=== PATIENT | female | born 1955 | race Caucasian/White ===

== ENCOUNTER 2017-07-06 08:04 | Emergency (ER) | payer OTHER ==
[~2017-07-06] VITALS: Ht 157.5 cm; Wt 63.5 kg
[~2017-07-06 08:04] MED LIST: ALBU90OI INH; CODGUAEL PO; Mucinex600 MG PO; Prilosec Otc20 MG PO; Vistaril50 MG PO
[2017-07-06] MEDS ORDERED: HYDCHL25 PO (08:10)
[2017-07-06] MEDS ORDERED: ATEN25 PO (08:10)
[2017-07-06 09:01] LABS: Source, Urine Voided
[2017-07-06 09:07] LABS: BASOPHILS ABSOLUTE AUTO 0.04 K/mm3 (0.00-0.23); BASOPHILS PERCENT AUTO 1 % (0-2); EOSINOPHILS ABSOLUTE AUTO 0.08 K/mm3 (0.00-0.68); EOSINOPHILS PERCENT AUTO 1 % (0-6); Hematocrit 39.9 % (33.0-51.0); Hemoglobin 13.5 g/dL (11.5-16.0); IMMATURE GRAN ABSOLUTE AUTO 0.02 K/mm3 (0.00-0.10); IMMATURE GRAN PERCENT AUTO 0 % (0-1); LYMPHOCYTES ABSOLUTE AUTO 1.84 K/mm3 (0.84-5.20); LYMPHOCYTES PERCENT AUTO 24 % (21-46); MONOCYTES ABSOLUTE AUTO 0.41 K/mm3 (0.16-1.47); MONOCYTES PERCENT AUTO 5 % (4-13); Mean Corpuscular HGB 34.4 pg (26.0-34.0); Mean Corpuscular HGB Conc 33.8 g/dL (31.5-36.5); Mean Corpuscular Volume 102 fL (80-100); Mean Platelet Volume 9.4 fL (9.1-12.4); NEUTROPHILS ABSOLUTE AUTO 5.28 K/mm3 (1.96-9.15); NEUTROPHILS PERCENT AUTO 69 % (41-73); Platelet Count 207 K/mm3 (150-400); RDW Coefficient Variation 11.5 % (11.7-14.2); RDW Standard Deviation 42.8 fL (35.1-46.3); Red Blood Cell Count 3.92 M/mm3 (3.80-5.20); White Blood Cell Count 7.67 K/mm3 (4.00-11.30)
[2017-07-06 09:13] LABS: Blood, Urine Neg (Neg); Glucose Qualitative, Urine Neg (Neg); Ketones, Urine 1+ (Neg); Leukocyte Esterase, Urine 1+ (Neg); Nitrite, Urine Neg (Neg); Protein, Urine 2+ (Neg); Urobilinogen, Urine 2+ (Normal)
[2017-07-06 09:36] LABS: Alanine Aminotransfer (ALT/SGP 29 U/L (12-78); Albumin/Globulin Ratio 0.5 (0.8-1.8); Alk Phos 151 U/L (50-136); Anion Gap 12 mmol/L (6-16); Aspartate Aminotrans (AST/SGOT 58 U/L (12-37); Bilirubin, Total 1.4 mg/dL (0.1-1.0); Blood Urea Nitrogen 12 mg/dL (8-24); Bun/Creatinine Ratio 15.5 (12.0-20.0); CO2, Blood 24 mmol/L (21-32); Calcium, Blood 9.1 mg/dL (8.5-10.1); Chloride, Blood 99 mmol/L (98-108); Creatinine, Blood 0.77 mg/dL (0.40-1.00); Globulin, Blood 5.8 g/dL (2.2-4.0); Glomerular Filtration Rate >60 (60-); Glucose, Blood 120 mg/dL (70-99); Potassium, Blood 3.4 mmol/L (3.5-5.5); Sodium, Blood 135 mmol/L (136-145); Total Protein, Blood 8.8 g/dL (6.4-8.2)
[2017-07-06 09:37] LABS: Influenza A Negative (NEGATIVE); Influenza B Negative (NEGATIVE)
[2017-07-06 09:42] LABS: Bilirubin, Urine 1+ (Neg)
[2017-07-06 09:43] LABS: Appearance, Urine Hazy (Clear); Color, Urine Amber (P-Yellow)
[2017-07-06 09:46] LABS: Red Blood Cells, Urine Not Seen /hpf (0-2)
[2017-07-06 09:47] LABS: Bacteria Few /hpf; Mucus Light (0-Heavy); Squamous Epithelial Cells Few /hpf (Few)
[2017-07-06] MEDS ORDERED: Zofran Odt4 MG SL (10:43)
== END 2017-07-06 11:00 | disposition home or self-care (01) ==
LOC: ER 08:04
PROVIDERS: Psychiatry & Neurology Psychiatry
DX: R11.2 Nausea with vomiting, unspecified (principal); R19.7 Diarrhea, unspecified; I10 Essential (primary) hypertension; J45.909 Unspecified asthma, uncomplicated; K21.9 Gastro-esophageal reflux disease without esophagitis; F41.9 Anxiety disorder, unspecified; Z88.5 Allergy status to narcotic agent; Z88.8 Allergy status to other drugs, medicaments and biological substances; Z79.899 Other long term (current) drug therapy
CPT/HCPCS: 36415; 71046; 76705; 80053; 81001; 83690; 85025; 87086; 87804; 96361; 96374; 96375; 96376; 99284; J2405; J3010; J7030

== ENCOUNTER 2018-07-12 08:34 | Emergency (ER) | payer OTHER ==
[~2018-07-12] VITALS: Ht 157.5 cm; Wt 65.8 kg
[~2018-07-12 08:34] MED LIST changes: +ATEN25 PO; +HYDCHL25 PO; +Zofran Odt4 MG SL
[2018-07-12 09:17] LABS: BASOPHILS ABSOLUTE AUTO 0.05 K/mm3 (0.00-0.23); BASOPHILS PERCENT AUTO 1 % (0-2); EOSINOPHILS PERCENT AUTO 2 % (0-6); Hemoglobin 12.5 g/dL (11.5-16.0); IMMATURE GRAN ABSOLUTE AUTO 0.01 K/mm3 (0.00-0.10); IMMATURE GRAN PERCENT AUTO 0 % (0-1); LYMPHOCYTES PERCENT AUTO 34 % (21-46); MONOCYTES ABSOLUTE AUTO 0.42 K/mm3 (0.16-1.47); MONOCYTES PERCENT AUTO 9 % (4-13); Mean Corpuscular HGB 33.8 pg (26.0-34.0); Mean Corpuscular HGB Conc 34.7 g/dL (31.5-36.5); Mean Corpuscular Volume 97 fL (80-100); Mean Platelet Volume 9.8 fL (9.1-12.4); NEUTROPHILS ABSOLUTE AUTO 2.38 K/mm3 (1.96-9.15); NEUTROPHILS PERCENT AUTO 54 % (41-73); Platelet Count 95 K/mm3 (150-400); RDW Coefficient Variation 12.6 % (11.7-14.2); RDW Standard Deviation 44.9 fL (35.1-46.3); White Blood Cell Count 4.46 K/mm3 (4.00-11.30)
[2018-07-12 09:38] LABS: Alanine Aminotransfer (ALT/SGP 21 U/L (12-78); Albumin, Blood 3.2 g/dL (3.4-5.0); Albumin/Globulin Ratio 0.6 (0.8-1.8); Alk Phos 104 U/L (50-136); Anion Gap 8 mmol/L (6-16); Aspartate Aminotrans (AST/SGOT 34 U/L (12-37); Blood Urea Nitrogen 11 mg/dL (8-24); Bun/Creatinine Ratio 16.9 (12.0-20.0); CO2, Blood 24 mmol/L (21-32); Calcium, Blood 9.2 mg/dL (8.5-10.1); Chloride, Blood 103 mmol/L (98-108); Creatinine, Blood 0.65 mg/dL (0.40-1.00); Globulin, Blood 5.4 g/dL (2.2-4.0); Glomerular Filtration Rate >60 (60-); Glucose, Blood 97 mg/dL (70-99); Potassium, Blood 3.6 mmol/L (3.5-5.5); Sodium, Blood 135 mmol/L (136-145); Total Protein, Blood 8.6 g/dL (6.4-8.2); Troponin I <0.015 ng/mL (0.000-0.040)
== END 2018-07-12 10:40 | disposition home or self-care (01) ==
LOC: ER 08:34
PROVIDERS: Emergency Medicine
DX: R06.00 Dyspnea, unspecified (principal); M67.432 Ganglion, left wrist; M67.431 Ganglion, right wrist; K21.9 Gastro-esophageal reflux disease without esophagitis; Z87.891 Personal history of nicotine dependence; Z79.899 Other long term (current) drug therapy
CPT/HCPCS: 36415; 71046; 80053; 83880; 84484; 85025; 93005; 93010; 99285-25

== ENCOUNTER → 2018-07-20 | Outpatient (CLI) | payer OTHER ==
[2018-07-20 15:15] LABS: CHOL/HDL RATIO 3.9; Cholesterol 243 mg/dL (50-200); HDL Cholesterol 63 mg/dL (>39); LDL/HDL RATIO 2.5; Low Density Lipoprotein Chol 156 mg/dL (0-110); Triglycerides 121 mg/dL (30-160); Very Low Density Lipoprot Chol 24 mg/dL (6-32)
== END | disposition home or self-care (01) ==
LOC: LAB SHORT 14:55 → LAB 14:55
PROVIDERS: Physician Assistant
DX: E78.5 Hyperlipidemia, unspecified (principal)
CPT/HCPCS: 80061

== ENCOUNTER 2018-08-16 02:46 | Emergency (ER) | payer OTHER ==
[~2018-08-16] VITALS: Ht 157.5 cm; Wt 65.8 kg
[2018-08-16 03:13] LABS: BASOPHILS ABSOLUTE AUTO 0.04 K/mm3 (0.00-0.23); BASOPHILS PERCENT AUTO 1 % (0-2); EOSINOPHILS ABSOLUTE AUTO 0.08 K/mm3 (0.00-0.68); EOSINOPHILS PERCENT AUTO 2 % (0-6); Hematocrit 31.9 % (33.0-51.0); IMMATURE GRAN ABSOLUTE AUTO 0.02 K/mm3 (0.00-0.10); IMMATURE GRAN PERCENT AUTO 0 % (0-1); LYMPHOCYTES ABSOLUTE AUTO 1.68 K/mm3 (0.84-5.20); LYMPHOCYTES PERCENT AUTO 31 % (21-46); MONOCYTES ABSOLUTE AUTO 0.49 K/mm3 (0.16-1.47); MONOCYTES PERCENT AUTO 9 % (4-13); Mean Corpuscular HGB 34.8 pg (26.0-34.0); Mean Corpuscular HGB Conc 34.5 g/dL (31.5-36.5); Mean Corpuscular Volume 101 fL (80-100); NEUTROPHILS PERCENT AUTO 57 % (41-73); RDW Coefficient Variation 12.9 % (11.7-14.2); RDW Standard Deviation 47.6 fL (35.1-46.3); Red Blood Cell Count 3.16 M/mm3 (3.80-5.20); White Blood Cell Count 5.41 K/mm3 (4.00-11.30)
[2018-08-16 03:15] LABS: Mean Platelet Volume 10.6 fL (9.1-12.4)
[2018-08-16 03:16] LABS: Platelet Count 39 K/mm3 (150-400)
[2018-08-16 03:25] LABS: Alanine Aminotransfer (ALT/SGP 28 U/L (12-78); Albumin, Blood 3.2 g/dL (3.4-5.0); Albumin/Globulin Ratio 0.6 (0.8-1.8); Alk Phos 109 U/L (50-136); Anion Gap 15 mmol/L (6-16); Aspartate Aminotrans (AST/SGOT 61 U/L (12-37); Bilirubin, Total 3.2 mg/dL (0.1-1.0); Blood Urea Nitrogen 17 mg/dL (8-24); Bun/Creatinine Ratio 26.9 (12.0-20.0); CO2, Blood 21 mmol/L (21-32); Calcium, Blood 8.8 mg/dL (8.5-10.1); Chloride, Blood 99 mmol/L (98-108); Creatinine, Blood 0.63 mg/dL (0.40-1.00); Ethanol (Alcohol), Blood, Med <3 mg/dL; Globulin, Blood 5.1 g/dL (2.2-4.0); Glomerular Filtration Rate >60 (60-); Glucose, Blood 77 mg/dL (70-99); Potassium, Blood 3.5 mmol/L (3.5-5.5); Sodium, Blood 135 mmol/L (136-145); Total Protein, Blood 8.3 g/dL (6.4-8.2)
[2018-08-16] MEDS ORDERED: CHLO25 PO (04:05)
[2018-08-16] MEDS ORDERED: ONDA4ODT MM (04:06)
== END 2018-08-16 04:23 | disposition home or self-care (01) ==
LOC: ER 02:46
PROVIDERS: Emergency Medicine
DX: F10.239 Alcohol dependence with withdrawal, unspecified (principal); R19.7 Diarrhea, unspecified; D69.6 Thrombocytopenia, unspecified; E80.6 Other disorders of bilirubin metabolism; Y90.0 Blood alcohol level of less than 20 mg/100 ml; K21.9 Gastro-esophageal reflux disease without esophagitis; J45.909 Unspecified asthma, uncomplicated; I10 Essential (primary) hypertension; F41.9 Anxiety disorder, unspecified; Z88.5 Allergy status to narcotic agent; Z88.8 Allergy status to other drugs, medicaments and biological substances; Z79.899 Other long term (current) drug therapy; Z87.891 Personal history of nicotine dependence
CPT/HCPCS: 80053; 83690; 85025; 93005; 93010; 96374; 96375; 99285-25; G0480; J2060; J2550; J7030

== ENCOUNTER → 2018-11-30 | Outpatient (CLI) | payer OTHER ==
[~2018-11-30] MED LIST changes: +CHLO25 PO; +LISI5; +ONDA4ODT MM
[2018-11-30 21:11] LABS: Hematocrit 35.5 % (33.0-51.0); Hemoglobin 11.9 g/dL (11.5-16.0); Mean Corpuscular HGB 34.6 pg (26.0-34.0); Mean Corpuscular HGB Conc 33.5 g/dL (31.5-36.5); Mean Corpuscular Volume 103 fL (80-100); Mean Platelet Volume 11.2 fL (9.1-12.4); Platelet Count 68 K/mm3 (150-400); RDW Coefficient Variation 13.8 % (11.7-14.2); RDW Standard Deviation 52.2 fL (35.1-46.3); Red Blood Cell Count 3.44 M/mm3 (3.80-5.20); White Blood Cell Count 4.76 K/mm3 (4.00-11.30)
[2018-11-30 21:32] LABS: BASOPHILS PERCENT MAN 0 % (0-2); EOSINOPHILS ABSOLUTE MAN 0.04 K/mm3 (0.00-0.68); EOSINOPHILS PERCENT MAN 1 % (0-6); LYMPHOCYTES ABSOLUTE MAN 1.61 K/mm3 (0.84-5.20); LYMPHOCYTES PERCENT MAN 34 % (21-46); MONOCYTES ABSOLUTE MAN 0.38 K/mm3 (0.16-1.47); MONOCYTES PERCENT MAN 8 % (4-13); NEUTROPHILS ABSOLUTE MAN 2.71 K/mm3 (1.96-9.15); SEG NEUTROPHILS PERCENT MAN 57 % (41-73); TOTAL CELLS COUNTED 100
[2018-11-30 21:36] LABS: Alanine Aminotransfer (ALT/SGP 35 U/L (12-78); Albumin, Blood 3.4 g/dL (3.4-5.0); Albumin/Globulin Ratio 0.6 (0.8-1.8); Alk Phos 118 U/L (50-136); Anion Gap 8 mmol/L (6-16); Aspartate Aminotrans (AST/SGOT 53 U/L (12-37); Blood Urea Nitrogen 18 mg/dL (8-24); Bun/Creatinine Ratio 27.3 (12.0-20.0); CO2, Blood 26 mmol/L (21-32); Calcium, Blood 8.8 mg/dL (8.5-10.1); Chloride, Blood 103 mmol/L (98-108); Creatinine, Blood 0.66 mg/dL (0.40-1.00); Globulin, Blood 5.5 g/dL (2.2-4.0); Glomerular Filtration Rate >60 (60-); Glucose, Blood 90 mg/dL (70-99); Potassium, Blood 3.6 mmol/L (3.5-5.5); Sodium, Blood 137 mmol/L (136-145); Total Protein, Blood 8.9 g/dL (6.4-8.2)
== END | disposition home or self-care (01) ==
LOC: LAB 20:29 → LAB SHORT 20:29
PROVIDERS: Physician Assistant
DX: D69.6 Thrombocytopenia, unspecified (principal); I10 Essential (primary) hypertension
CPT/HCPCS: 80053; 85007; 85027

== ENCOUNTER → 2018-12-23 | Outpatient (CLI) | payer OTHER | END | disposition home or self-care (01) | LOC: LAB 18:11 → LAB SHORT 18:11 | DX: D51.8 Other vitamin B12 deficiency anemias (principal) | CPT/HCPCS: 82607; 82746 ==

== ENCOUNTER 2019-01-12 09:26 | Emergency (ER) | payer OTHER ==
[~2019-01-12] VITALS: Ht 157.5 cm; Wt 64.4 kg
[~2019-01-12 09:26] MED LIST changes: -LISI5
[2019-01-12] MEDS ORDERED: LISI5 (09:52)
== END 2019-01-12 11:41 | disposition home or self-care (01) ==
LOC: ER 09:26
DX: M19.042 Primary osteoarthritis, left hand (principal); M19.041 Primary osteoarthritis, right hand; Z88.5 Allergy status to narcotic agent; Z88.8 Allergy status to other drugs, medicaments and biological substances; Z79.899 Other long term (current) drug therapy; K21.9 Gastro-esophageal reflux disease without esophagitis; J45.909 Unspecified asthma, uncomplicated; I10 Essential (primary) hypertension; F41.9 Anxiety disorder, unspecified; Z87.891 Personal history of nicotine dependence
CPT/HCPCS: 73120; 73130; 99283-25; A9270-GY

== ENCOUNTER 2019-05-22 18:22 | Emergency (ER) | payer OTHER ==
[~2019-05-22] VITALS: Ht 157.5 cm; Wt 65.8 kg
[~2019-05-22 18:22] MED LIST changes: +LISI5
== END 2019-05-22 19:50 | disposition home or self-care (01) ==
LOC: ER 18:22
DX: F41.9 Anxiety disorder, unspecified (principal); J45.909 Unspecified asthma, uncomplicated; I10 Essential (primary) hypertension; K21.9 Gastro-esophageal reflux disease without esophagitis; Z88.5 Allergy status to narcotic agent; Z88.8 Allergy status to other drugs, medicaments and biological substances; Z79.899 Other long term (current) drug therapy; Z87.891 Personal history of nicotine dependence
CPT/HCPCS: 36415; 93005; 93010; 99283-25

== ENCOUNTER 2019-09-05 08:19 | Inpatient (IN) | payer OTHER ==
[~2019-09-05] VITALS: Ht 157.5 cm; Wt 69.9 kg
[2019-09-05 08:42] LABS: BASOPHILS ABSOLUTE AUTO 0.06 K/mm3 (0.00-0.23); BASOPHILS PERCENT AUTO 1 % (0-2); EOSINOPHILS ABSOLUTE AUTO 0.02 K/mm3 (0.00-0.68); EOSINOPHILS PERCENT AUTO 0 % (0-6); Hematocrit 21.3 % (33.0-51.0); Hemoglobin 6.7 g/dL (11.5-16.0); IMMATURE GRAN ABSOLUTE AUTO 0.06 K/mm3 (0.00-0.10); IMMATURE GRAN PERCENT AUTO 1 % (0-1); LYMPHOCYTES PERCENT AUTO 12 % (21-46); MONOCYTES ABSOLUTE AUTO 0.72 K/mm3 (0.16-1.47); MONOCYTES PERCENT AUTO 9 % (4-13); Mean Corpuscular HGB 34.7 pg (26.0-34.0); Mean Corpuscular HGB Conc 31.5 g/dL (31.5-36.5); Mean Corpuscular Volume 110 fL (80-100); Mean Platelet Volume 11.6 fL (9.1-12.4); NEUTROPHILS ABSOLUTE AUTO 6.18 K/mm3 (1.96-9.15); NEUTROPHILS PERCENT AUTO 77 % (41-73); Platelet Count 79 K/mm3 (150-400); RDW Coefficient Variation 15.6 % (11.7-14.2); RDW Standard Deviation 63.1 fL (35.1-46.3); Red Blood Cell Count 1.93 M/mm3 (3.80-5.20); White Blood Cell Count 8.04 K/mm3 (4.00-11.30)
[2019-09-05 08:51] LABS: Alanine Aminotransfer (ALT/SGP 48 U/L (12-78); Albumin, Blood 2.3 g/dL (3.4-5.0); Albumin/Globulin Ratio 0.4 (0.8-1.8); Alk Phos 108 U/L (50-136); Anion Gap 14 mmol/L (6-16); Aspartate Aminotrans (AST/SGOT 158 U/L (12-37); Bilirubin, Total 5.5 mg/dL (0.1-1.0); Blood Urea Nitrogen 43 mg/dL (8-24); Bun/Creatinine Ratio 47.5 (12.0-20.0); CO2, Blood 19 mmol/L (21-32); Calcium, Blood 8.1 mg/dL (8.5-10.1); Chloride, Blood 99 mmol/L (98-108); Creatinine, Blood 0.91 mg/dL (0.40-1.00); Globulin, Blood 5.2 g/dL (2.2-4.0); Glomerular Filtration Rate >60 (60-); Glucose, Blood 128 mg/dL (70-99); Potassium, Blood 4.1 mmol/L (3.5-5.5); Sodium, Blood 132 mmol/L (136-145); Total Protein, Blood 7.5 g/dL (6.4-8.2)
[2019-09-05] MEDS ORDERED: Prinivil10 MG PO (10:52)
[2019-09-05 14:31] LABS: Hematocrit 22.9 % (33.0-51.0); Hemoglobin 7.5 g/dL (11.5-16.0)
[2019-09-05 14:50] LABS: Percent Saturation 21.7 % (15.0-50.0)
[2019-09-05 17:34] LABS: U Amphetamine Screen Not Detected; U Barbituate Screen Not Detected; U Benzodiazapine Screen Not Detected; U Buprenorphine Screen Not Detected; U Cannabinoids Screen Not Detected; U Cocaine Screen Not Detected; U Methadone Screen Not Detected; U Methamphetamine Screen Not Detected; U Opiates Screen Not Detected; U Oxycodone Screen Not Detected; U Phencyclidine Screen Not Detected; U Propoxyphene Screen Not Detected
[2019-09-05 17:37] LABS: Source, Urine Clean Catch
[2019-09-05 17:48] LABS: Blood, Urine 1+ (Neg); Glucose Qualitative, Urine Neg (Neg); Ketones, Urine 2+ (Neg); Leukocyte Esterase, Urine 1+ (Neg); Nitrite, Urine Neg (Neg); Protein, Urine 1+ (Neg); Specific Gravity, Urine 1.015 (1.003-1.022); Urobilinogen, Urine 2+ (Normal)
[2019-09-05 17:56] LABS: Appearance, Urine Clear (Clear); Bilirubin, Urine 1+ (Neg); Color, Urine Amber (P-Yellow)
[2019-09-05 17:57] LABS: Bacteria Mod /hpf; Squamous Epithelial Cells Few /hpf (Few)
--- NOTE | 2019-09-05 19:27 | NUR ---
SHIFT SUMMARY: PATIENT ADMIT FROM ED THIS SHIFT. PT A&O; CALM AND COOPERATIVE WITH CARE. NO C/O PAIN SINCE ARRIVAL ON MEDICAL. PRBCs X2U THIS SHIFT; PT TOLERATED WELL. HX ETOH; CIWA NEG. IV FLUIDS & SANDOSTATIN CONTINUING. REPORT GIVEN TO ONCOMING RN.
[2019-09-05 20:07] LABS: Hematocrit 26.2 % (33.0-51.0); Hemoglobin 8.8 g/dL (11.5-16.0)
[2019-09-06 02:16] LABS: BASOPHILS ABSOLUTE AUTO 0.04 K/mm3 (0.00-0.23); BASOPHILS PERCENT AUTO 1 % (0-2); EOSINOPHILS ABSOLUTE AUTO 0.15 K/mm3 (0.00-0.68); EOSINOPHILS PERCENT AUTO 3 % (0-6); Hematocrit 25.1 % (33.0-51.0); Hemoglobin 8.5 g/dL (11.5-16.0); IMMATURE GRAN ABSOLUTE AUTO 0.01 K/mm3 (0.00-0.10); IMMATURE GRAN PERCENT AUTO 0 % (0-1); LYMPHOCYTES ABSOLUTE AUTO 1.18 K/mm3 (0.84-5.20); LYMPHOCYTES PERCENT AUTO 20 % (21-46); MONOCYTES ABSOLUTE AUTO 0.56 K/mm3 (0.16-1.47); MONOCYTES PERCENT AUTO 10 % (4-13); Mean Corpuscular HGB 33.3 pg (26.0-34.0); Mean Corpuscular HGB Conc 33.9 g/dL (31.5-36.5); NEUTROPHILS ABSOLUTE AUTO 3.87 K/mm3 (1.96-9.15); NEUTROPHILS PERCENT AUTO 67 % (41-73); Platelet Count 53 K/mm3 (150-400); RDW Coefficient Variation 20.5 % (11.7-14.2); RDW Standard Deviation 72.4 fL (35.1-46.3); Red Blood Cell Count 2.55 M/mm3 (3.80-5.20); White Blood Cell Count 5.81 K/mm3 (4.00-11.30)
[2019-09-06 02:19] LABS: Mean Corpuscular Volume 98 fL (80-100)
[2019-09-06 02:28] LABS: International Normalized Ratio 1.4; Prothrombin Time Results 14.7 Sec (9.7-11.5)
[2019-09-06 02:29] LABS: Anion Gap 8 mmol/L (6-16); Blood Urea Nitrogen 34 mg/dL (8-24); Bun/Creatinine Ratio 38.4 (12.0-20.0); CO2, Blood 25 mmol/L (21-32); Calcium, Blood 7.6 mg/dL (8.5-10.1); Chloride, Blood 104 mmol/L (98-108); Creatinine, Blood 0.89 mg/dL (0.40-1.00); Glomerular Filtration Rate >60 (60-); Glucose, Blood 133 mg/dL (70-99); Potassium, Blood 3.6 mmol/L (3.5-5.5); Sodium, Blood 137 mmol/L (136-145)
--- NOTE | 2019-09-06 04:25 | NUR ---
SHIFT SUMMARY ADMITTED FOR GI BLEED. FULL CODE. CIWA Q 4 HRS HAVE BEEN NEGATIVE. NPO @ MIDNIGHT THIS SHIFT FOR POSSIBLE SCOPE TODAY. DR SYLVESTER IS GI CONSULT. NS IS INFUSING @ 100 ML/HR, OCTREOTIDE @ 20 ML/HR. BANANA BAGS ARE SCHEDULED X2 MORE BAGS. HGB WAS UP TO 8.8, AND HCT WAS UP TO 26.2 AT LAST LAB DRAW - AWAITING NEW LABS.
--- NOTE | 2019-09-06 07:32 | NUR ---
09/06/19 0732 Akiko Huggins History, Chart, Medications and Allergies reviewed before start of procedure. 3-LEAD EKG REVIEWED WITH PHYSICIAN PRIOR TO START OF PROCEDURE. MONITOR INTACT WITH CONTINUOUS PULSE OXIMETRY AND INTERMITTENT BP. O2 VIA N/C INTACT THROUGHOUT SEDATION/PROCEDURE. PATIENT DETERMINED TO BE ASA APPROPRIATE FOR PROPOFOL SEDATION PRIOR TO START OF PROCEDURE BY DR. SYLVESTER.
[2019-09-06 09:31] LABS: Hematocrit 27.7 % (33.0-51.0); Hemoglobin 9.1 g/dL (11.5-16.0)
[2019-09-06 14:55] LABS: Albumin, Body Fluid 0.3 g/dL
[2019-09-06 14:58] LABS: Automated BF WBC Count 0.059 K/mm3 (0-999); Body Fluid WBC Count 59 /mm3 (0-999)
[2019-09-06 15:34] LABS: RBC Count, Body Fluid 475 /mm3 (0-0)
[2019-09-06 15:37] LABS: Appearance, Body Fluid Clear (Clear); Color, Body Fluid Yellow (None-Yellow)
[2019-09-06 16:07] LABS: Total Cell Count, Body Fluid 100
--- NOTE | 2019-09-06 19:27 | NUR ---
SHIFT SUMMARY: PT A&O CALM AND COOPERATIVE WITH CARE; SBA TO BATHROOM. UPPER ENDO c BANDING LIGATION THIS SHIFT; PT TOLERATED WELL. THERAPEUTIC PARACENTESIS THIS SHIFT; PT TOLERATED WELL; VSS; NO C/O PAIN/NAUSEA THIS SHIFT. CIWA Q4H; SCORE=0 THROUGHOUT SHIFT. IV FLUIDS CONTINUING. REPORT GIVEN TO ONCOMING RN.
[2019-09-07 04:58] LABS: Hematocrit 26.3 % (33.0-51.0); Hemoglobin 8.6 g/dL (11.5-16.0); Mean Corpuscular HGB Conc 32.7 g/dL (31.5-36.5); Mean Platelet Volume 10.4 fL (9.1-12.4); Platelet Count 57 K/mm3 (150-400); RDW Coefficient Variation 20.1 % (11.7-14.2); Red Blood Cell Count 2.61 M/mm3 (3.80-5.20); White Blood Cell Count 4.26 K/mm3 (4.00-11.30)
[2019-09-07 05:00] LABS: Mean Corpuscular Volume 101 fL (80-100)
[2019-09-07 05:24] LABS: Alanine Aminotransfer (ALT/SGP 43 U/L (12-78); Albumin, Blood 2.1 g/dL (3.4-5.0); Albumin/Globulin Ratio 0.5 (0.8-1.8); Alk Phos 85 U/L (50-136); Anion Gap 8 mmol/L (6-16); Aspartate Aminotrans (AST/SGOT 130 U/L (12-37); Bilirubin, Total 4.6 mg/dL (0.1-1.0); Blood Urea Nitrogen 18 mg/dL (8-24); Bun/Creatinine Ratio 25.1 (12.0-20.0); CO2, Blood 23 mmol/L (21-32); Calcium, Blood 7.7 mg/dL (8.5-10.1); Chloride, Blood 107 mmol/L (98-108); Creatinine, Blood 0.72 mg/dL (0.40-1.00); Globulin, Blood 4.5 g/dL (2.2-4.0); Glomerular Filtration Rate >60 (60-); Glucose, Blood 105 mg/dL (70-99); Potassium, Blood 3.7 mmol/L (3.5-5.5); Sodium, Blood 138 mmol/L (136-145); Total Protein, Blood 6.6 g/dL (6.4-8.2)
--- NOTE | 2019-09-07 07:00 | NUR ---
ASSUMED CARE: PT RESTING QUIETLY IN BED WATCHING TV. SPEAKS WITH STAFF. DENIES NEEDS OR CONCERNS AT THIS TIME.
[2019-09-07 07:07] LABS: HBSAG SCREEN Negative (Negative); HEP A AB, IGM Negative (Negative); HEP B CORE AB, IGM Negative (Negative); HEP B CORE AB, TOT Positive (Negative); HEP C VIRUS AB 0.1 (0.0-0.9); HEP C VIRUS AB <0.1 (0.0-0.9)
--- NOTE | 2019-09-07 07:17 | NUR ---
SHIFT SUMMARY: PATIENT IS A&OX4, NO REPORTS OF PAIN OR DISCOMFORT, CIWA IS ZERO AND VS ARE STABLE. PATIENT IS INDEPENDANT IN THE ROOM. NO BM THIS SHIFT AND TOLERATING FULL LIQUID DIET WELL AND LOOKING FORWARD TO SOME SOLID FOOD TODAY.
[2019-09-07] MEDS ORDERED: PANT20 PO (12:42)
[2019-09-07] MEDS ORDERED: ATEN25 PO (12:42)
[2019-09-07] MEDS ORDERED: FURO40 PO (12:43)
[2019-09-07] MEDS ORDERED: Spironolactone100 MG PO (12:47)
--- NOTE | 2019-09-07 13:26 | NUR ---
PT'S IV DC'D WNL. DISCUSSED DC INSTRUCTIONS REGARDING MEDS AND FOLLOW UP APPOINTMENTS. ADVISED TO STOP ALCOHOL IN ORDER TO PROTECT REMAINING LIVER FUNCTION. PT AWARE OF NEED FOR LAB DRAW PRIOR TO PCP APPOINTMENT. DENIED FURTHER NEEDS OR CONCERNS. ESCORTED OUT VIA WHEEL CHAIR BY RICH
== END 2019-09-07 13:06 | disposition home or self-care (01) | DRG 381 ==
LOC: ER 08:19 → MEDS 09:59 → ENPENDDIS 09-07 11:00 → MEDS 09-07 13:06
PROVIDERS: Emergency Medicine; Internal Medicine; Internal Medicine Gastroenterology; ADMIT Internal Medicine
PROC: 0W9G3ZZ Drainage of Peritoneal Cavity, Percutaneous Approach (ICD-10-PCS; 2019-09-06)
PROC: 06L38CZ Occlusion of Esophageal Vein with Extraluminal Device, Via Natural or Artificial Opening Endoscopic (ICD-10-PCS; principal; 2019-09-06 07:30)
DX: K22.11 Ulcer of esophagus with bleeding (principal); D62 Acute posthemorrhagic anemia; E87.1 Hypo-osmolality and hyponatremia; K76.6 Portal hypertension; K21.9 Gastro-esophageal reflux disease without esophagitis; I85.01 Esophageal varices with bleeding; J45.909 Unspecified asthma, uncomplicated; Z87.891 Personal history of nicotine dependence; I10 Essential (primary) hypertension; E78.5 Hyperlipidemia, unspecified; E53.8 Deficiency of other specified B group vitamins; K70.10 Alcoholic hepatitis without ascites; K44.9 Diaphragmatic hernia without obstruction or gangrene; K70.31 Alcoholic cirrhosis of liver with ascites; F10.10 Alcohol abuse, uncomplicated; Y90.0 Blood alcohol level of less than 20 mg/100 ml; D69.6 Thrombocytopenia, unspecified
CPT/HCPCS: 36415; 36430; 49083; 71045; 74177; 80048; 80053; 80074; 81001; 82042; 82105; 82272; 82607; 82728; 82746; 83540; 83550; 85014; 85018; 85025; 85027; 85610; 85730; 86317; 86704; 86708; 86803; 86850; 86900; 86901; 86923; 87070; 87075; 87205; 87340; 89051; 93005; 93010; 96365-59; 96366; 96375; 99285-25; A9270-GY; C9113; G0480; J0696; J2250; J2354; J2405; J2704; J3010; J3411; J3475; J7030; J7042; J7050; J7120; P9016; Q9967

== ENCOUNTER 2020-01-30 18:10 | Emergency (ER) | payer OTHER ==
[~2020-01-30] VITALS: Ht 157.5 cm; Wt 68.0 kg
[~2020-01-30 18:10] MED LIST changes: +FURO40 PO; +PANT20 PO; +Prinivil10 MG PO; +Spironolactone100 MG PO
== END 2020-01-30 19:28 | disposition home or self-care (01) ==
LOC: ER 18:10
DX: F41.9 Anxiety disorder, unspecified (principal); K21.9 Gastro-esophageal reflux disease without esophagitis; J45.909 Unspecified asthma, uncomplicated; Z88.5 Allergy status to narcotic agent; Z88.8 Allergy status to other drugs, medicaments and biological substances; Z79.899 Other long term (current) drug therapy
CPT/HCPCS: 93005; 93010; 99283-25

== ENCOUNTER 2020-04-06 09:37 | Inpatient (IN) | payer OTHER ==
[~2020-04-06] VITALS: Ht 157.5 cm; Wt 62.4 kg
[2020-04-06 11:22] LABS: BASOPHILS ABSOLUTE AUTO 0.05 K/mm3 (0.00-0.23); BASOPHILS PERCENT AUTO 1 % (0-2); EOSINOPHILS ABSOLUTE AUTO 0.24 K/mm3 (0.00-0.68); EOSINOPHILS PERCENT AUTO 4 % (0-6); Hematocrit 30.5 % (33.0-51.0); Hemoglobin 9.9 g/dL (11.5-16.0); IMMATURE GRAN ABSOLUTE AUTO 0.02 K/mm3 (0.00-0.10); IMMATURE GRAN PERCENT AUTO 0 % (0-1); LYMPHOCYTES ABSOLUTE AUTO 1.09 K/mm3 (0.84-5.20); LYMPHOCYTES PERCENT AUTO 17 % (21-46); MONOCYTES ABSOLUTE AUTO 0.47 K/mm3 (0.16-1.47); MONOCYTES PERCENT AUTO 7 % (4-13); Mean Corpuscular HGB 37.5 pg (26.0-34.0); Mean Corpuscular HGB Conc 32.5 g/dL (31.5-36.5); Mean Corpuscular Volume 116 fL (80-100); Mean Platelet Volume 11.2 fL (9.1-12.4); NEUTROPHILS PERCENT AUTO 71 % (41-73); Platelet Count 86 K/mm3 (150-400); RDW Standard Deviation 59.4 fL (35.1-46.3); Red Blood Cell Count 2.64 M/mm3 (3.80-5.20); White Blood Cell Count 6.47 K/mm3 (4.00-11.30)
[2020-04-06 11:37] LABS: Alanine Aminotransfer (ALT/SGP 48 U/L (12-78); Albumin, Blood 2.3 g/dL (3.4-5.0); Albumin/Globulin Ratio 0.4 (0.8-1.8); Alk Phos 128 U/L (50-136); Anion Gap 7 mmol/L (6-16); Aspartate Aminotrans (AST/SGOT 119 U/L (12-37); Bilirubin, Total 5.4 mg/dL (0.1-1.0); Blood Urea Nitrogen 15 mg/dL (8-24); Bun/Creatinine Ratio 17.8 (12.0-20.0); CO2, Blood 24 mmol/L (21-32); Calcium, Blood 8.3 mg/dL (8.5-10.1); Chloride, Blood 108 mmol/L (98-108); Creatinine, Blood 0.84 mg/dL (0.40-1.00); Globulin, Blood 5.7 g/dL (2.2-4.0); Glomerular Filtration Rate >60 (60-); Glucose, Blood 133 mg/dL (70-99); Potassium, Blood 3.4 mmol/L (3.5-5.5); Sodium, Blood 139 mmol/L (136-145)
[2020-04-06] MEDS ORDERED: OMEP20ER PO (13:40)
[2020-04-06 13:50] LABS: Percent Saturation 72.1 % (15.0-50.0)
[2020-04-06 14:22] LABS: Albumin, Blood 2.3 g/dL (3.4-5.0); Albumin/Globulin Ratio 0.4 (0.8-1.8); Bilirubin, Direct 3.7 mg/dL (0.0-0.3); Bilirubin, Indirect 1.8 mg/dL (0.1-0.7); Bilirubin, Total 5.5 mg/dL (0.1-1.0); Globulin, Blood 5.8 g/dL (2.2-4.0); Total Protein, Blood 8.1 g/dL (6.4-8.2)
[2020-04-06 14:26] LABS: International Normalized Ratio 1.45; Prothrombin Time Results 15.2 Sec (9.7-11.5)
[2020-04-06 16:52] LABS: Hematocrit 29.2 % (33.0-51.0); Hemoglobin 9.5 g/dL (11.5-16.0); Mean Corpuscular HGB 37.3 pg (26.0-34.0); Mean Corpuscular HGB Conc 32.5 g/dL (31.5-36.5); Mean Corpuscular Volume 115 fL (80-100); Mean Platelet Volume 10.5 fL (9.1-12.4); Platelet Count 91 K/mm3 (150-400); RDW Coefficient Variation 13.7 % (11.7-14.2); RDW Standard Deviation 58.5 fL (35.1-46.3); Red Blood Cell Count 2.55 M/mm3 (3.80-5.20); White Blood Cell Count 5.67 K/mm3 (4.00-11.30)
--- NOTE | 2020-04-06 19:24 | NUR ---
ASSUMED CARE/SUMMARY PT ARRIVES IN ICU AT 1650, ALERT AND ORIENTED X 4, PLEASANT, CALM, AND COOPERATIVE. SHE IS IN SINUS RHYTHM WITH A STABLE RATE AND BLOOD PRESSURE. ON ROOM AIR, WITH SPO2 IN THE UPPER 90s. DENIES CHEST AND ABD PAIN. DENIES SOB AND NAUSEA. STATES SHE HASN'T HAD A BM SINCE BEFORE COMING TO THE HOSPITAL, AND THAT SHE "... REMEMBERS IT WAS RED, BUT THATS IT". SHE VOIDED TWICE, BUT VERY LITTLE AMMOUNTS EACH TIME; SHE CAN STAND UP AND MOVE AROUND INDEPENDENTLY - JUST NEEDS ASSISTANCE WITH THE CHORDS. NO DIZZINESS, OR LIGHTHEADEDNESS; STEADY GAIT. AFEBRILE, NO TREMORS. PT STATES SHE WAS AN ALCOHOLIC, BUT HASN'T HAD A DRINK SINCE DECEMBER; SHE STATES SHE USE TO "...DRINK VODKA FOR MANY YEARS". PT TALKS ABOUT GETTING TWO PARACENTESIS/TAPS IN THE PAST YEAR, BUT CAN'T TELL ME WHY OR WHAT FOR. SHE DOESN'T KNOW A LOT ABOUT HER MEDICAL HISTORY, BUT STATES ALL HER PARENTS AND GRANDPARENTS HAS HAD HEART PROBLEMS. SHE MAY HAVE ISSUES REMEMBERING MEDICAL INFORMATION. SHE HAS ELEVATED LIVER ENZYMES, AND BILIRUBIN AND IS SLIGHTLY JAUNDICED IN HER SKIN. LOT OF EDUCATION DONE REGARDING ESOPHAGEAL VARICES, PEPTIC ULCERS, GI BLEEDS, VITAL SIGNS, MEDICATIONS SHE'S TAKING, ETC... DONE SLOWLY WITH HER. SHE SEEMS RECEPTIVE TO THE INFORMATION. MOST OF HER SYSTEMS ARE WNL. SKIN IS OVERAL INTACT, AND WNL ASIDE FROM THE MILD JAUNDICE. BED LOW AND LOCKED. PT USES CALL LIGHT APPROPRIATELY AND DENIES ALL PAIN AND DISCOMFORT.
--- NOTE | 2020-04-06 19:30 | NUR ---
ASSUMED PT CARE. PT AWAKE, A&OX4. DENIES PAIN OR DISCOMFORT. STATES ABD PAIN SUBSIDED. LUNG SOUNDS CLEAR, IN SR. ABD DISTENDED BUT SOMEWHAT FIRM AND NONTENDER. NO LOWER EXTREMITY SWELLING NOTED. PT ABLE TO MAKE NEEDS KNOWN. REPOSITIONS INDEPENDENTLY.
[2020-04-06 20:54] LABS: Influenza A, PCR Negative (NEGATIVE); Influenza B, PCR Negative (NEGATIVE); Resp Syncytial Virus, PCR Negative (NEGATIVE); SARS-Cov-2 (COVID-19) PCR, MMC Negative (NEGATIVE)
[2020-04-06 23:14] LABS: Hematocrit 29.5 % (33.0-51.0); Hemoglobin 9.7 g/dL (11.5-16.0); Mean Corpuscular HGB 37.9 pg (26.0-34.0); Mean Corpuscular HGB Conc 32.9 g/dL (31.5-36.5); Mean Corpuscular Volume 115 fL (80-100); Mean Platelet Volume 10.9 fL (9.1-12.4); Platelet Count 96 K/mm3 (150-400); RDW Coefficient Variation 13.7 % (11.7-14.2); RDW Standard Deviation 58.8 fL (35.1-46.3); Red Blood Cell Count 2.56 M/mm3 (3.80-5.20); White Blood Cell Count 6.91 K/mm3 (4.00-11.30)
[2020-04-07 04:10] LABS: BASOPHILS ABSOLUTE AUTO 0.06 K/mm3 (0.00-0.23); BASOPHILS PERCENT AUTO 1 % (0-2); EOSINOPHILS ABSOLUTE AUTO 0.25 K/mm3 (0.00-0.68); EOSINOPHILS PERCENT AUTO 4 % (0-6); Hematocrit 29.4 % (33.0-51.0); Hemoglobin 9.6 g/dL (11.5-16.0); IMMATURE GRAN ABSOLUTE AUTO 0.02 K/mm3 (0.00-0.10); IMMATURE GRAN PERCENT AUTO 0 % (0-1); LYMPHOCYTES ABSOLUTE AUTO 1.56 K/mm3 (0.84-5.20); LYMPHOCYTES PERCENT AUTO 22 % (21-46); MONOCYTES ABSOLUTE AUTO 0.55 K/mm3 (0.16-1.47); MONOCYTES PERCENT AUTO 8 % (4-13); Mean Corpuscular HGB 37.5 pg (26.0-34.0); Mean Corpuscular HGB Conc 32.7 g/dL (31.5-36.5); Mean Corpuscular Volume 115 fL (80-100); Mean Platelet Volume 10.9 fL (9.1-12.4); NEUTROPHILS ABSOLUTE AUTO 4.69 K/mm3 (1.96-9.15); NEUTROPHILS PERCENT AUTO 66 % (41-73); Platelet Count 91 K/mm3 (150-400); RDW Coefficient Variation 13.8 % (11.7-14.2); RDW Standard Deviation 58.6 fL (35.1-46.3); Red Blood Cell Count 2.56 M/mm3 (3.80-5.20); White Blood Cell Count 7.13 K/mm3 (4.00-11.30)
[2020-04-07 04:30] LABS: Alanine Aminotransfer (ALT/SGP 48 U/L (12-78); Albumin, Blood 2.3 g/dL (3.4-5.0); Albumin/Globulin Ratio 0.4 (0.8-1.8); Alk Phos 107 U/L (50-136); Anion Gap 9 mmol/L (6-16); Aspartate Aminotrans (AST/SGOT 116 U/L (12-37); Bilirubin, Total 6.3 mg/dL (0.1-1.0); Blood Urea Nitrogen 12 mg/dL (8-24); Bun/Creatinine Ratio 16.2 (12.0-20.0); CO2, Blood 21 mmol/L (21-32); Calcium, Blood 8.4 mg/dL (8.5-10.1); Chloride, Blood 109 mmol/L (98-108); Creatinine, Blood 0.74 mg/dL (0.40-1.00); Globulin, Blood 5.6 g/dL (2.2-4.0); Glomerular Filtration Rate >60 (60-); Glucose, Blood 87 mg/dL (70-99); Phosphorus, Blood 2.4 mg/dL (2.5-4.9); Potassium, Blood 3.9 mmol/L (3.5-5.5); Sodium, Blood 139 mmol/L (136-145); Total Protein, Blood 7.9 g/dL (6.4-8.2)
[2020-04-07 04:37] LABS: Magnesium, Blood 1.1 mg/dL (1.6-2.4)
--- NOTE | 2020-04-07 06:09 | NUR ---
PT REMAINED STABLE THROUGHOUT THE NIGHT. PT COMPLETED BOWEL PREP, AFTER MULTIPLE STOOLS, SNALL AMOUNT OF BRIGHT RED BLOOD NOTED TO 3 STOOLS. PT. STEADY ON FEET, ABLE TO AMBULATE TO COMMODE WITH MINIMAL ASSIST. DENIES PAIN OR DISCOMFORT.
--- NOTE | 2020-04-07 07:53 | NUR ---
ASSUMED CARE RECEIVED REPORT FROM ANGELINA MCGUIRE. PT IS LYING IN BED, AWAKE, ALERT AND ORIENTED X 4 (SELF, SITUATION, SURROUNDINGS, AND DATE). SHE IS DENYING PAIN, SOB, AND NAUSEA. SINUS RHYTHM, STABLE VITALS (MAP > 65, SBP > 100, SPO2 UPPER 90s), AFEBRILE. SHE HAS SCDs IN PLACE. GLASSES ARE ON CURRENTLY. NO DISCOMFORT AT THE MOMENT, BESIDES NOT SLEEPING WELL LAST NIGHT D/T THE [place]. PT HAS BEEN HAVING CLEAR BOWEL MOVEMENTS FOR THE LAST FEW HOURS, PER NOC RN. BED LOW AND LOCKED. CALL LIGHT WITHIN REACH. DAY SURGERY IS CURRENTLY PREPPING FOR COLONOSCOPY SCHEDULED FOR [address] LU.
--- NOTE | 2020-04-07 08:11 | NUR ---
04/07/20 0811 Ed Shane PATIENT DETERMINED TO BE ASA APPROPRIATE FOR PROPOFOL SEDATION PRIOR TO START OF PROCEDURE BY . 3-LEAD EKG REVIEWED WITH PHYSICIAN PRIOR TO START OF PROCEDURE. History, Chart, Medications and Allergies reviewed before start of procedure. O2 VIA N/C INTACT THROUGHOUT SEDATION/PROCEDURE. MONITOR INTACT WITH CONTINUOUS PULSE OXIMETRY AND INTERMITTENT BP.
--- NOTE | 2020-04-07 09:54 | NUR ---
UPDATE PT DONE WITH PROCEDURE AROUND ~0910, 2 POLYPS REMOVED, AND BLOOD IN STOOLS WAS SAID TO BE FROM HEMORRHOIDS. PT IN GOOD CONDITION CURRENTLY, STABLE VITALS, SINUS RHYTHM, MAP > 65, ON ROOM AIR, SATING 96%+. PT IS BEING DISCHARGED.
[2020-04-07 10:04] LABS: Hemoglobin 8.1 g/dL (11.5-16.0); Mean Corpuscular HGB 38.2 pg (26.0-34.0); Mean Corpuscular HGB Conc 33.8 g/dL (31.5-36.5); Mean Corpuscular Volume 113 fL (80-100); Mean Platelet Volume 10.5 fL (9.1-12.4); Platelet Count 68 K/mm3 (150-400); RDW Coefficient Variation 13.7 % (11.7-14.2); RDW Standard Deviation 56.9 fL (35.1-46.3); Red Blood Cell Count 2.12 M/mm3 (3.80-5.20); White Blood Cell Count 4.42 K/mm3 (4.00-11.30)
[2020-04-07] MEDS ORDERED: ACET325 PO (11:04)
[2020-04-07] MEDS ORDERED: ONDA4ODT MM (11:06)
[2020-04-07] MEDS ORDERED: Inderal40 MG PO (11:08)
[2020-04-07] MEDS ORDERED: MAGNESIUM OXID500 MG PO (11:09)
== END 2020-04-07 11:55 | disposition home or self-care (01) | DRG 394 ==
LOC: ER 09:37 → ICUW 15:37
PROVIDERS: Emergency Medicine; Internal Medicine Gastroenterology; Physician Assistant; ADMIT Family Medicine
PROC: 0DBN8ZZ Excision of Sigmoid Colon, Via Natural or Artificial Opening Endoscopic (ICD-10-PCS; 2020-04-07)
PROC: 0DBK8ZZ Excision of Ascending Colon, Via Natural or Artificial Opening Endoscopic (ICD-10-PCS; principal; 2020-04-07 08:00)
DX: K64.4 Residual hemorrhoidal skin tags (principal); K76.6 Portal hypertension; E87.6 Hypokalemia; D69.6 Thrombocytopenia, unspecified; K70.31 Alcoholic cirrhosis of liver with ascites; I10 Essential (primary) hypertension; R74.8 Abnormal levels of other serum enzymes; Z20.828 Contact with and (suspected) exposure to other viral communicable diseases
CPT/HCPCS: 0241U; 36415; 76705; 80053; 80076; 82272; 82607; 82746; 83540; 83550; 83690; 83735; 84100; 85025; 85027; 85610; 86850; 86900; 86901; 88305; 93005; 93010; 99285-25; C9113; J2250; J2704; J3475; J3480; J7030; J7120

== ENCOUNTER 2020-05-05 13:06 | Emergency (ER) | payer OTHER ==
[~2020-05-05] VITALS: Ht 157.5 cm; Wt 65.8 kg
[~2020-05-05 13:06] MED LIST changes: +ACET325 PO; +Inderal40 MG PO; +MAGNESIUM OXID500 MG PO; +OMEP20ER PO
[2020-05-05 13:49] LABS: BASOPHILS ABSOLUTE AUTO 0.04 K/mm3 (0.00-0.23); BASOPHILS PERCENT AUTO 1 % (0-2); EOSINOPHILS ABSOLUTE AUTO 0.12 K/mm3 (0.00-0.68); EOSINOPHILS PERCENT AUTO 2 % (0-6); Hematocrit 27.6 % (33.0-51.0); IMMATURE GRAN ABSOLUTE AUTO 0.02 K/mm3 (0.00-0.10); IMMATURE GRAN PERCENT AUTO 0 % (0-1); LYMPHOCYTES ABSOLUTE AUTO 1.54 K/mm3 (0.84-5.20); LYMPHOCYTES PERCENT AUTO 27 % (21-46); MONOCYTES ABSOLUTE AUTO 0.52 K/mm3 (0.16-1.47); MONOCYTES PERCENT AUTO 9 % (4-13); Mean Corpuscular HGB 36.7 pg (26.0-34.0); Mean Corpuscular HGB Conc 32.6 g/dL (31.5-36.5); Mean Corpuscular Volume 113 fL (80-100); Mean Platelet Volume 9.6 fL (9.1-12.4); NEUTROPHILS ABSOLUTE AUTO 3.48 K/mm3 (1.96-9.15); NEUTROPHILS PERCENT AUTO 61 % (41-73); Platelet Count 108 K/mm3 (150-400); RDW Coefficient Variation 15.5 % (11.7-14.2); RDW Standard Deviation 63.7 fL (35.1-46.3); Red Blood Cell Count 2.45 M/mm3 (3.80-5.20); White Blood Cell Count 5.72 K/mm3 (4.00-11.30)
[2020-05-05 13:57] LABS: Alanine Aminotransfer (ALT/SGP 36 U/L (12-78); Albumin, Blood 2.3 g/dL (3.4-5.0); Albumin/Globulin Ratio 0.4 (0.8-1.8); Alk Phos 192 U/L (50-136); Anion Gap 10 mmol/L (6-16); Aspartate Aminotrans (AST/SGOT 79 U/L (12-37); Blood Urea Nitrogen 10 mg/dL (8-24); Bun/Creatinine Ratio 13.6 (12.0-20.0); CO2, Blood 21 mmol/L (21-32); Calcium, Blood 8.6 mg/dL (8.5-10.1); Chloride, Blood 110 mmol/L (98-108); Creatinine, Blood 0.74 mg/dL (0.40-1.00); Globulin, Blood 5.5 g/dL (2.2-4.0); Glomerular Filtration Rate >60 (60-); Glucose, Blood 141 mg/dL (70-99); Potassium, Blood 3.4 mmol/L (3.5-5.5); Sodium, Blood 141 mmol/L (136-145); Total Protein, Blood 7.8 g/dL (6.4-8.2)
[2020-05-05 18:12] LABS: Influenza A, PCR Negative (NEGATIVE); Influenza B, PCR Negative (NEGATIVE); Resp Syncytial Virus, PCR Negative (NEGATIVE); SARS-Cov-2 (COVID-19) PCR, MMC Negative (NEGATIVE)
== END 2020-05-05 18:56 | disposition short-term general hospital (02) ==
LOC: ER 13:06
PROVIDERS: Emergency Medicine
DX: K92.0 Hematemesis (principal); I85.01 Esophageal varices with bleeding; K21.9 Gastro-esophageal reflux disease without esophagitis; Z79.899 Other long term (current) drug therapy; Z20.828 Contact with and (suspected) exposure to other viral communicable diseases
CPT/HCPCS: 0241U; 36415; 80053; 85025; 86850; 86900; 86901; 93005; 93010; 96374; 99285-25; C9113; J7030

== ENCOUNTER 2020-06-22 01:38 | Emergency (ER) | payer OTHER ==
[~2020-06-22] VITALS: Ht 157.5 cm; Wt 63.5 kg
[2020-06-22 03:30] LABS: BASOPHILS ABSOLUTE AUTO 0.05 K/mm3 (0.00-0.23); BASOPHILS PERCENT AUTO 1 % (0-2); EOSINOPHILS ABSOLUTE AUTO 0.31 K/mm3 (0.00-0.68); EOSINOPHILS PERCENT AUTO 8 % (0-6); Hematocrit 29.6 % (33.0-51.0); Hemoglobin 10.1 g/dL (11.5-16.0); IMMATURE GRAN PERCENT AUTO 0 % (0-1); LYMPHOCYTES ABSOLUTE AUTO 1.26 K/mm3 (0.84-5.20); LYMPHOCYTES PERCENT AUTO 30 % (21-46); MONOCYTES ABSOLUTE AUTO 0.46 K/mm3 (0.16-1.47); MONOCYTES PERCENT AUTO 11 % (4-13); Mean Corpuscular HGB 34.1 pg (26.0-34.0); Mean Corpuscular HGB Conc 34.1 g/dL (31.5-36.5); Mean Corpuscular Volume 100 fL (80-100); Mean Platelet Volume 10.5 fL (9.1-12.4); NEUTROPHILS ABSOLUTE AUTO 2.06 K/mm3 (1.96-9.15); NEUTROPHILS PERCENT AUTO 50 % (41-73); Platelet Count 86 K/mm3 (150-400); RDW Coefficient Variation 13.9 % (11.7-14.2); RDW Standard Deviation 50.8 fL (35.1-46.3); Red Blood Cell Count 2.96 M/mm3 (3.80-5.20); White Blood Cell Count 4.14 K/mm3 (4.00-11.30)
[2020-06-22 03:49] LABS: Albumin, Blood 2.3 g/dL (3.4-5.0); Albumin/Globulin Ratio 0.5 (0.8-1.8); Alk Phos 162 U/L (50-136); Anion Gap 8 mmol/L (6-16); Aspartate Aminotrans (AST/SGOT 54 U/L (12-37); Bilirubin, Direct 1.1 mg/dL (0.0-0.3); Bilirubin, Indirect 1.4 mg/dL (0.1-0.7); Bilirubin, Total 2.5 mg/dL (0.1-1.0); Blood Urea Nitrogen 15 mg/dL (8-24); Bun/Creatinine Ratio 16.4 (12.0-20.0); CO2, Blood 20 mmol/L (21-32); Calcium, Blood 8.4 mg/dL (8.5-10.1); Chloride, Blood 110 mmol/L (98-108); Creatinine, Blood 0.91 mg/dL (0.40-1.00); Globulin, Blood 4.8 g/dL (2.2-4.0); Glomerular Filtration Rate >60 (60-); Glucose, Blood 102 mg/dL (70-99); Potassium, Blood 4.5 mmol/L (3.5-5.5); Sodium, Blood 138 mmol/L (136-145); Total Protein, Blood 7.1 g/dL (6.4-8.2)
[2020-06-22] MEDS ORDERED: ALDACTONE100 M1 PO (04:03)
[2020-06-22] MEDS ORDERED: PROP10 PO (04:04)
[2020-06-22 04:07] LABS: Magnesium, Blood 1.4 mg/dL (1.6-2.4)
[2020-06-22 04:08] LABS: Source, Urine Catheter
[2020-06-22 04:12] LABS: Appearance, Urine Clear (Clear); Bilirubin, Urine Neg (Neg); Blood, Urine 1+ (Neg); Color, Urine Yellow (P-Yellow); Glucose Qualitative, Urine Neg (Neg); Ketones, Urine Neg (Neg); Leukocyte Esterase, Urine 1+ (Neg); Nitrite, Urine Neg (Neg); Protein, Urine 1+ (Neg); Urobilinogen, Urine 1+ (Normal); pH, Urine 6.5 (5.0-8.0)
[2020-06-22 04:16] LABS: Alanine Aminotransfer (ALT/SGP 34 U/L (12-78)
[2020-06-22 05:33] LABS: Red Blood Cells, Urine 0-2 /hpf (0-2); Squamous Epithelial Cells Mod /hpf (Few)
[2020-06-22 05:34] LABS: Bacteria Few /hpf
[2020-06-22] MEDS ORDERED: Colace250 MG PO (06:08)
[2020-06-22] MEDS ORDERED: Roxicodone5 MG PO (06:08)
[2020-08-22] MEDS ORDERED: MULVITA PO (19:47)
[2020-08-22] MEDS ORDERED: OYSTER SHELL 51 EACH PO (19:48)
[2020-08-24] MEDS ORDERED: SULTRIDS PO (15:01)
[2020-08-24] MEDS ORDERED: OMEP20ER PO (15:03)
[2020-08-24] MEDS ORDERED: SUCR1 PO (15:04)
== END 2020-06-22 06:52 | disposition home or self-care (01) ==
LOC: ER 01:38
PROVIDERS: Emergency Medicine
DX: M48.56XA Collapsed vertebra, not elsewhere classified, lumbar region, initial encounter for fracture (principal); I10 Essential (primary) hypertension; K21.9 Gastro-esophageal reflux disease without esophagitis; E78.5 Hyperlipidemia, unspecified; J45.909 Unspecified asthma, uncomplicated; Z79.899 Other long term (current) drug therapy
CPT/HCPCS: 74177; 80048; 80076; 81001; 82140; 83690; 83735; 85025; 87086; 99284-25; Q9967

== ENCOUNTER 2020-06-28 09:06 | Emergency (ER) | payer OTHER ==
[~2020-06-28] VITALS: Ht 157.5 cm; Wt 63.5 kg
[~2020-06-28 09:06] MED LIST changes: +ALDACTONE100 M1 PO; +Colace250 MG PO; +PROP10 PO; +Roxicodone5 MG PO
[2020-06-28 09:35] LABS: BASOPHILS ABSOLUTE AUTO 0.07 K/mm3 (0.00-0.23); BASOPHILS PERCENT AUTO 1 % (0-2); EOSINOPHILS ABSOLUTE AUTO 0.31 K/mm3 (0.00-0.68); EOSINOPHILS PERCENT AUTO 6 % (0-6); Hematocrit 30.7 % (33.0-51.0); Hemoglobin 10.5 g/dL (11.5-16.0); IMMATURE GRAN PERCENT AUTO 0 % (0-1); LYMPHOCYTES ABSOLUTE AUTO 1.61 K/mm3 (0.84-5.20); LYMPHOCYTES PERCENT AUTO 33 % (21-46); MONOCYTES ABSOLUTE AUTO 0.42 K/mm3 (0.16-1.47); MONOCYTES PERCENT AUTO 9 % (4-13); Mean Corpuscular HGB 33.8 pg (26.0-34.0); Mean Corpuscular HGB Conc 34.2 g/dL (31.5-36.5); Mean Corpuscular Volume 99 fL (80-100); Mean Platelet Volume 10.6 fL (9.1-12.4); NEUTROPHILS ABSOLUTE AUTO 2.55 K/mm3 (1.96-9.15); NEUTROPHILS PERCENT AUTO 51 % (41-73); Platelet Count 94 K/mm3 (150-400); RDW Coefficient Variation 13.5 % (11.7-14.2); RDW Standard Deviation 48.6 fL (35.1-46.3); Red Blood Cell Count 3.11 M/mm3 (3.80-5.20); White Blood Cell Count 4.96 K/mm3 (4.00-11.30)
[2020-06-28 09:56] LABS: Albumin, Blood 2.6 g/dL (3.4-5.0); Albumin/Globulin Ratio 0.5 (0.8-1.8); Bilirubin, Total 2.8 mg/dL (0.1-1.0); Bun/Creatinine Ratio 17.1 (12.0-20.0); Creatinine, Blood 1.58 mg/dL (0.40-1.00); Total Protein, Blood 7.6 g/dL (6.4-8.2)
[2020-06-28 10:51] LABS: Source, Urine Clean Catch
[2020-06-28 10:56] LABS: Appearance, Urine Hazy (Clear); Bilirubin, Urine Neg (Neg); Blood, Urine 1+ (Neg); Color, Urine Yellow (P-Yellow); Glucose Qualitative, Urine Neg (Neg); Ketones, Urine Neg (Neg); Leukocyte Esterase, Urine 2+ (Neg); Nitrite, Urine Neg (Neg); Protein, Urine Neg (Neg); Urobilinogen, Urine 3+ (Normal)
[2020-06-28 11:15] LABS: Mucus Mod (0-Heavy); Squamous Epithelial Cells Many /hpf (Few)
[2020-06-28 11:16] LABS: Bacteria Few /hpf; Red Blood Cells, Urine 0-2 /hpf (0-2)
[2020-06-28] MEDS ORDERED: ONDA4ODT MM (11:59)
[2020-08-22] MEDS ORDERED: MULVITA PO (19:47)
[2020-08-22] MEDS ORDERED: OYSTER SHELL 51 EACH PO (19:48)
[2020-08-24] MEDS ORDERED: SULTRIDS PO (15:01)
[2020-08-24] MEDS ORDERED: OMEP20ER PO (15:03)
[2020-08-24] MEDS ORDERED: SUCR1 PO (15:04)
== END 2020-06-28 12:19 | disposition home or self-care (01) ==
LOC: ER 09:06
PROVIDERS: Emergency Medicine
DX: K76.9 Liver disease, unspecified (principal); R79.89 Other specified abnormal findings of blood chemistry; K21.9 Gastro-esophageal reflux disease without esophagitis; I10 Essential (primary) hypertension; E78.5 Hyperlipidemia, unspecified; J45.909 Unspecified asthma, uncomplicated; Z79.899 Other long term (current) drug therapy
CPT/HCPCS: 80053; 81001; 83690; 85025; 87086; 93005; 93010; 96374; 99284-25; J2405; J7120

== ENCOUNTER 2020-07-12 01:18 | Emergency (ER) | payer OTHER ==
[~2020-07-12] VITALS: Ht 162.6 cm; Wt 67.6 kg
[2020-07-12 01:55] LABS: BASOPHILS ABSOLUTE AUTO 0.05 K/mm3 (0.00-0.23); BASOPHILS PERCENT AUTO 1 % (0-2); EOSINOPHILS ABSOLUTE AUTO 0.33 K/mm3 (0.00-0.68); EOSINOPHILS PERCENT AUTO 6 % (0-6); Hematocrit 27.6 % (33.0-51.0); Hemoglobin 9.5 g/dL (11.5-16.0); IMMATURE GRAN ABSOLUTE AUTO 0.01 K/mm3 (0.00-0.10); IMMATURE GRAN PERCENT AUTO 0 % (0-1); LYMPHOCYTES ABSOLUTE AUTO 1.37 K/mm3 (0.84-5.20); LYMPHOCYTES PERCENT AUTO 25 % (21-46); MONOCYTES ABSOLUTE AUTO 0.62 K/mm3 (0.16-1.47); MONOCYTES PERCENT AUTO 11 % (4-13); Mean Corpuscular HGB 34.3 pg (26.0-34.0); Mean Corpuscular HGB Conc 34.4 g/dL (31.5-36.5); Mean Corpuscular Volume 100 fL (80-100); Mean Platelet Volume 10.5 fL (9.1-12.4); NEUTROPHILS ABSOLUTE AUTO 3.12 K/mm3 (1.96-9.15); NEUTROPHILS PERCENT AUTO 57 % (41-73); Platelet Count 95 K/mm3 (150-400); RDW Coefficient Variation 13.9 % (11.7-14.2); RDW Standard Deviation 50.1 fL (35.1-46.3); Red Blood Cell Count 2.77 M/mm3 (3.80-5.20)
[2020-07-12 02:06] LABS: Source, Urine Clean Catch
[2020-07-12 02:08] LABS: Alanine Aminotransfer (ALT/SGP 37 U/L (12-78); Albumin, Blood 2.4 g/dL (3.4-5.0); Albumin/Globulin Ratio 0.5 (0.8-1.8); Alk Phos 149 U/L (50-136); Anion Gap 5 mmol/L (6-16); Aspartate Aminotrans (AST/SGOT 53 U/L (12-37); Bilirubin, Total 2.4 mg/dL (0.1-1.0); Blood Urea Nitrogen 25 mg/dL (8-24); CO2, Blood 27 mmol/L (21-32); Calcium, Blood 8.8 mg/dL (8.5-10.1); Chloride, Blood 104 mmol/L (98-108); Creatinine, Blood 1.39 mg/dL (0.40-1.00); Ethanol (Alcohol), Blood, Med <3 mg/dL; Globulin, Blood 4.6 g/dL (2.2-4.0); Glomerular Filtration Rate 41 (60-); Glucose, Blood 113 mg/dL (70-99); Magnesium, Blood 1.4 mg/dL (1.6-2.4); Potassium, Blood 4.8 mmol/L (3.5-5.5); Sodium, Blood 136 mmol/L (136-145)
[2020-07-12 02:16] LABS: Blood, Urine Neg (Neg); Glucose Qualitative, Urine Neg (Neg); Ketones, Urine Neg (Neg); Leukocyte Esterase, Urine 1+ (Neg); Nitrite, Urine Neg (Neg); Protein, Urine Neg (Neg); Specific Gravity, Urine 1.015 (1.003-1.022); Urobilinogen, Urine 3+ (Normal)
[2020-07-12 02:22] LABS: Appearance, Urine Hazy (Clear); Bilirubin, Urine 1+ (Neg); Color, Urine Amber (P-Yellow)
[2020-07-12 02:23] LABS: Amorphous Light (0-Heavy); Bacteria Many /hpf; Red Blood Cells, Urine Not Seen /hpf (0-2); Squamous Epithelial Cells Many /hpf (Few); Uric Acid Crystals Few /hpf
[2020-07-12] MEDS ORDERED: ONDA4ODT MM (02:45)
[2020-08-22] MEDS ORDERED: MULVITA PO (19:47)
[2020-08-22] MEDS ORDERED: OYSTER SHELL 51 EACH PO (19:48)
[2020-08-24] MEDS ORDERED: SULTRIDS PO (15:01)
[2020-08-24] MEDS ORDERED: OMEP20ER PO (15:03)
[2020-08-24] MEDS ORDERED: SUCR1 PO (15:04)
== END 2020-07-12 03:30 | disposition home or self-care (01) ==
LOC: ER 01:18
PROVIDERS: Emergency Medicine
DX: E86.0 Dehydration (principal); E83.42 Hypomagnesemia; R11.2 Nausea with vomiting, unspecified; K70.9 Alcoholic liver disease, unspecified; K21.9 Gastro-esophageal reflux disease without esophagitis; E78.5 Hyperlipidemia, unspecified; I10 Essential (primary) hypertension; J45.909 Unspecified asthma, uncomplicated; Z79.899 Other long term (current) drug therapy
CPT/HCPCS: 36415; 80053; 81001; 83690; 83735; 85025; 87086; 96365; 96375; 99284-25; G0480; J2405; J3475; J7030

== ENCOUNTER 2020-08-19 17:42 | Emergency (ER) | payer OTHER ==
[~2020-08-19] VITALS: Ht 157.5 cm; Wt 65.8 kg
[2020-08-19] MEDS ORDERED: ONDA4ODT MM ×2 (18:03→20:29)
[2020-08-19 18:47] LABS: Alanine Aminotransfer (ALT/SGP 30 U/L (12-78); Albumin, Blood 2.3 g/dL (3.4-5.0); Albumin/Globulin Ratio 0.5 (0.8-1.8); Alk Phos 131 U/L (50-136); Anion Gap 7 mmol/L (6-16); Aspartate Aminotrans (AST/SGOT 42 U/L (12-37); Bilirubin, Total 2.6 mg/dL (0.1-1.0); Blood Urea Nitrogen 20 mg/dL (8-24); Bun/Creatinine Ratio 25.9 (12.0-20.0); CO2, Blood 22 mmol/L (21-32); Calcium, Blood 9.1 mg/dL (8.5-10.1); Chloride, Blood 109 mmol/L (98-108); Creatinine, Blood 0.77 mg/dL (0.40-1.00); Globulin, Blood 4.3 g/dL (2.2-4.0); Glomerular Filtration Rate >60 (60-); Glucose, Blood 88 mg/dL (70-99); Magnesium, Blood 1.2 mg/dL (1.6-2.4); Potassium, Blood 3.7 mmol/L (3.5-5.5); Sodium, Blood 138 mmol/L (136-145); Total Protein, Blood 6.6 g/dL (6.4-8.2)
[2020-08-19 19:14] LABS: BASOPHILS ABSOLUTE AUTO 0.06 K/mm3 (0.00-0.23); BASOPHILS PERCENT AUTO 1 % (0-2); EOSINOPHILS PERCENT AUTO 9 % (0-6); Hematocrit 24.5 % (33.0-51.0); Hemoglobin 8.3 g/dL (11.5-16.0); Mean Corpuscular HGB 34.3 pg (26.0-34.0); Mean Corpuscular HGB Conc 33.9 g/dL (31.5-36.5); Mean Corpuscular Volume 101 fL (80-100); Mean Platelet Volume 9.7 fL (9.1-12.4); Platelet Count 93 K/mm3 (150-400); RDW Coefficient Variation 14.8 % (11.7-14.2); RDW Standard Deviation 54.6 fL (35.1-46.3); Red Blood Cell Count 2.42 M/mm3 (3.80-5.20); White Blood Cell Count 5.37 K/mm3 (4.00-11.30)
[2020-08-19 19:19] LABS: IMMATURE GRAN ABSOLUTE AUTO 0.01 K/mm3 (0.00-0.10); IMMATURE GRAN PERCENT AUTO 0 % (0-1); LYMPHOCYTES ABSOLUTE AUTO 1.58 K/mm3 (0.84-5.20); LYMPHOCYTES PERCENT AUTO 29 % (21-46); MONOCYTES ABSOLUTE AUTO 0.55 K/mm3 (0.16-1.47); MONOCYTES PERCENT AUTO 10 % (4-13); NEUTROPHILS ABSOLUTE AUTO 2.67 K/mm3 (1.96-9.15); NEUTROPHILS PERCENT AUTO 50 % (41-73)
[2020-08-22] MEDS ORDERED: MULVITA PO (19:47)
[2020-08-22] MEDS ORDERED: OYSTER SHELL 51 EACH PO (19:48)
[2020-08-24] MEDS ORDERED: SULTRIDS PO (15:01)
[2020-08-24] MEDS ORDERED: OMEP20ER PO (15:03)
[2020-08-24] MEDS ORDERED: SUCR1 PO (15:04)
== END 2020-08-19 22:05 | disposition home or self-care (01) ==
LOC: ER 17:42
PROVIDERS: Emergency Medicine
DX: R11.2 Nausea with vomiting, unspecified (principal); I10 Essential (primary) hypertension; E78.5 Hyperlipidemia, unspecified; K21.9 Gastro-esophageal reflux disease without esophagitis
CPT/HCPCS: 80053; 83735; 85025; 96365; 96366; 96375; 99284-25; A9270; J2405; J3475; J7030

== ENCOUNTER 2020-08-22 14:57 | Inpatient (IN) | payer OTHER ==
[~2020-08-22] VITALS: Ht 157.5 cm; Wt 66.3 kg
== END 2020-08-24 15:25 | disposition home or self-care (01) | DRG 378 ==
LOC: ER 14:57 → MEDS 14:58 → PCU 14:58 → MEDS 21:22 → PCU 08-23 08:30
PROVIDERS: ADMIT Family Medicine
PROC: 0W3P8ZZ Control Bleeding in Gastrointestinal Tract, Via Natural or Artificial Opening Endoscopic (ICD-10-PCS; principal; 2020-08-23)
PROC: 30233N1 Transfusion of Nonautologous Red Blood Cells into Peripheral Vein, Percutaneous Approach (ICD-10-PCS; 2020-08-23)
PROC: 0W9G3ZX Drainage of Peritoneal Cavity, Percutaneous Approach, Diagnostic (ICD-10-PCS; 2020-08-24)
DX: K31.811 Angiodysplasia of stomach and duodenum with bleeding (principal); D62 Acute posthemorrhagic anemia; K76.6 Portal hypertension; N17.9 Acute kidney failure, unspecified; Z20.822 Contact with and (suspected) exposure to COVID-19; Z66 Do not resuscitate; K21.9 Gastro-esophageal reflux disease without esophagitis; K44.9 Diaphragmatic hernia without obstruction or gangrene; I12.9 Hypertensive chronic kidney disease with stage 1 through stage 4 chronic kidney disease, or unspecified chronic kidney disease; N18.30 Chronic kidney disease, stage 3 unspecified; J45.909 Unspecified asthma, uncomplicated; D69.6 Thrombocytopenia, unspecified; E87.6 Hypokalemia; K70.31 Alcoholic cirrhosis of liver with ascites; K31.89 Other diseases of stomach and duodenum; E78.5 Hyperlipidemia, unspecified; F41.9 Anxiety disorder, unspecified; Z98.890 Other specified postprocedural states; Z79.899 Other long term (current) drug therapy
CPT/HCPCS: 0241U; 36415; 36430; 49083; 74177; 80048; 80053; 80061; 82272; 82607; 82728; 82746; 83540; 83550; 83735; 85014; 85018; 85025; 85610; 85730; 86850; 86900; 86901; 86923; 89051; 93005; 93010; 96374; 96375; 96376; 99285-25; A9270; C9113; G0378; J0696; J2354; J2704; J3010; J3480; J7040; J7050; P9016; Q9967

== ENCOUNTER 2020-11-13 14:09 | Emergency (ER) | payer OTHER ==
[~2020-11-13] VITALS: Ht 157.5 cm; Wt 61.2 kg
[~2020-11-13 14:09] MED LIST changes: +MULVITA PO; +OYSTER SHELL 51 EACH PO; +SUCR1 PO; +SULTRIDS PO
[2020-11-13] MEDS ORDERED: Percocet 5-3251 EACH PO (16:54)
== END 2020-11-13 17:09 | disposition home or self-care (01) ==
LOC: ER 14:09
DX: I51.7 Cardiomegaly (principal); K21.9 Gastro-esophageal reflux disease without esophagitis
CPT/HCPCS: 71101; 99283-25

== ENCOUNTER 2021-01-29 06:15 | Emergency (ER) | payer OTHER ==
[~2021-01-29] VITALS: Ht 157.5 cm; Wt 61.2 kg
[~2021-01-29 06:15] MED LIST changes: +MECL25 PO; +Percocet 5-3251 EACH PO
[2021-01-29] MEDS ORDERED: Inderal 20 mg T20 MG PO (06:25)
[2021-01-29] MEDS ORDERED: FURO40 PO (06:26)
[2021-01-29] MEDS ORDERED: ALDACTONE100 MG PO (06:26)
[2021-01-29 07:17] LABS: BASOPHILS ABSOLUTE AUTO 0.07 K/mm3 (0.00-0.23); BASOPHILS PERCENT AUTO 1 % (0-2); EOSINOPHILS ABSOLUTE AUTO 0.47 K/mm3 (0.00-0.68); EOSINOPHILS PERCENT AUTO 9 % (0-6); Hemoglobin 10.8 g/dL (11.5-16.0); IMMATURE GRAN ABSOLUTE AUTO 0.02 K/mm3 (0.00-0.10); IMMATURE GRAN PERCENT AUTO 0 % (0-1); LYMPHOCYTES ABSOLUTE AUTO 1.21 K/mm3 (0.84-5.20); LYMPHOCYTES PERCENT AUTO 23 % (21-46); MONOCYTES ABSOLUTE AUTO 0.53 K/mm3 (0.16-1.47); MONOCYTES PERCENT AUTO 10 % (4-13); Mean Corpuscular HGB 34.2 pg (26.0-34.0); Mean Corpuscular HGB Conc 34.8 g/dL (31.5-36.5); Mean Corpuscular Volume 98 fL (80-100); Mean Platelet Volume 10.1 fL (9.1-12.4); NEUTROPHILS PERCENT AUTO 56 % (41-73); Platelet Count 105 K/mm3 (150-400); RDW Coefficient Variation 14.5 % (11.7-14.2); RDW Standard Deviation 52.9 fL (35.1-46.3); Red Blood Cell Count 3.16 M/mm3 (3.80-5.20)
[2021-01-29 07:36] LABS: Alanine Aminotransfer (ALT/SGP 34 U/L (12-78); Albumin, Blood 2.6 g/dL (3.4-5.0); Albumin/Globulin Ratio 0.6 (0.8-1.8); Alk Phos 137 U/L (50-136); Anion Gap 9 mmol/L (6-16); Aspartate Aminotrans (AST/SGOT 50 U/L (12-37); Bilirubin, Total 2.3 mg/dL (0.1-1.0); Blood Urea Nitrogen 20 mg/dL (8-24); Bun/Creatinine Ratio 21.3 (12.0-20.0); CO2, Blood 23 mmol/L (21-32); Calcium, Blood 9.3 mg/dL (8.5-10.1); Chloride, Blood 109 mmol/L (98-108); Creatinine, Blood 0.94 mg/dL (0.40-1.00); Globulin, Blood 4.7 g/dL (2.2-4.0); Glomerular Filtration Rate >60 (60-); Glucose, Blood 101 mg/dL (70-99); Potassium, Blood 3.9 mmol/L (3.5-5.5); Sodium, Blood 141 mmol/L (136-145); Total Protein, Blood 7.3 g/dL (6.4-8.2)
[2021-01-29] MEDS ORDERED: Kristalose20 GM PO (10:29)
== END 2021-01-29 10:57 | disposition home or self-care (01) ==
LOC: ER 06:15
PROVIDERS: Family Medicine
DX: R11.2 Nausea with vomiting, unspecified (principal); R19.7 Diarrhea, unspecified; K21.9 Gastro-esophageal reflux disease without esophagitis; J45.909 Unspecified asthma, uncomplicated; Z79.899 Other long term (current) drug therapy
CPT/HCPCS: 36415; 80053; 82140; 83690; 85025; 96374; 99284-25; C9113; J1940; J2543; J7120

== ENCOUNTER 2021-02-06 06:03 | Emergency (ER) | payer OTHER ==
[~2021-02-06] VITALS: Ht 157.5 cm; Wt 61.2 kg
[~2021-02-06 06:03] MED LIST changes: +ALDACTONE100 MG PO; +Inderal 20 mg T20 MG PO; +Kristalose20 GM PO
[2021-02-06 07:02] LABS: BASOPHILS ABSOLUTE AUTO 0.07 K/mm3 (0.00-0.23); BASOPHILS PERCENT AUTO 1 % (0-2); EOSINOPHILS ABSOLUTE AUTO 0.79 K/mm3 (0.00-0.68); EOSINOPHILS PERCENT AUTO 15 % (0-6); Hematocrit 27.5 % (33.0-51.0); Hemoglobin 9.6 g/dL (11.5-16.0); IMMATURE GRAN ABSOLUTE AUTO 0.01 K/mm3 (0.00-0.10); IMMATURE GRAN PERCENT AUTO 0 % (0-1); LYMPHOCYTES ABSOLUTE AUTO 1.35 K/mm3 (0.84-5.20); LYMPHOCYTES PERCENT AUTO 25 % (21-46); MONOCYTES ABSOLUTE AUTO 0.48 K/mm3 (0.16-1.47); MONOCYTES PERCENT AUTO 9 % (4-13); Mean Corpuscular HGB 34.9 pg (26.0-34.0); Mean Corpuscular HGB Conc 34.9 g/dL (31.5-36.5); Mean Corpuscular Volume 100 fL (80-100); Mean Platelet Volume 10.2 fL (9.1-12.4); NEUTROPHILS ABSOLUTE AUTO 2.75 K/mm3 (1.96-9.15); NEUTROPHILS PERCENT AUTO 50 % (41-73); Platelet Count 101 K/mm3 (150-400); RDW Coefficient Variation 14.9 % (11.7-14.2); RDW Standard Deviation 54.3 fL (35.1-46.3); Red Blood Cell Count 2.75 M/mm3 (3.80-5.20); White Blood Cell Count 5.45 K/mm3 (4.00-11.30)
[2021-02-06 07:08] LABS: Albumin, Blood 2.3 g/dL (3.4-5.0); Albumin/Globulin Ratio 0.5 (0.8-1.8); Bilirubin, Total 1.8 mg/dL (0.1-1.0); Calcium, Blood 8.8 mg/dL (8.5-10.1); Creatinine, Blood 1.09 mg/dL (0.40-1.00); Globulin, Blood 4.7 g/dL (2.2-4.0); Potassium, Blood 4.3 mmol/L (3.5-5.5)
[2021-02-06 07:57] LABS: Source, Urine Voided
[2021-02-06 08:00] LABS: Appearance, Urine Clear (Clear); Bilirubin, Urine Neg (Neg); Blood, Urine Neg (Neg); Color, Urine Yellow (P-Yellow); Glucose Qualitative, Urine Neg (Neg); Ketones, Urine Neg (Neg); Leukocyte Esterase, Urine Neg (Neg); Nitrite, Urine Neg (Neg); Protein, Urine Neg (Neg); Urobilinogen, Urine 2+ (Normal)
[2021-02-06] MEDS ORDERED: ONDA4ODT MM (09:32)
[2021-02-06] MEDS ORDERED: LOPE2C PO (09:32)
== END 2021-02-06 09:54 | disposition home or self-care (01) ==
LOC: ER 06:03
PROVIDERS: Emergency Medicine
DX: R19.7 Diarrhea, unspecified (principal); R11.2 Nausea with vomiting, unspecified; J45.909 Unspecified asthma, uncomplicated; K21.9 Gastro-esophageal reflux disease without esophagitis; I10 Essential (primary) hypertension; E78.5 Hyperlipidemia, unspecified; D64.9 Anemia, unspecified
CPT/HCPCS: 80053; 81003; 83690; 85025; 93005; 93010; 99284-25

== ENCOUNTER 2021-03-05 09:06 | Inpatient (IN) | payer OTHER ==
[~2021-03-05] VITALS: Ht 167.6 cm; Wt 61.2 kg
[~2021-03-05 09:06] MED LIST changes: +LOPE2C PO
[2021-03-05 09:43] LABS: BASOPHILS ABSOLUTE AUTO 0.09 K/mm3 (0.00-0.23); BASOPHILS PERCENT AUTO 1 % (0-2); EOSINOPHILS ABSOLUTE AUTO 0.58 K/mm3 (0.00-0.68); EOSINOPHILS PERCENT AUTO 8 % (0-6); Hemoglobin 12.4 g/dL (11.5-16.0); IMMATURE GRAN ABSOLUTE AUTO 0.02 K/mm3 (0.00-0.10); IMMATURE GRAN PERCENT AUTO 0 % (0-1); LYMPHOCYTES ABSOLUTE AUTO 1.34 K/mm3 (0.84-5.20); LYMPHOCYTES PERCENT AUTO 19 % (21-46); MONOCYTES PERCENT AUTO 7 % (4-13); Mean Corpuscular HGB 34.2 pg (26.0-34.0); Mean Corpuscular HGB Conc 34.4 g/dL (31.5-36.5); Mean Corpuscular Volume 99 fL (80-100); Mean Platelet Volume 10.1 fL (9.1-12.4); NEUTROPHILS ABSOLUTE AUTO 4.57 K/mm3 (1.96-9.15); NEUTROPHILS PERCENT AUTO 64 % (41-73); Platelet Count 141 K/mm3 (150-400); RDW Coefficient Variation 13.2 % (11.7-14.2); RDW Standard Deviation 48.1 fL (35.1-46.3); Red Blood Cell Count 3.63 M/mm3 (3.80-5.20)
[2021-03-05 09:55] LABS: U Amphetamine Screen Not Detected; U Barbituate Screen Not Detected; U Benzodiazapine Screen Not Detected; U Buprenorphine Screen Not Detected; U Cannabinoids Screen Not Detected; U Cocaine Screen Not Detected; U Methadone Screen Not Detected; U Methamphetamine Screen Not Detected; U Opiates Screen Not Detected; U Oxycodone Screen Not Detected; U Phencyclidine Screen Not Detected; U Propoxyphene Screen Not Detected
[2021-03-05 10:00] LABS: Alanine Aminotransfer (ALT/SGP 43 U/L (12-78); Albumin, Blood 2.8 g/dL (3.4-5.0); Albumin/Globulin Ratio 0.5 (0.8-1.8); Alk Phos 125 U/L (50-136); Anion Gap 7 mmol/L (6-16); Aspartate Aminotrans (AST/SGOT 54 U/L (12-37); Bilirubin, Total 2.6 mg/dL (0.1-1.0); Blood Urea Nitrogen 32 mg/dL (8-24); Bun/Creatinine Ratio 17.9 (12.0-20.0); CO2, Blood 22 mmol/L (21-32); Calcium, Blood 9.7 mg/dL (8.5-10.1); Chloride, Blood 106 mmol/L (98-108); Creatinine, Blood 1.79 mg/dL (0.40-1.00); Ethanol (Alcohol), Blood, Med <3 mg/dL; Globulin, Blood 5.5 g/dL (2.2-4.0); Glomerular Filtration Rate 28 (60-); Glucose, Blood 128 mg/dL (70-99); Potassium, Blood 4.6 mmol/L (3.5-5.5); Sodium, Blood 135 mmol/L (136-145); Total Protein, Blood 8.3 g/dL (6.4-8.2)
[2021-03-05 11:18] LABS: Source, Urine Clean Catch
[2021-03-05 11:29] LABS: Appearance, Urine Hazy (Clear); Bilirubin, Urine Neg (Neg); Blood, Urine 3+ (Neg); Color, Urine Yellow (P-Yellow); Glucose Qualitative, Urine Neg (Neg); Ketones, Urine Neg (Neg); Leukocyte Esterase, Urine Neg (Neg); Nitrite, Urine Neg (Neg); Protein, Urine Neg (Neg); Urobilinogen, Urine NORM (Normal)
[2021-03-05 11:44] LABS: Red Blood Cells, Urine 0-2 /hpf (0-2); Squamous Epithelial Cells Few /hpf (Few); White Blood Cells, Urine 0-2 /hpf (0-5)
[2021-03-05 11:45] LABS: Bacteria Not Seen /hpf
[2021-03-05 11:46] LABS: Hyaline Casts 0-2 /lpf (0-2)
[2021-03-05 15:17] LABS: SARS-Cov-2 (COVID-19) PCR, MMC NEGATIVE (NEGATIVE)
[2021-03-05] MEDS ORDERED: SUCR1 PO (15:27)
--- NOTE | 2021-03-05 16:05 | NUR ---
RECEIVED REPROT FROM ANGELINA RESENDIZ IN ED. PT TO ROOM AT APPROX 1450. PT RESPONDS TO VERBAL STIMULI, WAKES AND QUICKLY FALLS BACK ASLEEP. UNABLE TO ANSWER QUESTIONS. NO S/SX OF DISRESS NOTED. VSS. REPORT GIVEN TO ANGELINA RIVERA ASSUMING CARE OF PATIENT AT 1530.
--- NOTE | 2021-03-05 18:09 | NUR ---
PAtient is alert and oriented to self only. Admit from the ER groggy but more alert. Emulose enema placed for elevated ammonia. On room air. No signs of pain or distress. TRending LFTs, ammonia. BSSR to be given to fast food shift lead nurse.
[2021-03-06 03:52] LABS: BASOPHILS ABSOLUTE AUTO 0.08 K/mm3 (0.00-0.23); BASOPHILS PERCENT AUTO 1 % (0-2); EOSINOPHILS PERCENT AUTO 4 % (0-6); Hematocrit 30.8 % (33.0-51.0); Hemoglobin 10.5 g/dL (11.5-16.0); IMMATURE GRAN ABSOLUTE AUTO 0.01 K/mm3 (0.00-0.10); IMMATURE GRAN PERCENT AUTO 0 % (0-1); LYMPHOCYTES PERCENT AUTO 16 % (21-46); MONOCYTES PERCENT AUTO 9 % (4-13); Mean Corpuscular HGB 34.2 pg (26.0-34.0); Mean Corpuscular HGB Conc 34.1 g/dL (31.5-36.5); Mean Corpuscular Volume 100 fL (80-100); NEUTROPHILS ABSOLUTE AUTO 4.72 K/mm3 (1.96-9.15); NEUTROPHILS PERCENT AUTO 69 % (41-73); Platelet Count 108 K/mm3 (150-400); RDW Coefficient Variation 13.3 % (11.7-14.2); RDW Standard Deviation 49.1 fL (35.1-46.3); Red Blood Cell Count 3.07 M/mm3 (3.80-5.20); White Blood Cell Count 6.81 K/mm3 (4.00-11.30)
[2021-03-06 04:06] LABS: International Normalized Ratio 1.22; Prothrombin Time Results 12.6 Sec (9.7-11.5)
[2021-03-06 04:16] LABS: Albumin, Blood 2.6 g/dL (3.4-5.0); Albumin/Globulin Ratio 0.6 (0.8-1.8); Bilirubin, Total 2.7 mg/dL (0.1-1.0); Bun/Creatinine Ratio 22.1 (12.0-20.0); Calcium, Blood 9.3 mg/dL (8.5-10.1); Creatinine, Blood 1.31 mg/dL (0.40-1.00); Globulin, Blood 4.7 g/dL (2.2-4.0); Potassium, Blood 3.9 mmol/L (3.5-5.5); Total Protein, Blood 7.3 g/dL (6.4-8.2)
--- NOTE | 2021-03-06 06:02 | NUR ---
SHIFT SUMMARY PT ALERT. ORIENTED OT SELF AT BEGINNING OF SHIFT. NOW BEGINNING TO FOLLOW SIMPLE COMMANDS. PT PICKING AT NAILS, PULLING AT LINES, CORDS. SP02>90% ON RA. TELEMETRY READS NSR, HR 80'S. PT INCONTINENT URINE X3, USED BED BERNARD X1. PT RECEIVED LACTOLOSE ENEMA THIS SHIFT. MULTIPLE INCONTINENT BMS. FLUIDS IN FUSING PER EMAR. PT SLEPT PART OF NIGHT. CALL LIGHT IN REACH.
--- NOTE | 2021-03-06 14:54 | NUR ---
PT TRANSFERRED TO MEDICAL FLOOR AT 1445. PT IS ALERT TO SELF AND PLACE, BUT CONFUSED REGARDING SITUATION. REORIENTED SEVERAL TIMES. PT WAS IN RESTRAINT THIS AM UNTIL 1200. D/C RESTRAINTS WHEN TELE WAS REMOVED. PT DID NOT PULL AT IV. PT WAS STILL IMPULSVE WHEN NEEDING TO USE THE BATHROOM SETTING OFF BED ALARM SEVERAL TIMES. BEDPAN USED FOR SEVERAL BMS. MOSTLY CONTINENT. WAS SR ON TELE PRIOR TO D/C. VSS ON RA. BSS DONE AND PT WAS ADVANCED TO CLEAR LIQUIDS. NS RUNNING AT 125ML/HR. IV IN RIGHT WRIST. PT TOLERATED PO LACUTULOSE.
--- NOTE | 2021-03-06 16:06 | NUR ---
SHIFT SUMMARY PT IS AOX3 AND FORGETFUL. PT DENIES PAIN, N/V, SOB. PT TRANSFERRED TO MEDICAL UNIT FROM PCU TODAY. PT IS ONE ASSIST WITH FWW TO [facility]. PT HAD DIARRHEA THIS SHIFT. PT HAD A VISITOR THIS JULIO C. PT APPETITE IS MODERATE WITH CLEAR LIQUIDS. PT IS IN BED, CALL LIGHT IN REACH, ALARM ON. THIS RN WILL CONTINUE TO MONITOR PT STATUS UNTIL SHIFT CHANGE TO NIGHT RN.
--- NOTE | 2021-03-07 03:56 | NUR ---
Patient is alert, pleasant and cooperative with care. only exception is at the time her bowels begin to move after a dose of lactulose. As expected, they are clear yellow,brown liquid, and wake her easily out of sleep. No complaints of discomfort, except for mild abdominal discomfort which is tolerable to her. Discomfort was mentioned to evening MD. no new orders
[2021-03-07 05:53] LABS: Hematocrit 27.4 % (33.0-51.0); Hemoglobin 9.1 g/dL (11.5-16.0); Mean Corpuscular HGB 34.2 pg (26.0-34.0); Mean Corpuscular HGB Conc 33.2 g/dL (31.5-36.5); Mean Corpuscular Volume 103 fL (80-100); Mean Platelet Volume 9.8 fL (9.1-12.4); Platelet Count 71 K/mm3 (150-400); RDW Coefficient Variation 13.4 % (11.7-14.2); RDW Standard Deviation 50.7 fL (35.1-46.3); Red Blood Cell Count 2.66 M/mm3 (3.80-5.20); White Blood Cell Count 3.94 K/mm3 (4.00-11.30)
[2021-03-07 06:14] LABS: Bun/Creatinine Ratio 21.4 (12.0-20.0); Calcium, Blood 8.7 mg/dL (8.5-10.1); Creatinine, Blood 1.03 mg/dL (0.40-1.00); Potassium, Blood 3.6 mmol/L (3.5-5.5)
--- NOTE | 2021-03-07 16:02 | NUR ---
SHIFT SUMMARY PT IS AOX4 AND PLEASANT. PT DENIES PAIN, N/V, SOB. PT IS SBA TO BATHROOM FOR TRANSFERS. PT CONTINUES TO HAVE DIARRHEA DUE TO LACTULOSE. PT HAD A VISITOR THIS JULIO C. PT AMBULATED THE HALLS X2 AND SAT IN CHAIR FOR MEALS. PT APPETITE IS GOOD ON REGULAR DIET TODAY. PT VSS. PT IS IN BED, CALL LIGHT IN REACH, LOW POSITION.
--- NOTE | 2021-03-08 02:47 | NUR ---
INCOME AUDITOR SUMMARY HAS BEEN RESTING QUIETLY WITH FEW INTERRUPTIONS SINCE HS. UP TO BR AD LILLIAN. NO C/O VOICED. CONTNUES TO RECEIVE LACTULOSE TO LOWER AMONIA LEVELS DUE TO LIVER CIRRHOSIS. SEE LABS FOR DETAILS. CALL LIGHT IN REACH.
[2021-03-08 06:23] LABS: Bun/Creatinine Ratio 18.3 (12.0-20.0); Calcium, Blood 8.6 mg/dL (8.5-10.1); Creatinine, Blood 0.98 mg/dL (0.40-1.00); Potassium, Blood 4.1 mmol/L (3.5-5.5)
--- NOTE | 2021-03-08 08:17 | NUR ---
PT RECIEVED IN BED, IN NO DISTRESS, AM MEDS ADMINISTERED, REFUSED LACTULOSE DESPITE EDUCATED ON THE NEED TO TAKE IT. CALL LIGHT IN PLACE DENIED PAIN.
[2021-03-08 13:24] LABS: Bun/Creatinine Ratio 17.6 (12.0-20.0); Calcium, Blood 8.4 mg/dL (8.5-10.1); Creatinine, Blood 0.97 mg/dL (0.40-1.00); Potassium, Blood 3.9 mmol/L (3.5-5.5)
[2021-03-08] MEDS ORDERED: LACT10SY PO (15:00)
--- NOTE | 2021-03-08 15:26 | NUR ---
PT AAOX3,VITALS REMAINED STABLE, ASSESSMENT SAME, AMBULATORY AND CONTINENT OF B/B.ADEQUATE APPETITE AND TOLERATES FLUIDS.DENIED PAIN,D/C HOME. D/C INSTRUCTIONS GIVEN AND VERBALIZES UNDERSTANDING,LEFT THE FACILITY VIA W/C ACCOMPANIED BY STAFF TO FAMILY WAITING IN PARKING LOT.
== END 2021-03-08 15:19 | disposition home or self-care (01) | DRG 442 ==
LOC: ER 09:06 → PCU 12:06 → MEDS 03-06 14:39
PROVIDERS: Family Medicine; Internal Medicine; Nurse Practitioner Acute Care; Physician Assistant; ADMIT Family Medicine
DX: K72.00 Acute and subacute hepatic failure without coma (principal); N17.9 Acute kidney failure, unspecified; D61.818 Other pancytopenia; K21.9 Gastro-esophageal reflux disease without esophagitis; J45.909 Unspecified asthma, uncomplicated; K70.30 Alcoholic cirrhosis of liver without ascites; E86.0 Dehydration; Z20.822 Contact with and (suspected) exposure to COVID-19; E78.5 Hyperlipidemia, unspecified; F41.9 Anxiety disorder, unspecified; I12.9 Hypertensive chronic kidney disease with stage 1 through stage 4 chronic kidney disease, or unspecified chronic kidney disease; N18.30 Chronic kidney disease, stage 3 unspecified; Z98.890 Other specified postprocedural states
CPT/HCPCS: 36415; 70450; 71045; 80048; 80053; 81001; 82140; 82550; 82947; 83605; 83735; 85025; 85027; 85610; 93005; 93010; 96372; 96376; 99285-25; A9270; C9113; G0378; G0480; J1650; J2060; J7030; P9612; U0004

== ENCOUNTER 2021-03-17 08:55 | Inpatient (IN) | payer OTHER ==
[~2021-03-17] VITALS: Ht 162.6 cm; Wt 64.1 kg
[~2021-03-17 08:55] MED LIST changes: +LACT10SY PO
[2021-03-17 10:09] LABS: BASOPHILS ABSOLUTE AUTO 0.04 K/mm3 (0.00-0.23); BASOPHILS PERCENT AUTO 1 % (0-2); EOSINOPHILS ABSOLUTE AUTO 0.13 K/mm3 (0.00-0.68); EOSINOPHILS PERCENT AUTO 3 % (0-6); Hematocrit 27.9 % (33.0-51.0); Hemoglobin 9.5 g/dL (11.5-16.0); IMMATURE GRAN ABSOLUTE AUTO 0.03 K/mm3 (0.00-0.10); IMMATURE GRAN PERCENT AUTO 1 % (0-1); LYMPHOCYTES ABSOLUTE AUTO 1.14 K/mm3 (0.84-5.20); LYMPHOCYTES PERCENT AUTO 24 % (21-46); MONOCYTES PERCENT AUTO 6 % (4-13); Mean Corpuscular HGB 34.5 pg (26.0-34.0); Mean Corpuscular HGB Conc 34.1 g/dL (31.5-36.5); Mean Corpuscular Volume 102 fL (80-100); Mean Platelet Volume 9.4 fL (9.1-12.4); NEUTROPHILS ABSOLUTE AUTO 3.08 K/mm3 (1.96-9.15); NEUTROPHILS PERCENT AUTO 65 % (41-73); Platelet Count 110 K/mm3 (150-400); RDW Coefficient Variation 14.7 % (11.7-14.2); RDW Standard Deviation 51.2 fL (35.1-46.3); Red Blood Cell Count 2.75 M/mm3 (3.80-5.20); White Blood Cell Count 4.72 K/mm3 (4.00-11.30)
[2021-03-17 10:17] LABS: International Normalized Ratio 1.27; Prothrombin Time Results 13.1 Sec (9.7-11.5)
[2021-03-17 10:20] LABS: Alanine Aminotransfer (ALT/SGP 34 U/L (12-78); Albumin, Blood 2.2 g/dL (3.4-5.0); Albumin/Globulin Ratio 0.5 (0.8-1.8); Alk Phos 172 U/L (50-136); Anion Gap 6 mmol/L (6-16); Aspartate Aminotrans (AST/SGOT 54 U/L (12-37); Bilirubin, Total 1.3 mg/dL (0.1-1.0); Blood Urea Nitrogen 33 mg/dL (8-24); Bun/Creatinine Ratio 21.7 (12.0-20.0); CO2, Blood 21 mmol/L (21-32); Calcium, Blood 8.6 mg/dL (8.5-10.1); Chloride, Blood 112 mmol/L (98-108); Creatinine, Blood 1.52 mg/dL (0.40-1.00); Ethanol (Alcohol), Blood, Med <3 mg/dL; Globulin, Blood 4.7 g/dL (2.2-4.0); Glomerular Filtration Rate 34 (60-); Glucose, Blood 95 mg/dL (70-99); Potassium, Blood 5.1 mmol/L (3.5-5.5); Sodium, Blood 139 mmol/L (136-145); Total Protein, Blood 6.9 g/dL (6.4-8.2)
[2021-03-17 10:23] LABS: Source, Urine Catheter
[2021-03-17 10:27] LABS: Appearance, Urine Clear (Clear); Bilirubin, Urine Neg (Neg); Blood, Urine Neg (Neg); Color, Urine Yellow (P-Yellow); Glucose Qualitative, Urine Neg (Neg); Ketones, Urine Neg (Neg); Leukocyte Esterase, Urine Neg (Neg); Nitrite, Urine Neg (Neg); Protein, Urine Neg (Neg); Urobilinogen, Urine NORM (Normal)
[2021-03-17 10:44] LABS: SARS-Cov-2 (COVID-19) PCR, MMC NEGATIVE (NEGATIVE)
[2021-03-17 11:03] LABS: U Amphetamine Screen Not Detected; U Barbituate Screen Not Detected; U Benzodiazapine Screen Not Detected; U Buprenorphine Screen Not Detected; U Cannabinoids Screen Not Detected; U Cocaine Screen Not Detected; U Methadone Screen Not Detected; U Methamphetamine Screen Not Detected; U Opiates Screen Not Detected; U Oxycodone Screen Not Detected; U Phencyclidine Screen Not Detected; U Propoxyphene Screen Not Detected
--- NOTE | 2021-03-17 18:42 | NUR ---
PT ADMITTED IN RM [phone],AAOX4,NO ACUTE DISTRESS ,ORIENTED TO ROOM AND CALL LIGHT, DENIES PAIN, DINNER CALLED AND PRESENTLY HAVE A TRAY.VITALS WNL,CALL LIGHT WITHIN REACH.
--- NOTE | 2021-03-18 03:46 | NUR ---
SHIFT SUMMARY A&O X 3. PT ADMITTED FOR ENCEPHALOPATHY, WHICH SEEMS TO BE CLEARNING UP WITH LACTULOSE. PT IS SLIGHTLY INCONTINENT, BUT IS ABLE TO GET UP TO USE THE RESTROOM. SHE WALKS INDEPENDENTLY TO THE BATHROOM. NO ACUTE DISTRESS, CALL LIGHT WITHIN REACH. MEDICATED PER EMAR.
[2021-03-18 04:49] LABS: International Normalized Ratio 1.28; Prothrombin Time Results 13.2 Sec (9.7-11.5)
[2021-03-18 04:50] LABS: Bun/Creatinine Ratio 22.8 (12.0-20.0); Calcium, Blood 9.1 mg/dL (8.5-10.1); Creatinine, Blood 1.67 mg/dL (0.40-1.00); Magnesium, Blood 1.5 mg/dL (1.6-2.4); Potassium, Blood 4.5 mmol/L (3.5-5.5)
--- NOTE | 2021-03-18 18:01 | NUR ---
PT AAOX3, MINIMAL ASSIST WITH ADL'S, NO ACUTE DISTRESS NOTED, VISITED WITH FAMILY, IV PATENT, INFUSING, DENIED PAIN CONT TO HAVE BM DUE TO LACTULOSE GIVEN FOR INCREASED AMMONIA LEVELS.CALL LIGHT WITHIN REACH,WILL CONTINUE TO MONITOR.
--- NOTE | 2021-03-19 02:59 | NUR ---
SHIFT SUMMARY A&O X3. PT IS PLEASANT BUT SEEMS A LITTLE CONFUSED AT TIMES. HAD AN ISSUE WITH HER IV GETTING PULLED ON EARLIER. IT DID NOT COME OUT, IT JUST BLED. IV IS STILL INTACT AND FLUSHED WITH 10 ML NS. PT DENIES PAIN. PT CONTINUES WITH SOME DIARRHEA, LIKELY FROM THE LACTULOSE. CALL LIGHT WITHIN REACH. WILL CONTINUE TO MONITOR.
[2021-03-19 05:19] LABS: Bun/Creatinine Ratio 26.4 (12.0-20.0); Calcium, Blood 9.3 mg/dL (8.5-10.1); Creatinine, Blood 1.25 mg/dL (0.40-1.00)
--- NOTE | 2021-03-19 14:29 | NUR ---
PT RECIEVED THIS MORNING 07 WITH AMS, REFUSED AM MEDS, CONTINUE TO CRAWL OUT OF BED, SO CONFUSED AND DISORIENTED, VITALS STABLE, AMMONIA LEVELS >200 DR COX NOTIFIED AND NEW ORDERS FOR LACTULOSE IN PLACE. 09 DR COX ORDERED RESTRIANT FOR PT SAFETY SHE CRAWL OUT OF BED, UNABLE TO BEAR WEIGHT BUT SHE STILL TRYING TO WALK, AND KEPT SAYING"I WANT TO GO, I WANT TO GO'. STAFFS INTERVENED THE NURSE CALLED FOR HELPED BUT PT UNABLE TO STAY IN CHAIR OR BED. WHILE ON VEST RESTRIANT, PT PULLED OUT HER IV ON LT AC, PULLED HER NAME BAND,AND CONTINUE TOMOVE HER LEGS ON THE SIDE RAILS, REDIRECTED WITH LITTLE EFFECT. PT TOOK MEDICATIONS LATER , CALL LIGHT IN PLACE AND MONITORING CONTINUES.PRESENTLY VISITING WITH FAMILY. ,
--- NOTE | 2021-03-19 19:44 | NUR ---
PT CONTINUE ON RESTRAINT, ASSISTED WITH CARE NEEDED, CHECKED REGULARLY FOR PROPER PLACEMENT, MORE ALERT THIS EVENING TO SELF, CALL LIGHT IN PLACE , WILL CONTIUE TO MONITOR.
--- NOTE | 2021-03-19 22:43 | NUR ---
PT REMAINS HIGH FALL RISK, FILIBERTO VEST IN USE FOR SAFETY. CALL LIGHT IN REACH.
--- NOTE | 2021-03-20 03:18 | NUR ---
SHIFT SUMMARY PT CONTINUES TO BE IN A FILIBERTO VEST, SHE IS TOLERATING IT WELL. PT STS THAT SHE HAS 8/10 BACK PAIN. MEDICATED WITH TYLENOL PER DR SCRUGGS. PT HAS BEEN SLEEPING MOST OF THE NIGHT. ASKED THE PT IF SHE WANTED HER TV ON AND SHE DECLINED. CALL LIGHT WITHIN REACH AND WILL CONTINUE TO MONITOR.
[2021-03-20 04:59] LABS: Albumin, Blood 1.9 g/dL (3.4-5.0); Anion Gap 6 mmol/L (6-16); Blood Urea Nitrogen 31 mg/dL (8-24); CO2, Blood 21 mmol/L (21-32); Chloride, Blood 116 mmol/L (98-108); Creatinine, Blood 1.15 mg/dL (0.40-1.00); Glomerular Filtration Rate 47 (60-); Glucose, Blood 92 mg/dL (70-99); Magnesium, Blood 1.4 mg/dL (1.6-2.4); Phosphorus, Blood 2.6 mg/dL (2.5-4.9); Potassium, Blood 4.5 mmol/L (3.5-5.5); Sodium, Blood 143 mmol/L (136-145)
--- NOTE | 2021-03-20 08:14 | NUR ---
PT RECIEVED IN BED AAOX3, COOPERATIVE WITH SAFETY PRECAUTIONS,VITALS WNL, ABDO DISTENDED, AMMONIA LEVELS DECREASED, RETRAINT D/C'D. UPDATED.AM MEDS GIVEN,CALL LIGHT WITHIN RANGE WILL CONT TO MONITOR.
--- NOTE | 2021-03-20 18:15 | NUR ---
PT REMAINED STABLE, COOPERATIVE WITH CARE AND MEDICATIONS,HAD A SHOWER, LINENS CHANGED AND GOWN,VISITED WITH FAMILY, REFUSED DINNER FAMILY BROUGHT IN SOME FOOD.NO DISTRESS NOTED, CALL LIGHT IN PLACE.
[2021-03-21 04:47] LABS: Bun/Creatinine Ratio 27.1 (12.0-20.0); Calcium, Blood 8.8 mg/dL (8.5-10.1); Creatinine, Blood 0.96 mg/dL (0.40-1.00); Magnesium, Blood 1.5 mg/dL (1.6-2.4); Potassium, Blood 4.6 mmol/L (3.5-5.5)
--- NOTE | 2021-03-21 05:29 | NUR ---
SHIFT SUMMARY PT IS A 65 Y/O FEMALE, ADMITTED FOR HEPATIC ENCEPHALOPATHY. SHE IS A&O X 3, SBA TO THE [facility] [place]. PT REPORTED MULTIPLE EPISODES OF DIARRHEA R/T LACTULOSE. SHE WAS MEDICATED ONCE FOR BACK PAIN WITH PRN TYLENOL. NO C/O NAUSEA OR SOB. VITAL SIGNS STABLE. NO OTHER ACUTE CHANGES IN PT CONDITION NOTED. WILL CONTINUE TO MONITOR AND TREAT PER EMAR UNTIL HAND OFF TO DAY SHIFT RN.
--- NOTE | 2021-03-21 11:46 | NUR ---
PT AAOX3, RECIEVED IN BED THIS MORNING, VITALS STABLE, COOPERATIVE WITH CARE, ASSISTED TO BR WITH STANDBY ASSIST NEEDED, TOLERATED AM MEDS AND FAIR APPETITE FOR BREAKFAST.PT ENCOURAGED TO USE CALL LIGHT.CALL LIGHT WITHIN REACH, WILL CONTINUE TO MONITOR.
[2021-03-21] MEDS ORDERED: RIFA550T2 PO (16:20)
--- NOTE | 2021-03-21 17:47 | NUR ---
PT D/C HOME, NO ACUTE DISTRESS NOTED, VITALS STABLE, AMMONIA LEVEL RECHECKED : 80. D/C INSTRUCTIONS GIVEN INCLUDING MEDICATION COMPLIANCE WITH LACTULOSE.PT VERBALISED UNDERSTANDING, LEFT THE UNIT VIA W/C ACCOMPANIED BY TO FAMILY IN PARKING LOT.
--- NOTE | 2021-03-25 12:10 | NUR ---
Received referral from nurse family day carer (Leslie Argueta) Thursday- 03/22/2021. Patient was admitted to [facility] on 03/17/2021 due to acute hepatic encephalopathy. Patient discharged 03/21/2021 with orders for home health. Per referral, patient elected [facility]. As patient discharged several days ago, this director underwriter sales did not contact patient at home to confirm the above. All supporting documentation for referral (face sheet, face to face, med list, H&P, discharge summary, and most recent PT notes) was sent to [facility] for review. No further interventions required. Orin Gonzalez Referral Liaison
== END 2021-03-21 17:15 | disposition home health service (06) | DRG 433 ==
LOC: ER 08:55 → ERHOLD 11:54 → MEDS 18:16
PROVIDERS: Emergency Medicine; ADMIT Internal Medicine
DX: K70.40 Alcoholic hepatic failure without coma (principal); D61.818 Other pancytopenia; Z66 Do not resuscitate; Z20.822 Contact with and (suspected) exposure to COVID-19; Z23 Encounter for immunization; I12.9 Hypertensive chronic kidney disease with stage 1 through stage 4 chronic kidney disease, or unspecified chronic kidney disease; N18.30 Chronic kidney disease, stage 3 unspecified; K21.9 Gastro-esophageal reflux disease without esophagitis; J45.909 Unspecified asthma, uncomplicated; K70.30 Alcoholic cirrhosis of liver without ascites; D63.1 Anemia in chronic kidney disease; E86.0 Dehydration; E83.42 Hypomagnesemia; Z91.14 Patient's other noncompliance with medication regimen; E78.5 Hyperlipidemia, unspecified; F41.9 Anxiety disorder, unspecified; Z98.890 Other specified postprocedural states; Z79.899 Other long term (current) drug therapy
CPT/HCPCS: 36415; 51702; 70450; 71045; 80048; 80053; 80069; 81003; 82140; 83605; 83735; 85025; 85610; 90686; 93005; 93010; 97116; 97161; 99285-25; A9270; G0008; G0480; J3475; J7030; J7050; U0004

== ENCOUNTER 2021-03-29 22:17 | Inpatient (IN) | payer OTHER ==
[~2021-03-29] VITALS: Ht 154.9 cm; Wt 61.1 kg
[~2021-03-29 22:17] MED LIST changes: +RIFA550T2 PO
[2021-03-29 23:33] LABS: BASOPHILS ABSOLUTE AUTO 0.04 K/mm3 (0.00-0.23); BASOPHILS PERCENT AUTO 1 % (0-2); EOSINOPHILS ABSOLUTE AUTO 0.32 K/mm3 (0.00-0.68); EOSINOPHILS PERCENT AUTO 7 % (0-6); Hemoglobin 8.7 g/dL (11.5-16.0); IMMATURE GRAN ABSOLUTE AUTO 0.02 K/mm3 (0.00-0.10); IMMATURE GRAN PERCENT AUTO 0 % (0-1); LYMPHOCYTES ABSOLUTE AUTO 1.57 K/mm3 (0.84-5.20); LYMPHOCYTES PERCENT AUTO 35 % (21-46); MONOCYTES PERCENT AUTO 9 % (4-13); Mean Corpuscular HGB 34.9 pg (26.0-34.0); Mean Corpuscular HGB Conc 33.5 g/dL (31.5-36.5); Mean Corpuscular Volume 104 fL (80-100); Mean Platelet Volume 9.4 fL (9.1-12.4); NEUTROPHILS ABSOLUTE AUTO 2.19 K/mm3 (1.96-9.15); NEUTROPHILS PERCENT AUTO 48 % (41-73); Platelet Count 138 K/mm3 (150-400); RDW Coefficient Variation 17.6 % (11.7-14.2); RDW Standard Deviation 66.6 fL (35.1-46.3); Red Blood Cell Count 2.49 M/mm3 (3.80-5.20); White Blood Cell Count 4.54 K/mm3 (4.00-11.30)
[2021-03-29 23:46] LABS: Albumin, Blood 2.3 g/dL (3.4-5.0); Albumin/Globulin Ratio 0.5 (0.8-1.8); Bilirubin, Total 1.5 mg/dL (0.1-1.0); Calcium, Blood 8.7 mg/dL (8.5-10.1); Creatinine, Blood 1.62 mg/dL (0.40-1.00); Potassium, Blood 4.8 mmol/L (3.5-5.5); Total Protein, Blood 7.3 g/dL (6.4-8.2)
[2021-03-30 01:55] LABS: Source, Urine Clean Catch
[2021-03-30 01:58] LABS: Bilirubin, Urine Neg (Neg); Blood, Urine 1+ (Neg); Glucose Qualitative, Urine Neg (Neg); Ketones, Urine Neg (Neg); Leukocyte Esterase, Urine 3+ (Neg); Nitrite, Urine Neg (Neg); Protein, Urine 1+ (Neg); Specific Gravity, Urine 1.015 (1.003-1.022); Urobilinogen, Urine NORM (Normal)
[2021-03-30 02:01] LABS: Appearance, Urine Clear (Clear); Color, Urine Yellow (P-Yellow)
[2021-03-30 02:03] LABS: Bacteria Many /hpf; Hyaline Casts 0-2 /lpf (0-2); Red Blood Cells, Urine 0-2 /hpf (0-2); Squamous Epithelial Cells Few /hpf (Few)
[2021-03-30 02:09] LABS: U Amphetamine Screen Not Detected; U Barbituate Screen Not Detected; U Benzodiazapine Screen Not Detected; U Buprenorphine Screen Not Detected; U Cannabinoids Screen Not Detected; U Cocaine Screen Not Detected; U Methadone Screen Not Detected; U Methamphetamine Screen Not Detected; U Opiates Screen Not Detected; U Oxycodone Screen Not Detected; U Phencyclidine Screen Not Detected; U Propoxyphene Screen Not Detected
[2021-03-30 03:20] LABS: Influenza A, PCR NEGATIVE (NEGATIVE); Influenza B, PCR NEGATIVE (NEGATIVE); Resp Syncytial Virus, PCR NEGATIVE (NEGATIVE); SARS-Cov-2 (COVID-19) PCR, MMC NEGATIVE (NEGATIVE)
--- NOTE | 2021-03-30 06:05 | NUR ---
PATIENT ADMITTED FROM ED, ALERT TO SELF ONLY UNAWARE OF TIME, PLACE AND/OR SITUATION, ANSWERS SOME QUESTIONS BUT NOTED ALL ANSWERS ARE NO, WILL DEFER ADMISSION COMPLETION AND CONSENTS UNTIL COMES TODAY, PATIENT IS A SBA TO BEDSIDE COMMODE STEADY GAIT, CONFUSION REPETITVE CONCERNS AND FORGETFUL WITH SHORT TERM MEMORY. PATIENT HAD ASKED TO GO TO THE BATHROOM, AFTER COMPLETION FORGOT SHE HAD ALREADY USED THE COMMODE AND WANTED TO GO AGAIN, ONCE ON COMMODE STATED, OH YEAH NEVERMIND. SKIN IS INTACT, CONTINENT, REORIENTATION PROVIDED WITH EACH ENCOUNTER, USES CALL LIGHT BUT WAXES AND WANES WITH REMEMBERING TO PUSH BUTTON PRIOR TO GETTING OOB. WCTM.
[2021-03-30 07:13] LABS: BASOPHILS ABSOLUTE AUTO 0.07 K/mm3 (0.00-0.23); BASOPHILS PERCENT AUTO 1 % (0-2); EOSINOPHILS ABSOLUTE AUTO 0.34 K/mm3 (0.00-0.68); EOSINOPHILS PERCENT AUTO 6 % (0-6); Hematocrit 25.7 % (33.0-51.0); Hemoglobin 8.5 g/dL (11.5-16.0); IMMATURE GRAN ABSOLUTE AUTO 0.02 K/mm3 (0.00-0.10); IMMATURE GRAN PERCENT AUTO 0 % (0-1); LYMPHOCYTES ABSOLUTE AUTO 1.61 K/mm3 (0.84-5.20); LYMPHOCYTES PERCENT AUTO 30 % (21-46); MONOCYTES ABSOLUTE AUTO 0.48 K/mm3 (0.16-1.47); MONOCYTES PERCENT AUTO 9 % (4-13); Mean Corpuscular HGB Conc 33.1 g/dL (31.5-36.5); Mean Corpuscular Volume 106 fL (80-100); Mean Platelet Volume 9.6 fL (9.1-12.4); NEUTROPHILS PERCENT AUTO 53 % (41-73); Platelet Count 145 K/mm3 (150-400); RDW Coefficient Variation 17.9 % (11.7-14.2); RDW Standard Deviation 67.2 fL (35.1-46.3); Red Blood Cell Count 2.43 M/mm3 (3.80-5.20); White Blood Cell Count 5.32 K/mm3 (4.00-11.30)
[2021-03-30 07:33] LABS: Albumin, Blood 2.3 g/dL (3.4-5.0); Albumin/Globulin Ratio 0.5 (0.8-1.8); Bilirubin, Total 1.8 mg/dL (0.1-1.0); Bun/Creatinine Ratio 21.7 (12.0-20.0); Calcium, Blood 8.8 mg/dL (8.5-10.1); Creatinine, Blood 1.57 mg/dL (0.40-1.00); Globulin, Blood 4.3 g/dL (2.2-4.0); Magnesium, Blood 1.8 mg/dL (1.6-2.4); Potassium, Blood 4.2 mmol/L (3.5-5.5); Total Protein, Blood 6.6 g/dL (6.4-8.2)
--- NOTE | 2021-03-30 17:51 | NUR ---
SHIFT SUMMARY; ASSUMED CARE AT 0700. A/A/OX2 GRADUALLY IMPROVING DURING SHIFT TO A/A/0X3 WITH INTERMITANT CONFUSION AND IMPULSIVENESS. BILATERAL WRIST RESTRAINTS IN PLACE TO PROTECT LINES AND FOR PT SAFTEY. IV FLUIDS INFUSING AT 75ML/HR. EVALUATED BY SPEECH THERAPY TODAY. DIET STARTED, EATING AND DRINKING WITHOUT DIFFICULTY. UP TO BEDSIDE COMMODE SERVAL TIMES DURING SHIFT. USES CALL LIGHT APPROPRIATLY. REPOSITIONS SELF IN BED NEEDED. VSS, WILL CONTINUE TO MONITOR AND TREAT UNTIL CHANGE OF SHIFT.
[2021-03-31 05:04] LABS: BASOPHILS ABSOLUTE AUTO 0.04 K/mm3 (0.00-0.23); BASOPHILS PERCENT AUTO 1 % (0-2); EOSINOPHILS ABSOLUTE AUTO 0.25 K/mm3 (0.00-0.68); EOSINOPHILS PERCENT AUTO 6 % (0-6); Hematocrit 21.8 % (33.0-51.0); Hemoglobin 7.2 g/dL (11.5-16.0); IMMATURE GRAN ABSOLUTE AUTO 0.01 K/mm3 (0.00-0.10); IMMATURE GRAN PERCENT AUTO 0 % (0-1); LYMPHOCYTES ABSOLUTE AUTO 1.43 K/mm3 (0.84-5.20); LYMPHOCYTES PERCENT AUTO 35 % (21-46); MONOCYTES ABSOLUTE AUTO 0.37 K/mm3 (0.16-1.47); MONOCYTES PERCENT AUTO 9 % (4-13); Mean Corpuscular HGB 35.3 pg (26.0-34.0); Mean Corpuscular Volume 107 fL (80-100); Mean Platelet Volume 9.5 fL (9.1-12.4); NEUTROPHILS ABSOLUTE AUTO 1.99 K/mm3 (1.96-9.15); NEUTROPHILS PERCENT AUTO 49 % (41-73); Platelet Count 105 K/mm3 (150-400); RDW Coefficient Variation 18.4 % (11.7-14.2); Red Blood Cell Count 2.04 M/mm3 (3.80-5.20); White Blood Cell Count 4.09 K/mm3 (4.00-11.30)
[2021-03-31 05:50] LABS: Bun/Creatinine Ratio 26.1 (12.0-20.0); Calcium, Blood 8.7 mg/dL (8.5-10.1); Creatinine, Blood 1.19 mg/dL (0.40-1.00); Percent Saturation 20.1 % (15.0-50.0); Potassium, Blood 4.4 mmol/L (3.5-5.5)
--- NOTE | 2021-03-31 05:53 | NUR ---
SHIFT SUMMARY: PT HAD UNEVENTFUL SHIFT. NO C/O PAIN OR DISCOMFORT, ABLE TO VERBALIZE NEEDS, ALERT AND ORIENTED BUT FORGETFUL AND WILL TRY TO GET OOB WITHOUT CALLING FOR ASSISTANCE, GAIT WEAK. BED ALARM ACTIVIATED AND WRIST RESTRAINTS IN PLACE. SR ON TELE, VSS, CONTINENT BOWEL AND BLADDER. BED LOCKED AND LOW, CALL CARDENAS IN REACH. ANGELINA LESTER
[2021-03-31 11:37] LABS: Hemoglobin 8.1 g/dL (11.5-16.0)
[2021-03-31] MEDS ORDERED: CEFD300 PO (12:14)
--- NOTE | 2021-03-31 13:18 | NUR ---
PT TO BE DISCHARGED HOME IN THE CARE OF HER VTIA. NEW PRESCRIPTIONS CALLED TO [facility] PER PT REQUEST. IV REMOVED, WNL, CATHETER INTACT. PT VERBALIZES UNDERSTANDING OF DISCHARGE INSTRUCTIONS AND HAS NO QUESTIONS OR CONCERNS. PT WILL BE DISCHARGED WITH ALL PERSONAL BELONGINGS. NO FURTHER DISCHARGE NEEDS IDENTIFIED AT THIS TIME.
--- NOTE | 2021-03-31 14:02 | NUR ---
Met with patient after conference with bedside RN. Pt was admitted with high ammonia levels. She has a history of alcoholism, but states she hasn't drank in a year. However, she does tell me she stopped taking her lactulose altogether, because she had seen her sister do that same thing with a handful of prescriptions. She states she doesn't know what her sister's diagnosis was, but that her sister was taking many different daily prescribed pharmaceutical drugs. She reports her sister quit them all, and now feels better than before. Pt then states she thought maybe she could also quit taking her lactulose, but "found out the hard way" this simply wasn't the case. She states she will not be trying that again. Plan is likely for pt to go home today. I will remain available.
== END 2021-03-31 14:17 | disposition home or self-care (01) | DRG 442 ==
LOC: ER 22:17 → PCU 03-30 02:08
PROVIDERS: Family Medicine; Hospitalist; Student in an Organized Health Care Education/Training Program; ADMIT Internal Medicine
DX: K72.00 Acute and subacute hepatic failure without coma (principal); N39.0 Urinary tract infection, site not specified; E72.20 Disorder of urea cycle metabolism, unspecified; Z20.822 Contact with and (suspected) exposure to COVID-19; K70.31 Alcoholic cirrhosis of liver with ascites; Z66 Do not resuscitate; D69.6 Thrombocytopenia, unspecified; E78.5 Hyperlipidemia, unspecified; F41.9 Anxiety disorder, unspecified; I12.9 Hypertensive chronic kidney disease with stage 1 through stage 4 chronic kidney disease, or unspecified chronic kidney disease; N18.30 Chronic kidney disease, stage 3 unspecified; D63.1 Anemia in chronic kidney disease; J45.909 Unspecified asthma, uncomplicated; Z91.19 Patient's noncompliance with other medical treatment and regimen; K21.9 Gastro-esophageal reflux disease without esophagitis; Z79.01 Long term (current) use of anticoagulants; Z79.899 Other long term (current) drug therapy; Z98.890 Other specified postprocedural states
CPT/HCPCS: 0241U; 36415; 71045; 80048; 80053; 81001; 82140; 82607; 82728; 82746; 82947; 83540; 83550; 83735; 85014; 85018; 85025; 87077; 87086; 87186; 92610; 93005; 93010; 97161; 97530; 99285-25; A9270; J0696; J7030

== ENCOUNTER 2021-04-28 09:56 | Inpatient (IN) | payer MEDICARE, OTHER ==
[~2021-04-28] VITALS: Ht 152.4 cm; Wt 47.6 kg
[~2021-04-28 09:56] MED LIST changes: +CEFD300 PO
[2021-04-28 10:31] LABS: BASOPHILS ABSOLUTE AUTO 0.05 K/mm3 (0.00-0.23); BASOPHILS PERCENT AUTO 1 % (0-2); EOSINOPHILS ABSOLUTE AUTO 0.13 K/mm3 (0.00-0.68); EOSINOPHILS PERCENT AUTO 1 % (0-6); Hematocrit 29.6 % (33.0-51.0); IMMATURE GRAN ABSOLUTE AUTO 0.03 K/mm3 (0.00-0.10); IMMATURE GRAN PERCENT AUTO 0 % (0-1); LYMPHOCYTES ABSOLUTE AUTO 1.83 K/mm3 (0.84-5.20); LYMPHOCYTES PERCENT AUTO 20 % (21-46); MONOCYTES ABSOLUTE AUTO 0.61 K/mm3 (0.16-1.47); MONOCYTES PERCENT AUTO 7 % (4-13); Mean Corpuscular HGB 35.1 pg (26.0-34.0); Mean Corpuscular HGB Conc 33.8 g/dL (31.5-36.5); Mean Corpuscular Volume 104 fL (80-100); Mean Platelet Volume 10.3 fL (9.1-12.4); NEUTROPHILS ABSOLUTE AUTO 6.64 K/mm3 (1.96-9.15); NEUTROPHILS PERCENT AUTO 72 % (41-73); Platelet Count 134 K/mm3 (150-400); RDW Coefficient Variation 16.7 % (11.7-14.2); Red Blood Cell Count 2.85 M/mm3 (3.80-5.20); White Blood Cell Count 9.29 K/mm3 (4.00-11.30)
[2021-04-28 10:32] LABS: Source, Urine Catheter
[2021-04-28 10:39] LABS: Bilirubin, Urine Neg (Neg); Blood, Urine Neg (Neg); Glucose Qualitative, Urine Neg (Neg); Ketones, Urine Neg (Neg); Leukocyte Esterase, Urine Neg (Neg); Nitrite, Urine Neg (Neg); Protein, Urine Neg (Neg); Specific Gravity, Urine 1.015 (1.003-1.022); Urobilinogen, Urine NORM (Normal)
[2021-04-28 10:43] LABS: International Normalized Ratio 1.23; Prothrombin Time Results 12.7 Sec (9.7-11.5)
[2021-04-28 10:57] LABS: Albumin, Blood 2.5 g/dL (3.4-5.0); Albumin/Globulin Ratio 0.5 (0.8-1.8); Bilirubin, Total 1.7 mg/dL (0.1-1.0); Calcium, Blood 8.8 mg/dL (8.5-10.1); Creatinine, Blood 2.33 mg/dL (0.40-1.00); Globulin, Blood 4.6 g/dL (2.2-4.0); Potassium, Blood 5.1 mmol/L (3.5-5.5); Total Protein, Blood 7.1 g/dL (6.4-8.2)
[2021-04-28 11:01] LABS: Influenza A, PCR NEGATIVE (NEGATIVE); Influenza B, PCR NEGATIVE (NEGATIVE); Resp Syncytial Virus, PCR NEGATIVE (NEGATIVE); SARS-Cov-2 (COVID-19) PCR, MMC NEGATIVE (NEGATIVE)
[2021-04-28] MEDS ORDERED: FURO40 PO (11:32)
[2021-04-28] MEDS ORDERED: ONDA4 PO (11:34)
[2021-04-28] MEDS ORDERED: ALDACTONE100 MG PO (11:35)
[2021-04-28] MEDS ORDERED: PROP10 PO (11:36)
[2021-04-28] MEDS ORDERED: PANT40 PO (11:41)
[2021-04-28 11:47] LABS: Appearance, Urine Clear (Clear); Color, Urine Pale Yellow (P-Yellow)
--- NOTE | 2021-04-28 19:06 | NUR ---
RECEIVED PT INTO ROOM 358. PT IS NOT VERBALLY RESPONSIVE AT THIS TIME AND IS UNABLE TO ANSWER ADMISSION QUESTIONS.
[2021-04-29 04:38] LABS: Hematocrit 26.9 % (33.0-51.0); Hemoglobin 8.9 g/dL (11.5-16.0); Mean Corpuscular HGB 35.6 pg (26.0-34.0); Mean Corpuscular HGB Conc 33.1 g/dL (31.5-36.5); Mean Corpuscular Volume 108 fL (80-100); Mean Platelet Volume 9.9 fL (9.1-12.4); Platelet Count 103 K/mm3 (150-400); RDW Standard Deviation 67.5 fL (35.1-46.3); White Blood Cell Count 8.93 K/mm3 (4.00-11.30)
[2021-04-29 04:42] LABS: Calcium, Blood 9.1 mg/dL (8.5-10.1); Creatinine, Blood 1.64 mg/dL (0.40-1.00); Potassium, Blood 4.6 mmol/L (3.5-5.5)
--- NOTE | 2021-04-29 07:38 | NUR ---
Macy remains non verbal. tried 3-4 times to climb over the rail. ALARM ON. She was cooperative getting back in bed, however, it did not appear she understood our verbal commands. No indications of pain or discomfort overnight. Advised day RN to speak with hospitalist about changing po Lactulose to Lactulose enemas through the enema port on her rectal tube. The reason for this is that Macy is still nowhere near safely awake to swallow
--- NOTE | 2021-04-29 18:31 | NUR ---
SHIFT SUMMARY PATIENT RESTING IN BED. PATIENT BEGAN SHIFT AGITATED AND ATTEMPTING TO GET OUT OF BED, THROWING HER LEGS OVER THE SIDERAILS. PATIENT VERY CONFUSED AND UNABLE TO FOLLOW COMMANDS OR STAY IN BED. RESTRAINTS REQUESTED TO KEEP PATIENT SAFE FROM INJURING SELF OR FALLING OUT OF BED. PATIENT ALERT TO SELF. PATIENT IS ONLY ABLE TO STATE HER FIRST NAME. TOWARDS END OF SHIFT PATIENT IS ABLE TO ANSWER YES/NO QUESTIONS. RECTAL TUBE PRESENT WITH ATTENDS IN PLACE. PATIENT IS ON CLEAR LIQUID DIET AND TOLERATING WELL. BED IS IN LOW POSITION WITH CALL LIGHT IN REACH. WILL CONTINUE TO MONITOR.
--- NOTE | 2021-04-30 06:10 | NUR ---
SHIFT SUMMARY ALERT TO SELF. COOPERATIVE WITH CARE. REMAINS IN FILIBERTO VEST FOR SAFETY. PULLED RECTAL TUBE AROUND 0245; HOWEVER, HAS NOT HAD ANY STOOLS SINCE. APPEARED TO REST MUCH OF THE NIGHT. NO OTHER ACUTE CHANGES NOTED OVERNIGHT. BED REMAINS IN LOWEST POSITION; ALARM ON. CALL LIGHT WITHIN REACH. REPORT TO ONCOMING RN.
[2021-04-30 06:14] LABS: Bun/Creatinine Ratio 29.8 (12.0-20.0); Calcium, Blood 8.5 mg/dL (8.5-10.1); Creatinine, Blood 1.04 mg/dL (0.40-1.00); Potassium, Blood 4.5 mmol/L (3.5-5.5)
--- NOTE | 2021-04-30 18:37 | NUR ---
SHIFT SUMMARY PATIENT IS RESTING IN BED WATCHING TV. PATIENT IS A&O X4. SBA TO BS. PATIENT HAD BM WITH BRIGHT RED BLOOD PRESENT THIS AM. NO ACTIVE BLEEDING FOUND ON EXAMINATION. PATIENT HAS HAD MULTIPLE LIQUID BM THROUGHOUT THE DAY WITH NO MORE BLOOD PRESENT. PATIENT IS ON CLEAR LIQUID DIET AND FEEDING SELF INDEPENDENTLY. PATIENT FRIEND WAS AT BEDSIDE THIS AFTERNOON. BED IS IN LOW POSITION WITH BED ALARM ARMED AND CALL LIGHT IN REACH. WILL CONTINUE TO MONITOR.
[2021-05-01 04:39] LABS: Hematocrit 22.6 % (33.0-51.0); Hemoglobin 7.4 g/dL (11.5-16.0); Mean Corpuscular HGB 35.6 pg (26.0-34.0); Mean Corpuscular HGB Conc 32.7 g/dL (31.5-36.5); Mean Corpuscular Volume 109 fL (80-100); Mean Platelet Volume 9.6 fL (9.1-12.4); Platelet Count 75 K/mm3 (150-400); RDW Coefficient Variation 16.3 % (11.7-14.2); RDW Standard Deviation 64.6 fL (35.1-46.3); Red Blood Cell Count 2.08 M/mm3 (3.80-5.20)
[2021-05-01 04:57] LABS: Anion Gap 5 mmol/L (6-16); Blood Urea Nitrogen 20 mg/dL (8-24); Bun/Creatinine Ratio 23.3 (12.0-20.0); CO2, Blood 17 mmol/L (21-32); Calcium, Blood 8.3 mg/dL (8.5-10.1); Chloride, Blood 117 mmol/L (98-108); Creatinine, Blood 0.86 mg/dL (0.40-1.00); Glomerular Filtration Rate >60 (60-); Glucose, Blood 84 mg/dL (70-99); Potassium, Blood 4.2 mmol/L (3.5-5.5); Sodium, Blood 139 mmol/L (136-145)
--- NOTE | 2021-05-01 05:02 | NUR ---
SHIFT SUMMARY PT IS AWAKE AND ALERT X4. DNR CODE STATUS. NO ACUTE EVENT OVERNIGHT. PT IS RESTING COMFORTABLY AT THIS TIME . BED ALARM ON ON LOWER POSITION AND CALL LIGHT WITHIN REACH. WILL CONTINUE TO MONITOR.
[2021-05-01 12:29] LABS: Hematocrit 27.4 % (33.0-51.0); Hemoglobin 8.5 g/dL (11.5-16.0)
--- NOTE | 2021-05-01 15:24 | NUR ---
DISCHARGE SUMMARY PT A/O X4; PLEASANT AND COOPERATIVE WITH CARE. TAKING LACTULOSE AND HAVING LIQUID BM'S. BM'S ARE ORANGE TO RED COLORED AT TIMES. H&H REDRAWN AND HAS INCREASED SINCE THIS MORNING. NO COMPLAINTS OF DIZZINESS AND THE PATIENT'S MENTAL STATUS HAS GREATLY IMPROVED. VSS. PT DC'D HOME WITH .
== END 2021-05-01 15:16 | disposition short-term general hospital (02) | DRG 432 ==
LOC: ER 09:56 → ERHOLD 12:15 → MEDS 18:22
PROVIDERS: Emergency Medicine; Internal Medicine; ADMIT Internal Medicine
PROC: 30233N1 Transfusion of Nonautologous Red Blood Cells into Peripheral Vein, Percutaneous Approach (ICD-10-PCS; principal; 2021-04-28)
DX: K70.31 Alcoholic cirrhosis of liver with ascites (principal); I85.11 Secondary esophageal varices with bleeding; N17.9 Acute kidney failure, unspecified; D64.9 Anemia, unspecified; D69.59 Other secondary thrombocytopenia; Z66 Do not resuscitate; K72.90 Hepatic failure, unspecified without coma; J45.909 Unspecified asthma, uncomplicated; K21.9 Gastro-esophageal reflux disease without esophagitis; D69.6 Thrombocytopenia, unspecified; I10 Essential (primary) hypertension; E78.5 Hyperlipidemia, unspecified; F41.9 Anxiety disorder, unspecified; Z98.890 Other specified postprocedural states; Z79.899 Other long term (current) drug therapy
CPT/HCPCS: 0241U; 36415; 51701; 71045; 80048; 80053; 81003; 82140; 85014; 85018; 85025; 85027; 85610; 90686; 93005; 93010; 99285-25; A9270; C9113; J2060; J7030

== ENCOUNTER 2021-05-04 20:59 | Inpatient (IN) | payer MEDICARE, OTHER ==
[~2021-05-04] VITALS: Ht 157.5 cm; Wt 62.9 kg
[~2021-05-04 20:59] MED LIST changes: +ONDA4 PO; +PANT40 PO
[2021-05-04 21:33] LABS: BASOPHILS ABSOLUTE AUTO 0.03 K/mm3 (0.00-0.23); BASOPHILS PERCENT AUTO 0 % (0-2); EOSINOPHILS ABSOLUTE AUTO 0.02 K/mm3 (0.00-0.68); EOSINOPHILS PERCENT AUTO 0 % (0-6); Hematocrit 21.4 % (33.0-51.0); IMMATURE GRAN ABSOLUTE AUTO 0.14 K/mm3 (0.00-0.10); IMMATURE GRAN PERCENT AUTO 1 % (0-1); LYMPHOCYTES ABSOLUTE AUTO 1.85 K/mm3 (0.84-5.20); LYMPHOCYTES PERCENT AUTO 10 % (21-46); MONOCYTES ABSOLUTE AUTO 0.92 K/mm3 (0.16-1.47); MONOCYTES PERCENT AUTO 5 % (4-13); Mean Corpuscular HGB 35.7 pg (26.0-34.0); Mean Corpuscular HGB Conc 32.7 g/dL (31.5-36.5); Mean Corpuscular Volume 109 fL (80-100); Mean Platelet Volume 10.1 fL (9.1-12.4); NEUTROPHILS PERCENT AUTO 83 % (41-73); Platelet Count 130 K/mm3 (150-400); RDW Coefficient Variation 17.2 % (11.7-14.2); RDW Standard Deviation 68.5 fL (35.1-46.3); Red Blood Cell Count 1.96 M/mm3 (3.80-5.20); White Blood Cell Count 17.76 K/mm3 (4.00-11.30)
[2021-05-04 21:56] LABS: Albumin/Globulin Ratio 0.5 (0.8-1.8); Bilirubin, Total 1.5 mg/dL (0.1-1.0); Bun/Creatinine Ratio 38.9 (12.0-20.0); Calcium, Blood 8.6 mg/dL (8.5-10.1); Creatinine, Blood 1.67 mg/dL (0.40-1.00); Globulin, Blood 3.7 g/dL (2.2-4.0); Potassium, Blood 4.8 mmol/L (3.5-5.5); Total Protein, Blood 5.7 g/dL (6.4-8.2)
--- NOTE | 2021-05-05 03:55 | NUR ---
PATIENT ARRIVED TO ICU 7 VIA GURNEY FROM ED WITH DX OF GI BLEED AWAITING TRANSFER TO [facility] FOR GI COVERAGE. PATIENT TRANSFER TO ICU BED WITH SLIDER SHEET AND PLACED ON ICU MONITORS. OCTREOTIDE DRIP INFUSING, PROTONIX DRIP RESTARTED AND NS @ 100/HR STARTED. PATIENT A&O REQUESTING ICE CHIPS. NO C/O NAUSEA. PATIENT HAD SEVERAL LIQUID STOOLS IN ED, ATTENDS IN PLACE. VERBALIZED NO URGE TO VOID AT THIS TIME. 1 UNIT PRBC GIVEN IN ED.
[2021-05-05 03:56] LABS: Hematocrit 27.9 % (33.0-51.0); Mean Corpuscular HGB 34.5 pg (26.0-34.0); Mean Corpuscular HGB Conc 32.3 g/dL (31.5-36.5); Mean Corpuscular Volume 107 fL (80-100); Mean Platelet Volume 9.8 fL (9.1-12.4); Platelet Count 110 K/mm3 (150-400); RDW Coefficient Variation 18.4 % (11.7-14.2); RDW Standard Deviation 70.1 fL (35.1-46.3); Red Blood Cell Count 2.61 M/mm3 (3.80-5.20); White Blood Cell Count 19.84 K/mm3 (4.00-11.30)
[2021-05-05 04:24] LABS: International Normalized Ratio 1.31; Prothrombin Time Results 13.5 Sec (9.7-11.5)
--- NOTE | 2021-05-05 04:39 | NUR ---
REPORT CALLED TO AUGUST PATTERSON RN. PATIENT TRANSPORT VIA AMBULANCE WITH PROTONIX, OCTREOTIDE, AND NS INFUSING.
--- NOTE | 2021-05-05 04:44 | NUR ---
ATTEMPT TO CALL DANIEL BLACKMON (SISTER) , AND HELEN GRIER (FRIEND) TO NOTIFY OF PATIENT TRANSFER TO [facility]. PATIENTS BELONGINGS SENT WITH PATIENT.
== END 2021-05-05 04:35 | disposition short-term general hospital (02) | DRG 378 ==
LOC: ER 20:59 → ICUW 21:00 → ICUE 05-05 03:05
PROVIDERS: Physician Assistant; ADMIT Internal Medicine
PROC: 30233N1 Transfusion of Nonautologous Red Blood Cells into Peripheral Vein, Percutaneous Approach (ICD-10-PCS; principal; 2021-05-04)
PROC: 3E02340 Introduction of Influenza Vaccine into Muscle, Percutaneous Approach (ICD-10-PCS; 2021-05-05)
DX: K92.1 Melena (principal); N17.9 Acute kidney failure, unspecified; K21.9 Gastro-esophageal reflux disease without esophagitis; J45.909 Unspecified asthma, uncomplicated; K70.30 Alcoholic cirrhosis of liver without ascites; Z66 Do not resuscitate; D69.6 Thrombocytopenia, unspecified; I10 Essential (primary) hypertension; E78.5 Hyperlipidemia, unspecified; F41.9 Anxiety disorder, unspecified; D50.0 Iron deficiency anemia secondary to blood loss (chronic); K70.31 Alcoholic cirrhosis of liver with ascites; D69.59 Other secondary thrombocytopenia; Z98.890 Other specified postprocedural states; Z23 Encounter for immunization
CPT/HCPCS: 36415; 36430; 80053; 82272; 85025; 85027; 85610; 86850; 86900; 86901; 86923; 90686; 96365; 96367; 99285-25; C9113; G0008; J0696; J2354; J7030; J7050; P9016

== ENCOUNTER 2021-05-25 08:46 | Emergency (ER) | payer MEDICARE ==
[~2021-05-25] VITALS: Ht 157.5 cm; Wt 59.0 kg
[~2021-05-25 08:46] MED LIST changes: +OYSTER SHELL 51 EAC2 PO; -OYSTER SHELL 51 EACH PO
[2021-05-25 09:42] LABS: Source, Urine Clean Catch
[2021-05-25 09:52] LABS: Albumin, Blood 2.8 g/dL (3.4-5.0); Albumin/Globulin Ratio 0.6 (0.8-1.8); Bun/Creatinine Ratio 23.7 (12.0-20.0); Calcium, Blood 9.2 mg/dL (8.5-10.1); Creatinine, Blood 1.14 mg/dL (0.40-1.00); Globulin, Blood 4.7 g/dL (2.2-4.0); Total Protein, Blood 7.5 g/dL (6.4-8.2)
[2021-05-25 10:00] LABS: Appearance, Urine Clear (Clear); Bilirubin, Urine Neg (Neg); Blood, Urine 1+ (Neg); Color, Urine Yellow (P-Yellow); Glucose Qualitative, Urine Neg (Neg); Ketones, Urine Neg (Neg); Leukocyte Esterase, Urine Neg (Neg); Nitrite, Urine Neg (Neg); Protein, Urine 1+ (Neg); Specific Gravity, Urine 1.015 (1.003-1.022); Urobilinogen, Urine 1+ (Normal)
[2021-05-25 10:15] LABS: Bacteria Rare /hpf; Red Blood Cells, Urine 0-2 /hpf (0-2); Squamous Epithelial Cells Rare /hpf (Few); White Blood Cells, Urine 0-2 /hpf (0-5)
[2021-05-25] MEDS ORDERED: HYDR1TAB94 PO (12:35)
== END 2021-05-25 12:58 | disposition home or self-care (01) ==
LOC: ER 08:46
PROVIDERS: Physician Assistant
DX: M53.3 Sacrococcygeal disorders, not elsewhere classified (principal); K21.9 Gastro-esophageal reflux disease without esophagitis; Z79.899 Other long term (current) drug therapy
CPT/HCPCS: 36415; 80053; 81001; 99284; A9270

== ENCOUNTER 2021-05-29 22:09 | Inpatient (IN) | payer MEDICARE ==
[~2021-05-29] VITALS: Ht 157.5 cm; Wt 52.6 kg
[~2021-05-29 22:09] MED LIST changes: +HYDR1TAB94 PO
[2021-05-29 22:31] LABS: Source, Urine Clean Catch
[2021-05-29 22:36] LABS: Bilirubin, Urine Neg (Neg); Blood, Urine Neg (Neg); Glucose Qualitative, Urine Neg (Neg); Ketones, Urine Neg (Neg); Leukocyte Esterase, Urine Neg (Neg); Nitrite, Urine Neg (Neg); Protein, Urine Neg (Neg); Urobilinogen, Urine NORM (Normal)
[2021-05-29 22:39] LABS: Appearance, Urine Clear (Clear); Color, Urine Pale Yellow (P-Yellow)
[2021-05-29] MEDS ORDERED: ALDACTONE100 MG PO (22:44)
[2021-05-29 22:45] LABS: BASOPHILS ABSOLUTE AUTO 0.02 K/mm3 (0.00-0.23); BASOPHILS PERCENT AUTO 0 % (0-2); EOSINOPHILS ABSOLUTE AUTO 0.16 K/mm3 (0.00-0.68); EOSINOPHILS PERCENT AUTO 3 % (0-6); Hematocrit 30.5 % (33.0-51.0); Hemoglobin 10.4 g/dL (11.5-16.0); IMMATURE GRAN ABSOLUTE AUTO 0.03 K/mm3 (0.00-0.10); IMMATURE GRAN PERCENT AUTO 1 % (0-1); LYMPHOCYTES ABSOLUTE AUTO 0.82 K/mm3 (0.84-5.20); LYMPHOCYTES PERCENT AUTO 15 % (21-46); MONOCYTES ABSOLUTE AUTO 0.53 K/mm3 (0.16-1.47); MONOCYTES PERCENT AUTO 10 % (4-13); Mean Corpuscular HGB 35.6 pg (26.0-34.0); Mean Corpuscular HGB Conc 34.1 g/dL (31.5-36.5); Mean Corpuscular Volume 105 fL (80-100); Mean Platelet Volume 8.7 fL (9.1-12.4); NEUTROPHILS PERCENT AUTO 71 % (41-73); Platelet Count 99 K/mm3 (150-400); RDW Coefficient Variation 20.2 % (11.7-14.2); Red Blood Cell Count 2.92 M/mm3 (3.80-5.20); White Blood Cell Count 5.36 K/mm3 (4.00-11.30)
[2021-05-29] MEDS ORDERED: BACL10 PO (22:45)
[2021-05-29 23:04] LABS: Albumin, Blood 2.9 g/dL (3.4-5.0); Albumin/Globulin Ratio 0.6 (0.8-1.8); Bilirubin, Total 3.1 mg/dL (0.1-1.0); Bun/Creatinine Ratio 32.1 (12.0-20.0); Calcium, Blood 9.5 mg/dL (8.5-10.1); Creatinine, Blood 1.06 mg/dL (0.40-1.00); Globulin, Blood 4.5 g/dL (2.2-4.0); Potassium, Blood 3.5 mmol/L (3.5-5.5); Total Protein, Blood 7.4 g/dL (6.4-8.2)
[2021-05-30 00:38] LABS: International Normalized Ratio 1.25; Prothrombin Time Results 12.9 Sec (9.7-11.5)
[2021-05-30 06:18] LABS: BASOPHILS ABSOLUTE AUTO 0.02 K/mm3 (0.00-0.23); BASOPHILS PERCENT AUTO 1 % (0-2); EOSINOPHILS ABSOLUTE AUTO 0.13 K/mm3 (0.00-0.68); EOSINOPHILS PERCENT AUTO 3 % (0-6); Hematocrit 27.4 % (33.0-51.0); Hemoglobin 9.2 g/dL (11.5-16.0); IMMATURE GRAN ABSOLUTE AUTO 0.01 K/mm3 (0.00-0.10); IMMATURE GRAN PERCENT AUTO 0 % (0-1); LYMPHOCYTES ABSOLUTE AUTO 0.86 K/mm3 (0.84-5.20); LYMPHOCYTES PERCENT AUTO 20 % (21-46); MONOCYTES ABSOLUTE AUTO 0.51 K/mm3 (0.16-1.47); MONOCYTES PERCENT AUTO 12 % (4-13); Mean Corpuscular HGB 35.5 pg (26.0-34.0); Mean Corpuscular HGB Conc 33.6 g/dL (31.5-36.5); Mean Corpuscular Volume 106 fL (80-100); Mean Platelet Volume 8.9 fL (9.1-12.4); NEUTROPHILS ABSOLUTE AUTO 2.87 K/mm3 (1.96-9.15); NEUTROPHILS PERCENT AUTO 65 % (41-73); Platelet Count 77 K/mm3 (150-400); RDW Coefficient Variation 20.2 % (11.7-14.2); RDW Standard Deviation 77.2 fL (35.1-46.3); Red Blood Cell Count 2.59 M/mm3 (3.80-5.20)
[2021-05-30 07:14] LABS: Albumin, Blood 2.7 g/dL (3.4-5.0); Albumin/Globulin Ratio 0.7 (0.8-1.8); Bilirubin, Total 2.9 mg/dL (0.1-1.0); Bun/Creatinine Ratio 28.8 (12.0-20.0); Calcium, Blood 9.2 mg/dL (8.5-10.1); Creatinine, Blood 1.04 mg/dL (0.40-1.00); Globulin, Blood 3.9 g/dL (2.2-4.0); Total Protein, Blood 6.6 g/dL (6.4-8.2)
--- NOTE | 2021-05-30 10:57 | NUR ---
ASSUMED CARE OF PT. PT OPENS EYES TO VERBAL STIMULATION, PT UNABLE TO ANSWER QUESTIONS APPROPRIATELY AT THIS TIME...ANSWERS ALL QUESTIONS WITH "UH HUH". PT FOLLOWS COMMANDS INTERMITTENTLY AND ABLE TO SWALLOW MEDICATIONS WITHOUT DIFFICULTY. VSS AT THIS TIME. SEE FULL ADMISSION ASSESSMENT.
[2021-05-30] MEDS ORDERED: FERSU300 PO (14:45)
[2021-05-30] MEDS ORDERED: Kristalose20 GM PO (14:46)
[2021-05-30] MEDS ORDERED: HYDR1TAB94 PO (14:46)
[2021-05-30] MEDS ORDERED: ONDA4 PO (14:48)
[2021-05-30] MEDS ORDERED: Inderal 20 mg T20 MG PO (14:49)
--- NOTE | 2021-05-30 16:25 | NUR ---
SHIFT SUMMARY PATIENT ADMITTED FROM ER AT 1440. PATIENT SETTLED INTO ROOM. PATIENT DENIES PAIN, NAUSEA, AND SHORTNESS OF BREATH. PATIENT ON TELE, RUNNING SR AT 96. PATIENT A&O 2-3. PATIENT DID NOT FOLLOW DIRECTIONS WELL. ADMISSION WAS DONE IN ER. PATIENT IS EATING AND DRINKING WELL. PATIENT FELT TOO WEAK TO STAND. PATIENT ALSO REPORTS DIZZINESS. TURNED LIGHTS OUT SO PATIENT COULD SLEEP. PATIENT NAPPED SINCE BEING ON FLOOR. PATIENT IS PLEASANT AND COOPERATIVE WITH CARE.
--- NOTE | 2021-05-31 04:18 | NUR ---
SHIFT SUMMARY 66 YR F ADMITTED ON 05/29/21 FOR ACUTE HEPATIC ENCEPHALOPATHY. FULL CODE. PT HAD AN AMMONIA LEVEL OF 80 THIS A.M. AND HAS BEEN BEING GIVEN LACTULOSE TO ENCOURAGE BOWEL MOVEMENTS. PRIOR SHIFT NURSE STATED THAT PT WAS CONFUSED AND DID NOT KNOW HER OWN BIRTHDAY. SHE HAD 3 BOWEL MOVEMENTS ON THIS SHIFT AND HER CONFUSION SEEMS TO BE SUBSIDING SUBSTANTIALLY. SHE IS NOW A&O X 4. SHE IS PLEASANT AND COOPERATIVE AND FOLLOWS INSTRUCTIONS WELL.
[2021-05-31 08:37] LABS: Hematocrit 29.6 % (33.0-51.0); Hemoglobin 9.9 g/dL (11.5-16.0); Mean Corpuscular HGB 36.3 pg (26.0-34.0); Mean Corpuscular HGB Conc 33.4 g/dL (31.5-36.5); Mean Corpuscular Volume 108 fL (80-100); Mean Platelet Volume 8.9 fL (9.1-12.4); Platelet Count 72 K/mm3 (150-400); RDW Coefficient Variation 20.6 % (11.7-14.2); Red Blood Cell Count 2.73 M/mm3 (3.80-5.20); White Blood Cell Count 5.35 K/mm3 (4.00-11.30)
[2021-05-31 08:56] LABS: Albumin, Blood 2.6 g/dL (3.4-5.0); Anion Gap 8 mmol/L (6-16); Blood Urea Nitrogen 25 mg/dL (8-24); Bun/Creatinine Ratio 26.5 (12.0-20.0); CO2, Blood 24 mmol/L (21-32); Calcium, Blood 9.4 mg/dL (8.5-10.1); Chloride, Blood 107 mmol/L (98-108); Creatinine, Blood 0.94 mg/dL (0.40-1.00); Glomerular Filtration Rate 59 (60-); Glucose, Blood 114 mg/dL (70-99); Phosphorus, Blood 2.2 mg/dL (2.5-4.9); Potassium, Blood 3.6 mmol/L (3.5-5.5); Sodium, Blood 139 mmol/L (136-145)
--- NOTE | 2021-05-31 17:07 | NUR ---
SHIFT SUMMARY PATIENT REPORTS PAIN IN BACK, REPOSITIONED. PATIENT DENIES NAUSEA AND SHORTNESS OF BREATH. PATIENT IS A&O X4. PATIENT IS A SBA TO THE BATHROOM. PATIENT IS HAVING MULTIPLE LOOSE STOOLS, X4 THIS SHIFT. ULTRASOUND OF ABDOMEN TO CHECK FOR ASCITIES DONE. PATIENT IS EATING AND DRINKING WELL. PATIENT USES CALL LIGHT APPROPRIATELY. NEW IV PLACED, 20G IN LEFT FOREARM. PATIENT TOLERATED WELL. PATIENT IS PLEASANT AND COOPERATIVE WITH CARE.
--- NOTE | 2021-05-31 21:16 | NUR ---
TRANSFER: REPORT WAS RECIEVED FROM JOSE C ALFARO AND PATIENT IS TRANSFERED INTO ROOM 328. REPORTING BACK PAIN 02/17. HEAT IS APPLIED, NO PAIN MEDS ON JUL, WILL NOTIFY
[2021-06-01 04:10] LABS: Hematocrit 26.6 % (33.0-51.0); Hemoglobin 8.9 g/dL (11.5-16.0); Mean Corpuscular HGB 35.7 pg (26.0-34.0); Mean Corpuscular HGB Conc 33.5 g/dL (31.5-36.5); Mean Corpuscular Volume 107 fL (80-100); Mean Platelet Volume 9.8 fL (9.1-12.4); Platelet Count 68 K/mm3 (150-400); RDW Standard Deviation 76.2 fL (35.1-46.3); Red Blood Cell Count 2.49 M/mm3 (3.80-5.20); White Blood Cell Count 5.29 K/mm3 (4.00-11.30)
[2021-06-01 04:50] LABS: Alanine Aminotransfer (ALT/SGP 35 U/L (12-78); Albumin, Blood 2.4 g/dL (3.4-5.0); Albumin/Globulin Ratio 0.6 (0.8-1.8); Alk Phos 156 U/L (50-136); Anion Gap 8 mmol/L (6-16); Aspartate Aminotrans (AST/SGOT 48 U/L (12-37); Bilirubin, Total 1.9 mg/dL (0.1-1.0); Blood Urea Nitrogen 23 mg/dL (8-24); Bun/Creatinine Ratio 29.6 (12.0-20.0); CO2, Blood 22 mmol/L (21-32); Calcium, Blood 8.9 mg/dL (8.5-10.1); Chloride, Blood 107 mmol/L (98-108); Creatinine, Blood 0.78 mg/dL (0.40-1.00); Globulin, Blood 4.1 g/dL (2.2-4.0); Glomerular Filtration Rate >60 (60-); Glucose, Blood 131 mg/dL (70-99); Potassium, Blood 4.2 mmol/L (3.5-5.5); Sodium, Blood 137 mmol/L (136-145); Total Protein, Blood 6.5 g/dL (6.4-8.2)
--- NOTE | 2021-06-01 06:56 | NUR ---
SHIFT SUMMARY: PATIENT IS REPORTING BACK/ABD. PAIN 10/10 WITH MOVEMENT. K PAD WAS TRIED. DR SCRUGGS WAS NOTIED AND LIDOCANE PATCH WAS PLACED ON WITH POOR EFFECT. PATIENT CONTINUED TO COMPLIAN OF BACK/ ABD. PAIN. DR ROJO WAS NOTIFIED AND ORDERS FOR FENTANYL WAS OBTAINED AND MED WAS GIVEN WITH FAIR EFFECT. THIS AM PATIENT REPORTS SHE HAD A VISITOR DURING THE NIGHT, PATIENT WAS HALLUCINATING.
[2021-06-01] MEDS ORDERED: RIFA550T2 PO (11:07)
--- NOTE | 2021-06-01 13:22 | NUR ---
PT AWAKE AT START OF SHIFT, WANTING TO GO HOME. PT UNABLE TO TALK TO S/O OR LEAVE MESSAGE. DR MCNAMARA IN TO SEE PT; D/C ORDERS PLACED. MEDS FAXED TO [facility], PER PT REQUEST. PT LATER ABLE TO LEAVE MESSAGE FOR HER SISTER TO PICK HER UP. IV AND TELE D/C'D. PT ABLE TO DRESS HERSELF. FAMILY CALLED WHEN DOWNSTAIRS. PT ASSISTED DOWN WITH HER BELONGINGS, VIA W/C.
== END 2021-06-01 12:26 | disposition home or self-care (01) | DRG 432 ==
LOC: ER 22:09 → ERHOLD 22:10 → MEDS 05-30 14:41
PROVIDERS: Internal Medicine; Student in an Organized Health Care Education/Training Program; ADMIT Internal Medicine
DX: K70.30 Alcoholic cirrhosis of liver without ascites (principal); K72.00 Acute and subacute hepatic failure without coma; D63.8 Anemia in other chronic diseases classified elsewhere; N18.30 Chronic kidney disease, stage 3 unspecified; K21.9 Gastro-esophageal reflux disease without esophagitis; E86.0 Dehydration; J45.909 Unspecified asthma, uncomplicated; D69.6 Thrombocytopenia, unspecified; F41.9 Anxiety disorder, unspecified; E78.5 Hyperlipidemia, unspecified; Z79.899 Other long term (current) drug therapy; Z98.890 Other specified postprocedural states
CPT/HCPCS: 36415; 51798; 70450; 76705; 80053; 80069; 81003; 82140; 82248; 85025; 85027; 85610; 96365; 96372; 99285-25; A9270; G0378; J1650; J3010; J7030; J7060

== ENCOUNTER 2021-06-05 09:28 | Observation (INO) | payer MEDICARE ==
[~2021-06-05] VITALS: Ht 167.6 cm; Wt 72.6 kg
[~2021-06-05 09:28] MED LIST changes: +BACL10 PO; +FERSU300 PO
[2021-06-05 10:25] LABS: International Normalized Ratio 1.22; Prothrombin Time Results 12.6 Sec (9.7-11.5)
[2021-06-05 10:34] LABS: Alanine Aminotransfer (ALT/SGP 39 U/L (12-78); Albumin, Blood 2.8 g/dL (3.4-5.0); Albumin/Globulin Ratio 0.6 (0.8-1.8); Alk Phos 198 U/L (50-136); Anion Gap 7 mmol/L (6-16); Aspartate Aminotrans (AST/SGOT 51 U/L (12-37); Bilirubin, Direct 1.1 mg/dL (0.0-0.3); Bilirubin, Total 2.1 mg/dL (0.1-1.0); Blood Urea Nitrogen 33 mg/dL (8-24); Bun/Creatinine Ratio 23.1 (12.0-20.0); CO2, Blood 24 mmol/L (21-32); Calcium, Blood 9.4 mg/dL (8.5-10.1); Chloride, Blood 107 mmol/L (98-108); Creatinine, Blood 1.43 mg/dL (0.40-1.00); Globulin, Blood 4.6 g/dL (2.2-4.0); Glomerular Filtration Rate 37 (60-); Glucose, Blood 106 mg/dL (70-99); Magnesium, Blood 1.6 mg/dL (1.6-2.4); Sodium, Blood 138 mmol/L (136-145); Total Protein, Blood 7.4 g/dL (6.4-8.2); Troponin I <0.015 ng/mL (0.000-0.040)
[2021-06-05 13:35] LABS: Source, Urine Straight Cath
[2021-06-05 13:46] LABS: Appearance, Urine Clear (Clear); Bilirubin, Urine Neg (Neg); Blood, Urine Neg (Neg); Color, Urine Yellow (P-Yellow); Glucose Qualitative, Urine Neg (Neg); Ketones, Urine Neg (Neg); Leukocyte Esterase, Urine Neg (Neg); Nitrite, Urine Neg (Neg); Protein, Urine Neg (Neg); Urobilinogen, Urine NORM (Normal)
[2021-06-05 16:43] LABS: BASOPHILS ABSOLUTE AUTO 0.04 K/mm3 (0.00-0.23); BASOPHILS PERCENT AUTO 1 % (0-2); EOSINOPHILS ABSOLUTE AUTO 0.14 K/mm3 (0.00-0.68); EOSINOPHILS PERCENT AUTO 2 % (0-6); Hematocrit 32.8 % (33.0-51.0); Hemoglobin 11.3 g/dL (11.5-16.0); IMMATURE GRAN ABSOLUTE AUTO 0.01 K/mm3 (0.00-0.10); IMMATURE GRAN PERCENT AUTO 0 % (0-1); LYMPHOCYTES ABSOLUTE AUTO 0.89 K/mm3 (0.84-5.20); LYMPHOCYTES PERCENT AUTO 15 % (21-46); MONOCYTES ABSOLUTE AUTO 0.49 K/mm3 (0.16-1.47); MONOCYTES PERCENT AUTO 8 % (4-13); Mean Corpuscular HGB 36.1 pg (26.0-34.0); Mean Corpuscular HGB Conc 34.5 g/dL (31.5-36.5); Mean Corpuscular Volume 105 fL (80-100); Mean Platelet Volume 9.5 fL (9.1-12.4); NEUTROPHILS ABSOLUTE AUTO 4.39 K/mm3 (1.96-9.15); NEUTROPHILS PERCENT AUTO 74 % (41-73); Platelet Count 84 K/mm3 (150-400); RDW Coefficient Variation 20.1 % (11.7-14.2); RDW Standard Deviation 76.9 fL (35.1-46.3); Red Blood Cell Count 3.13 M/mm3 (3.80-5.20); White Blood Cell Count 5.96 K/mm3 (4.00-11.30)
[2021-06-05 16:58] LABS: International Normalized Ratio 1.18; Prothrombin Time Results 12.3 Sec (9.7-11.5)
[2021-06-05 19:29] LABS: U Amphetamine Screen Not Detected; U Barbituate Screen Not Detected; U Benzodiazapine Screen Not Detected; U Buprenorphine Screen Not Detected; U Cannabinoids Screen Not Detected; U Cocaine Screen Not Detected; U Methadone Screen Not Detected; U Methamphetamine Screen Not Detected; U Opiates Screen Not Detected; U Oxycodone Screen Not Detected; U Phencyclidine Screen Not Detected; U Propoxyphene Screen Not Detected
[2021-06-05] MEDS ORDERED: Norco 5-325 Ta1 EACH PO (20:44)
--- NOTE | 2021-06-05 22:08 | NUR ---
ECHO IS A NEW ADMIT FROM THE ED. THREE PERSON TRANSFER FROM [facility] TO BED. PATIENT UNABLE TO STAND. ALERT TO SELF. RESPONDS TO VERBAL COMMAND AT TIMES WITH 1-2 WORD ANSWERS. WHEN ASKED IF SHE WANTED TV ON, REPORTED YES. BEDREST AND NPO. PO MEDS HELD. SOMNOLENT. PAIN WITH MOVEMENT TO BACK. DENIES SOB AND N/V. ROOM AIR. PATIENT UNABLE TO ANSWER WHAT ELECTRONIC DEVICE ABELARDO CHEST. SLEEPING DURING MOST OF ASSESSMENT. D5 1/2 NS INFUSING AT 75mL/HR. BED ALARM FOR SAFETY. CALL LIGHT IN REACH.
--- NOTE | 2021-06-06 03:46 | NUR ---
SHIFT SUMMARY PATIENT HAD NO ACUTE CHANGES OBSERVED. ALERT TO SELF. NO: DATE, MONTH, YEAR, FACILITY, PLACE OF RESIDENCE. ANSWERS QUESTIONS WITH 1-2 WORDS WITH HESITANCY. BEDREST. RT SETUP CONTINUOUS PULSE OXIMETRY STATING 98% ON ROOM AIR. ZIO PATCH ABELARDO CHEST IN PLACE FROM ADMIT. PIV REMAINS INTACT. D5 1/2 NS INFUSING AT 75mL/HR. NPO. SOMNOLENT T/O SHIFT. DENIES CHEST PAIN, SOB, AND N/V. BACK PAIN WITH MOVEMENT. NO IMPROVEMENT IN MENTATION AT THIS TIME. CALL LIGHT IN REACH. BED IN LOWEST POSITION AND ALARM ACTIVATED. WILL CONTINUE TO MONITOR UNTIL DAY SHIFT NURSE ASSUMES CARE.
[2021-06-06 05:07] LABS: BASOPHILS ABSOLUTE AUTO 0.05 K/mm3 (0.00-0.23); BASOPHILS PERCENT AUTO 1 % (0-2); EOSINOPHILS ABSOLUTE AUTO 0.19 K/mm3 (0.00-0.68); EOSINOPHILS PERCENT AUTO 3 % (0-6); Hematocrit 29.4 % (33.0-51.0); Hemoglobin 9.9 g/dL (11.5-16.0); IMMATURE GRAN ABSOLUTE AUTO 0.01 K/mm3 (0.00-0.10); IMMATURE GRAN PERCENT AUTO 0 % (0-1); LYMPHOCYTES ABSOLUTE AUTO 0.84 K/mm3 (0.84-5.20); LYMPHOCYTES PERCENT AUTO 15 % (21-46); MONOCYTES ABSOLUTE AUTO 0.64 K/mm3 (0.16-1.47); MONOCYTES PERCENT AUTO 11 % (4-13); Mean Corpuscular HGB 36.1 pg (26.0-34.0); Mean Corpuscular HGB Conc 33.7 g/dL (31.5-36.5); Mean Corpuscular Volume 107 fL (80-100); Mean Platelet Volume 9.8 fL (9.1-12.4); NEUTROPHILS ABSOLUTE AUTO 3.96 K/mm3 (1.96-9.15); NEUTROPHILS PERCENT AUTO 70 % (41-73); Platelet Count 78 K/mm3 (150-400); RDW Coefficient Variation 20.1 % (11.7-14.2); RDW Standard Deviation 78.4 fL (35.1-46.3); Red Blood Cell Count 2.74 M/mm3 (3.80-5.20); White Blood Cell Count 5.69 K/mm3 (4.00-11.30)
[2021-06-06 05:49] LABS: Albumin, Blood 2.7 g/dL (3.4-5.0); Albumin/Globulin Ratio 0.7 (0.8-1.8); Bilirubin, Total 2.3 mg/dL (0.1-1.0); Bun/Creatinine Ratio 27.6 (12.0-20.0); Creatinine, Blood 1.23 mg/dL (0.40-1.00); Globulin, Blood 4.1 g/dL (2.2-4.0); Potassium, Blood 4.2 mmol/L (3.5-5.5); Total Protein, Blood 6.8 g/dL (6.4-8.2)
--- NOTE | 2021-06-06 18:05 | NUR ---
SHIFT SUMMARY: PATIENT MORE ALERT THE DAY WORE ON, SLEPT OFF AND ON. C/O BACK PAIN THAT TYLNEOL IS NOT RELIEVING; PLACED HEATING PAD, REPOSITIONED OFTEN, AND EDUCATED HER THAT, BECAUSE OF HER INITIAL PRESENTATION IN THE ER, HER PAIN MEDICATION OPTIONS ARE VERY LIMITED. R ARM WEAK, DOESN'T MOVE IT MUCH. A&O X 1-2, STILL SLOW TO RESPOND, DOES NOT KNOW DAY OR DATE OR HOW SHE GOT HERE, SLOW TO FOLLOW DIRECTIONS IF AT ALL. INCONTINENT OF B&B, ATTENDS IN PLACE. BM X 2 TODAY, HAD TO HOLD 1400 LACTULOSE D/T SOMNOLENCE. DOES NOT FEED HERSELF. CIWA SCORES HAVE BEEN < 8. DURING TELEPHONE CALL WITH HER S.O., HE STATED THAT HALINA HAS NOT HAD A DRINK IN OVER TWO YEARS; WAS ALSO ASKING ABOUT PROCEDURE FOR LIVER TRANSPLANT AND ASKED HOW HALINA COULD BECOME A CANDIDATE. MAY BENEFIT FROM PT/OT EVALS PRIOR TO D/C.
--- NOTE | 2021-06-06 21:23 | NUR ---
PATIENT CONFUSED REPORTING SHE SAW Melissa CERVANTES AT DOOR WAY. PATIENT REMINDED THERE ARE NO VISITORS ALLOWED AT THIS TIME.
--- NOTE | 2021-06-07 03:06 | NUR ---
SHIFT SUMMARY PATIENT MENTATION IMPROVED SINCE LAST NOC SHIFT. AXOX 3 WITH SOME CONFUSION. REPORTS SEEING SIGNIFICANT OTHER HELEN OUTSIDE HER DOOR AND WANTS HIM TO COME IN. PATIENT REMINDED THERE ARE NO VISITOR ALLOWED AT THE HOSPITAL. PATIENT CALLED OUT MULTIPLE TIMES FOR HELEN TO COME IN. PIV REMAINS INTACT. D5 1/2 NS INFUSING AT 75mL/HR. BEDREST AND ON ROOM AIR STATING 97% ON CONTINUOUS PULSE OXIMETRY. CIWA SCORES 4-5. REPORTED BACK PAIN AND HEATING PAD IN PLACE. VSS/AFEBRILE. DENIES SOB AND N/V. TAKE MEDICATION WHOLE WITH WATER. ZIO PATCH IN PLACE ABELARDO CHEST. CALL LIGHT IN REACH. BED IN LOWEST POSITION AND ALARM ACTIVATED. WILL CONTINUE TO MONITOR UNTIL DAY SHIFT NURSE ASSUMES CARE.
[2021-06-07 05:34] LABS: Albumin, Blood 2.2 g/dL (3.4-5.0); Albumin/Globulin Ratio 0.6 (0.8-1.8); Bilirubin, Total 1.6 mg/dL (0.1-1.0); Bun/Creatinine Ratio 24.2 (12.0-20.0); Calcium, Blood 8.6 mg/dL (8.5-10.1); Creatinine, Blood 1.2 mg/dL (0.40-1.00); Globulin, Blood 3.9 g/dL (2.2-4.0); Potassium, Blood 4.6 mmol/L (3.5-5.5); Total Protein, Blood 6.1 g/dL (6.4-8.2)
--- NOTE | 2021-06-07 16:19 | NUR ---
PATIENT C/O PAIN TO HER BACK AND LOWER ABDOMEN. DISCUSSED THE NEXT TIME HER TYLENOL WOULD BE ABLE TO BE TAKEN. VERBALIZED UNDERSTANDING. WATCHING TV. NO OTHER NEEDS VOICED. WILL MONITOR.
--- NOTE | 2021-06-07 16:34 | NUR ---
PATIENT WAS EVALUATED BY PT AND OT TODAY. AWAKE AND ALERT. PATIENT IS ASSIST X 2 TO BS WITH GAIT BELT MODERATE ASSISTANCE. C/O BACK PAIN AND MEDICATED PER E-MAR OFTEN PRN ORDER SPECIFIES. IVF COMPLETED. SALINE LOCKED. ALERT AND ORIENTED ONLY TO PERSON AND PLACE. CAN STATE THE CORRECT MONTH AND DATE BUT STATES IT IS 2019. CIWA'S Q 4 HOURS IN PROGRESS. WILL MONITOR.
--- NOTE | 2021-06-07 22:21 | NUR ---
Zofran 4mg ODT given for mild nausea
--- NOTE | 2021-06-08 04:47 | NUR ---
patient rested well overnight. had one episode of incontinence of urine and a soft medium sized stool. minimal complaint at bedtime of low back pain (chronic) which was resolved with APAP, and slight nausea later in the evening which responded to ODT Zofran. CIWA scores all night were a 2. Not sure we need to be monitoring for withdrawel any more.
--- NOTE | 2021-06-08 10:36 | NUR ---
ASSISTED LEI SELLER TO CLEAN PATIENT UP AND CHANGE BED AFTER A LARGE BM IN ATTENDS. ROUNDED. PLANS TO D/C HOME WITH HOME HEALTH. AWAITING ORDERS. CALLED PATIENT'S SIGNIFICANT OTHER, CHANDLER "HELEN" AT [phone] TO LET HIM KNOW OF THE DISCHARGE AND THAT HE WOULD GET A CALL ONCE ALL OF THE PAPERWORK AND HH ARE ARRANGED TO PICK HER UP. VERBALIZED UNDERSTANDING.
--- NOTE | 2021-06-08 12:11 | NUR ---
PATIENT INFORMED THAT WE ARE JUST WAITING ON THE DISCHARGE ORDERS TO BE IN THE COMPUTER TO GET HER D/C PAPERWORK TOGETHER AND THAT CARE MANAGEMENT WILL ARRANGE HOME HEALTH/PT PER MD ORDERS. VERBALIZED UNDERSTANDING. PATIENT DRESSED AND READY FOR D/C WHEN ORDERS OBTAINED.
--- NOTE | 2021-06-08 13:25 | NUR ---
PATIENT WORKING WITH PT CURRENTLY. D/C ORDER IN COMPUTER. CHARGE NURSE MADE AWARE.
--- NOTE | 2021-06-08 14:02 | NUR ---
ASSISTED PATIENT TO CHANGE INTO HOME CLOTHING. DISCHARGE INSTRUCTIONS DISCUSSED WITH PATIENT. COPY PLACED IN BAG WITH BELONGINGS. AWAITING HELEN, SIGNIFICANT OTHER/FRIEND TO ARRIVE FOR TRANSPORTATION HOME.
--- NOTE | 2021-06-08 14:24 | NUR ---
AAO X 4. NO COMPLAINTS VOICED. DISCHARGED HOME PER WHEELCHAIR PER PERSONAL VEHICLE WITH SIGNIFICANT OTHER/FRIEND. PERSONAL BELONGINGS WITH PATIENT AT DISCHARGE.
== END 2021-06-08 14:30 | disposition home health service (06) ==
LOC: ER 09:28 → MEDS 09:29 → ER 21:01 → MEDS 21:01
PROVIDERS: Emergency Medicine; Student in an Organized Health Care Education/Training Program; ADMIT Internal Medicine
DX: G92.8 Other toxic encephalopathy (principal); N17.9 Acute kidney failure, unspecified; K70.30 Alcoholic cirrhosis of liver without ascites; I12.9 Hypertensive chronic kidney disease with stage 1 through stage 4 chronic kidney disease, or unspecified chronic kidney disease; N18.30 Chronic kidney disease, stage 3 unspecified; D69.6 Thrombocytopenia, unspecified; E72.20 Disorder of urea cycle metabolism, unspecified; D63.8 Anemia in other chronic diseases classified elsewhere; E88.09 Other disorders of plasma-protein metabolism, not elsewhere classified; J45.909 Unspecified asthma, uncomplicated; E78.5 Hyperlipidemia, unspecified; K21.9 Gastro-esophageal reflux disease without esophagitis; Z91.14 Patient's other noncompliance with medication regimen
CPT/HCPCS: 36415; 51701; 70450; 71045; 80048; 80053; 80076; 81003; 82140; 83690; 83735; 84145; 84484; 85025; 85610; 94762; 96374; 97116; 97161; 97166; 97530; 97535; 99285-25; A9270; J1885; J3411; J7030; J7042; P9612

== ENCOUNTER 2021-06-29 06:43 | Emergency (ER) | payer MEDICARE ==
[~2021-06-29] VITALS: Ht 157.5 cm; Wt 61.2 kg
[~2021-06-29 06:43] MED LIST changes: +Norco 5-325 Ta1 EACH PO
== END 2021-06-29 08:16 | disposition home or self-care (01) ==
LOC: ER 06:43
DX: G89.29 Other chronic pain (principal); M54.50 Low back pain, unspecified; K21.9 Gastro-esophageal reflux disease without esophagitis; J45.909 Unspecified asthma, uncomplicated; Z79.899 Other long term (current) drug therapy
CPT/HCPCS: J1885

== ENCOUNTER 2021-07-18 13:17 | Emergency (ER) | payer OTHER ==
[~2021-07-18] VITALS: Ht 157.5 cm; Wt 61.2 kg
[2021-07-18 13:49] LABS: BASOPHILS ABSOLUTE AUTO 0.05 K/mm3 (0.00-0.23); BASOPHILS PERCENT AUTO 1 % (0-2); EOSINOPHILS ABSOLUTE AUTO 0.24 K/mm3 (0.00-0.68); EOSINOPHILS PERCENT AUTO 5 % (0-6); Hemoglobin 9.6 g/dL (11.5-16.0); IMMATURE GRAN ABSOLUTE AUTO 0.01 K/mm3 (0.00-0.10); IMMATURE GRAN PERCENT AUTO 0 % (0-1); LYMPHOCYTES ABSOLUTE AUTO 0.91 K/mm3 (0.84-5.20); LYMPHOCYTES PERCENT AUTO 19 % (21-46); MONOCYTES ABSOLUTE AUTO 0.39 K/mm3 (0.16-1.47); MONOCYTES PERCENT AUTO 8 % (4-13); Mean Corpuscular HGB 36.9 pg (26.0-34.0); Mean Corpuscular Volume 119 fL (80-100); Mean Platelet Volume 10.1 fL (9.1-12.4); NEUTROPHILS ABSOLUTE AUTO 3.17 K/mm3 (1.96-9.15); NEUTROPHILS PERCENT AUTO 67 % (41-73); RDW Coefficient Variation 16.2 % (11.7-14.2); RDW Standard Deviation 71.7 fL (35.1-46.3); White Blood Cell Count 4.77 K/mm3 (4.00-11.30)
[2021-07-18 13:57] LABS: Platelet Count 89 K/mm3 (150-400)
[2021-07-18 14:28] LABS: Albumin, Blood 2.5 g/dL (3.4-5.0); Albumin/Globulin Ratio 0.6 (0.8-1.8); Bilirubin, Total 1.1 mg/dL (0.1-1.0); Bun/Creatinine Ratio 30.4 (12.0-20.0); Calcium, Blood 8.8 mg/dL (8.5-10.1); Creatinine, Blood 1.25 mg/dL (0.40-1.00); Globulin, Blood 4.1 g/dL (2.2-4.0); Potassium, Blood 5.9 mmol/L (3.5-5.5); Total Protein, Blood 6.6 g/dL (6.4-8.2)
[2021-07-18 16:06] LABS: Source, Urine Clean Catch
[2021-07-18 16:07] LABS: International Normalized Ratio 1.08; Prothrombin Time Results 11.3 Sec (9.7-11.5)
[2021-07-18 16:12] LABS: Appearance, Urine Clear (Clear); Bilirubin, Urine Neg (Neg); Blood, Urine 4+ (Neg); Color, Urine Yellow (P-Yellow); Glucose Qualitative, Urine Neg (Neg); Ketones, Urine Neg (Neg); Leukocyte Esterase, Urine 1+ (Neg); Nitrite, Urine Neg (Neg); Protein, Urine 1+ (Neg); Urobilinogen, Urine NORM (Normal)
[2021-07-18 17:07] LABS: Bacteria Mod /hpf; Red Blood Cells, Urine 25-50 /hpf (0-2); Squamous Epithelial Cells Few /hpf (Few)
[2021-07-18 18:16] LABS: BASOPHILS ABSOLUTE AUTO 0.04 K/mm3 (0.00-0.23); BASOPHILS PERCENT AUTO 1 % (0-2); EOSINOPHILS ABSOLUTE AUTO 0.23 K/mm3 (0.00-0.68); EOSINOPHILS PERCENT AUTO 5 % (0-6); Hematocrit 29.8 % (33.0-51.0); Hemoglobin 9.3 g/dL (11.5-16.0); IMMATURE GRAN ABSOLUTE AUTO 0.02 K/mm3 (0.00-0.10); IMMATURE GRAN PERCENT AUTO 0 % (0-1); LYMPHOCYTES ABSOLUTE AUTO 1.08 K/mm3 (0.84-5.20); LYMPHOCYTES PERCENT AUTO 22 % (21-46); MONOCYTES PERCENT AUTO 8 % (4-13); Mean Corpuscular HGB 36.9 pg (26.0-34.0); Mean Corpuscular HGB Conc 31.2 g/dL (31.5-36.5); Mean Corpuscular Volume 118 fL (80-100); Mean Platelet Volume 9.7 fL (9.1-12.4); NEUTROPHILS ABSOLUTE AUTO 3.19 K/mm3 (1.96-9.15); NEUTROPHILS PERCENT AUTO 64 % (41-73); Platelet Count 82 K/mm3 (150-400); Red Blood Cell Count 2.52 M/mm3 (3.80-5.20); White Blood Cell Count 4.96 K/mm3 (4.00-11.30)
== END 2021-07-18 19:23 | disposition home or self-care (01) ==
LOC: ER 13:17
PROVIDERS: Emergency Medicine; Physician Assistant
DX: D69.6 Thrombocytopenia, unspecified (principal); I12.9 Hypertensive chronic kidney disease with stage 1 through stage 4 chronic kidney disease, or unspecified chronic kidney disease; N18.30 Chronic kidney disease, stage 3 unspecified; K21.9 Gastro-esophageal reflux disease without esophagitis; Z79.899 Other long term (current) drug therapy
CPT/HCPCS: 80053; 81001; 85025; 85610; 86850; 86900; 86901; 87077; 87086; 87186; 93005; 93010; 99284-25

== ENCOUNTER 2021-07-21 09:57 | Emergency (ER) | payer MEDICARE, OTHER ==
[~2021-07-21] VITALS: Ht 157.5 cm; Wt 59.0 kg
[2021-07-21 10:23] LABS: BASOPHILS ABSOLUTE AUTO 0.04 K/mm3 (0.00-0.23); BASOPHILS PERCENT AUTO 1 % (0-2); EOSINOPHILS ABSOLUTE AUTO 0.21 K/mm3 (0.00-0.68); EOSINOPHILS PERCENT AUTO 5 % (0-6); Hematocrit 31.1 % (33.0-51.0); Hemoglobin 9.6 g/dL (11.5-16.0); IMMATURE GRAN ABSOLUTE AUTO 0.01 K/mm3 (0.00-0.10); IMMATURE GRAN PERCENT AUTO 0 % (0-1); LYMPHOCYTES ABSOLUTE AUTO 0.96 K/mm3 (0.84-5.20); LYMPHOCYTES PERCENT AUTO 24 % (21-46); MONOCYTES ABSOLUTE AUTO 0.25 K/mm3 (0.16-1.47); MONOCYTES PERCENT AUTO 6 % (4-13); Mean Corpuscular HGB 36.6 pg (26.0-34.0); Mean Corpuscular HGB Conc 30.9 g/dL (31.5-36.5); Mean Corpuscular Volume 119 fL (80-100); Mean Platelet Volume 9.5 fL (9.1-12.4); NEUTROPHILS ABSOLUTE AUTO 2.62 K/mm3 (1.96-9.15); NEUTROPHILS PERCENT AUTO 64 % (41-73); Platelet Count 103 K/mm3 (150-400); RDW Coefficient Variation 16.9 % (11.7-14.2); RDW Standard Deviation 74.6 fL (35.1-46.3); Red Blood Cell Count 2.62 M/mm3 (3.80-5.20); White Blood Cell Count 4.09 K/mm3 (4.00-11.30)
[2021-07-21 10:35] LABS: Albumin, Blood 2.7 g/dL (3.4-5.0); Albumin/Globulin Ratio 0.7 (0.8-1.8); Bilirubin, Total 1.2 mg/dL (0.1-1.0); Bun/Creatinine Ratio 25.6 (12.0-20.0); Creatinine, Blood 1.33 mg/dL (0.40-1.00); Globulin, Blood 4.1 g/dL (2.2-4.0); Magnesium, Blood 1.5 mg/dL (1.6-2.4); Potassium, Blood 5.8 mmol/L (3.5-5.5); Total Protein, Blood 6.8 g/dL (6.4-8.2)
[2021-07-21] MEDS ORDERED: CEFD300 PO (11:31)
[2021-12-16] MEDS ORDERED: PRAHYD1AEA PR (19:46)
== END 2021-07-21 12:16 | disposition home or self-care (01) ==
LOC: ER 09:57
PROVIDERS: Emergency Medicine
DX: N39.0 Urinary tract infection, site not specified (principal); E83.42 Hypomagnesemia; E87.5 Hyperkalemia; N28.9 Disorder of kidney and ureter, unspecified; D64.9 Anemia, unspecified; E78.00 Pure hypercholesterolemia, unspecified; K21.9 Gastro-esophageal reflux disease without esophagitis; I12.9 Hypertensive chronic kidney disease with stage 1 through stage 4 chronic kidney disease, or unspecified chronic kidney disease; N18.30 Chronic kidney disease, stage 3 unspecified
CPT/HCPCS: 80053; 83735; 85025; 96374; 99283-25; A9270; J0696

== ENCOUNTER 2021-08-24 16:47 | Emergency (ER) | payer MEDICARE, OTHER ==
[~2021-08-24] VITALS: Ht 157.5 cm; Wt 61.2 kg
[2021-08-24 17:36] LABS: BASOPHILS ABSOLUTE AUTO 0.05 K/mm3 (0.00-0.23); BASOPHILS PERCENT AUTO 1 % (0-2); EOSINOPHILS ABSOLUTE AUTO 0.27 K/mm3 (0.00-0.68); EOSINOPHILS PERCENT AUTO 6 % (0-6); Hematocrit 27.6 % (33.0-51.0); Hemoglobin 8.9 g/dL (11.5-16.0); Mean Corpuscular HGB 37.6 pg (26.0-34.0); Mean Corpuscular HGB Conc 32.2 g/dL (31.5-36.5); Mean Corpuscular Volume 117 fL (80-100); Platelet Count 87 K/mm3 (150-400); RDW Coefficient Variation 16.9 % (11.7-14.2); RDW Standard Deviation 71.7 fL (35.1-46.3); Red Blood Cell Count 2.37 M/mm3 (3.80-5.20); White Blood Cell Count 4.32 K/mm3 (4.00-11.30)
[2021-08-24 17:45] LABS: IMMATURE GRAN ABSOLUTE AUTO 0.01 K/mm3 (0.00-0.10); IMMATURE GRAN PERCENT AUTO 0 % (0-1); LYMPHOCYTES ABSOLUTE AUTO 1.19 K/mm3 (0.84-5.20); LYMPHOCYTES PERCENT AUTO 28 % (21-46); MONOCYTES PERCENT AUTO 12 % (4-13); NEUTROPHILS PERCENT AUTO 53 % (41-73)
[2021-08-24 17:54] LABS: Albumin, Blood 2.9 g/dL (3.4-5.0); Albumin/Globulin Ratio 0.7 (0.8-1.8); Calcium, Blood 8.8 mg/dL (8.5-10.1); Creatinine, Blood 1.04 mg/dL (0.40-1.00); Globulin, Blood 3.9 g/dL (2.2-4.0); Potassium, Blood 4.4 mmol/L (3.5-5.5); Total Protein, Blood 6.8 g/dL (6.4-8.2)
[2021-08-24] MEDS ORDERED: Kristalose20 GM PO (19:59)
== END 2021-08-24 20:20 | disposition home or self-care (01) ==
LOC: ER 16:47
PROVIDERS: Physician Assistant
DX: K72.90 Hepatic failure, unspecified without coma (principal); E72.20 Disorder of urea cycle metabolism, unspecified; K71.3 Toxic liver disease with chronic persistent hepatitis; Z79.899 Other long term (current) drug therapy; K21.9 Gastro-esophageal reflux disease without esophagitis; J45.909 Unspecified asthma, uncomplicated; I12.9 Hypertensive chronic kidney disease with stage 1 through stage 4 chronic kidney disease, or unspecified chronic kidney disease; E78.00 Pure hypercholesterolemia, unspecified; N18.30 Chronic kidney disease, stage 3 unspecified
CPT/HCPCS: 36415; 80053; 82140; 83690; 83735; 85025; 99284

== ENCOUNTER 2021-09-12 05:37 | Inpatient (IN) | payer MEDICARE, OTHER ==
[~2021-09-12] VITALS: Ht 157.5 cm; Wt 58.1 kg
[2021-09-12 07:36] LABS: BASOPHILS ABSOLUTE AUTO 0.04 K/mm3 (0.00-0.23); BASOPHILS PERCENT AUTO 0 % (0-2); EOSINOPHILS PERCENT AUTO 1 % (0-6); Hematocrit 22.1 % (33.0-51.0); Hemoglobin 7.2 g/dL (11.5-16.0); IMMATURE GRAN ABSOLUTE AUTO 0.04 K/mm3 (0.00-0.10); IMMATURE GRAN PERCENT AUTO 0 % (0-1); LYMPHOCYTES ABSOLUTE AUTO 0.57 K/mm3 (0.84-5.20); LYMPHOCYTES PERCENT AUTO 4 % (21-46); MONOCYTES ABSOLUTE AUTO 0.65 K/mm3 (0.16-1.47); MONOCYTES PERCENT AUTO 5 % (4-13); Mean Corpuscular HGB 38.7 pg (26.0-34.0); Mean Corpuscular HGB Conc 32.6 g/dL (31.5-36.5); Mean Corpuscular Volume 119 fL (80-100); Mean Platelet Volume 10.4 fL (9.1-12.4); NEUTROPHILS ABSOLUTE AUTO 11.58 K/mm3 (1.96-9.15); NEUTROPHILS PERCENT AUTO 89 % (41-73); Platelet Count 69 K/mm3 (150-400); RDW Coefficient Variation 16.4 % (11.7-14.2); RDW Standard Deviation 71.6 fL (35.1-46.3); Red Blood Cell Count 1.86 M/mm3 (3.80-5.20); White Blood Cell Count 12.98 K/mm3 (4.00-11.30)
[2021-09-12 07:48] LABS: Albumin, Blood 2.6 g/dL (3.4-5.0); Albumin/Globulin Ratio 0.7 (0.8-1.8); Calcium, Blood 8.6 mg/dL (8.5-10.1); Creatinine, Blood 1.23 mg/dL (0.40-1.00); Globulin, Blood 3.5 g/dL (2.2-4.0); Potassium, Blood 4.6 mmol/L (3.5-5.5); Total Protein, Blood 6.1 g/dL (6.4-8.2)
[2021-09-12 09:46] LABS: Source, Urine Voided
[2021-09-12 09:55] LABS: Bilirubin, Urine Neg (Neg); Blood, Urine 1+ (Neg); Glucose Qualitative, Urine Neg (Neg); Ketones, Urine Neg (Neg); Leukocyte Esterase, Urine 1+ (Neg); Nitrite, Urine Neg (Neg); Protein, Urine Neg (Neg); Specific Gravity, Urine 1.015 (1.003-1.022); Urobilinogen, Urine NORM (Normal)
[2021-09-12 10:06] LABS: Appearance, Urine Hazy (Clear); Bacteria Rare /hpf; Color, Urine Yellow (P-Yellow); Red Blood Cells, Urine 0-2 /hpf (0-2); Squamous Epithelial Cells Few /hpf (Few)
[2021-09-12 15:35] LABS: Base Excess Venous -8.4 mmol/L; PCO2 Venous 34.1 mmHg (38-42); pH Blood Venous 7.32 (7.34-7.37)
[2021-09-12] MEDS ORDERED: GABA100 (17:53)
[2021-09-12 18:11] LABS: Hematocrit 24.3 % (33.0-51.0)
--- NOTE | 2021-09-12 19:08 | NUR ---
History, Chart, Medications and Allergies reviewed before start of procedure.Pre-Op teaching done. Pt verbalizes understanding.NPO
--- NOTE | 2021-09-12 19:22 | NUR ---
PT ARRIVED TO FLOOR DENIED PAIN TO BACK. REPORTED HAS HAD BLACK STOOLS FOR TWO DAYS. DR LU IN TO SEE PT, TOOK PT DOWN FOR SCOPE. PT ABD DISTENDED, HAS HX OF CIRRHOSIS, REQUESTED PARACENTESIS. PT HAS HX OF MULTIPLE FALLS AT HOME, USES WALKER. EDUCATED PT ON CALLING BEFORE GETTING UP AND UTILIZED BED ALARM FOR SAFETY WHILE PT WAS ON FLOOR. REPORT GIVEN TO ONCOMING SHIFT.
--- NOTE | 2021-09-12 19:32 | NUR ---
09/12/211931 Larisa Byrne History, Chart, Medications and Allergies reviewed before start of procedure.MONITOR INTACT WITH CONTINUOUS PULSE OXIMETRY AND INTERMITTENT BP.DR THIBODEAUX PROVIDING ANESTHESIA TIVA. POM PLACED BITE BLOCK.
[2021-09-13 02:15] LABS: BASOPHILS ABSOLUTE AUTO 0.04 K/mm3 (0.00-0.23); BASOPHILS PERCENT AUTO 0 % (0-2); EOSINOPHILS ABSOLUTE AUTO 0.16 K/mm3 (0.00-0.68); EOSINOPHILS PERCENT AUTO 1 % (0-6); Hematocrit 22.8 % (33.0-51.0); Hemoglobin 7.5 g/dL (11.5-16.0); IMMATURE GRAN ABSOLUTE AUTO 0.05 K/mm3 (0.00-0.10); IMMATURE GRAN PERCENT AUTO 0 % (0-1); LYMPHOCYTES ABSOLUTE AUTO 0.89 K/mm3 (0.84-5.20); LYMPHOCYTES PERCENT AUTO 7 % (21-46); MONOCYTES ABSOLUTE AUTO 0.59 K/mm3 (0.16-1.47); MONOCYTES PERCENT AUTO 5 % (4-13); Mean Corpuscular HGB 37.9 pg (26.0-34.0); Mean Corpuscular HGB Conc 32.9 g/dL (31.5-36.5); Mean Corpuscular Volume 115 fL (80-100); Mean Platelet Volume 10.5 fL (9.1-12.4); NEUTROPHILS ABSOLUTE AUTO 10.81 K/mm3 (1.96-9.15); NEUTROPHILS PERCENT AUTO 86 % (41-73); Platelet Count 59 K/mm3 (150-400); RDW Coefficient Variation 19.9 % (11.7-14.2); RDW Standard Deviation 82.3 fL (35.1-46.3); Red Blood Cell Count 1.98 M/mm3 (3.80-5.20); White Blood Cell Count 12.54 K/mm3 (4.00-11.30)
[2021-09-13 02:27] LABS: International Normalized Ratio 1.27; Prothrombin Time Results 13.1 Sec (9.7-11.5)
[2021-09-13 02:32] LABS: Albumin, Blood 2.5 g/dL (3.4-5.0); Albumin/Globulin Ratio 0.7 (0.8-1.8); Bilirubin, Total 1.7 mg/dL (0.1-1.0); Bun/Creatinine Ratio 28.6 (12.0-20.0); Calcium, Blood 8.5 mg/dL (8.5-10.1); Creatinine, Blood 1.05 mg/dL (0.40-1.00); Globulin, Blood 3.5 g/dL (2.2-4.0); Magnesium, Blood 1.8 mg/dL (1.6-2.4); Potassium, Blood 4.5 mmol/L (3.5-5.5)
--- NOTE | 2021-09-13 04:13 | NUR ---
SUMMARY PT SLEPT ON AND OFF T/O THE NIGHT. PT HAD MULTIPLE BM'S DURING THE NIGHT. PT BECOMING MORE ALERT T/O THE SHIFT. RESTING WELL AT THIS TIME, CALL LIGHT IN REACH.
[2021-09-13 10:29] LABS: Hematocrit 22.9 % (33.0-51.0); Hemoglobin 7.5 g/dL (11.5-16.0)
[2021-09-13 18:18] LABS: Hematocrit 23.1 % (33.0-51.0); Hemoglobin 7.6 g/dL (11.5-16.0)
--- NOTE | 2021-09-13 18:55 | NUR ---
SHIFT SUMMARY PT HAD EGD YESTERDAY AND STILL HAVING SOME COFFEE GROUND STOOLS. PT RELUCTANT TO TAKE LACTULOSE BUT AGREED TO TAKE IT LONG SHE ONLY HAS 3 BM'S A DAY. STAND BY ASSIST IN THE ROOM. ABD DISTENDED FROM ASCITES. VSS. WILL REPORT TO AYANNA RN.
--- NOTE | 2021-09-14 04:26 | NUR ---
SHIFT SUMMARY PT AOX2-3. GETS IMPULSIVE AT TIMES, BED ALARM ON. COOPERATIVE WITH CARE. PT WAS WILLING TO TAKE ENULOSE LAST NIGHT. PT HAD 3 LIQ BROWN BOWEL MOVEMENT. PASSING FLATUS. VOIDING WITHOUT DIFFICULTY. AMBULATES WITH FWW, SBA. CALL LIGHT WITHIN REACH. PT USE HER CALL LIGHT INTERMITTENTLY. VSS. DENIES DIZZINESS. WILL PROVIDE REPORT TO ONCOMING NURSE.
[2021-09-14] MEDS ORDERED: PANT40 PO (14:11)
[2021-09-14] MEDS ORDERED: Inderal40 MG PO (14:12)
[2021-09-14] MEDS ORDERED: SPIR50 PO (14:12)
[2021-09-14] MEDS ORDERED: Cefpodoxime Pr100 MG PO (14:42)
--- NOTE | 2021-09-14 15:06 | NUR ---
DISCHARGE SUMMARY PT'S IV DCED. PT'S PRESCRIPTIONS FAXED TO PHARMACY AND PT EDUCATION PROVIDED. PT ACKNOWLEDGED UNDERSTANDING OF ALL DISCHARGE PAPERWORK AND SIGNED WHERE APPROPRIATE. PT WAS ESCORTED BY STAFF VIA WHEELCHAIR TO PERSONAL VEHICLE. PT ASSISTED INTO VEHICLE W/O INCIDENT AND LEFT POV.
== END 2021-09-14 16:17 | disposition home or self-care (01) | DRG 378 ==
LOC: ER 05:37 → SURS 14:03
PROVIDERS: Emergency Medicine; Internal Medicine Gastroenterology; ADMIT Family Medicine
PROC: 30233N1 Transfusion of Nonautologous Red Blood Cells into Peripheral Vein, Percutaneous Approach (ICD-10-PCS; principal; 2021-09-12 18:00)
PROC: 0W3P8ZZ Control Bleeding in Gastrointestinal Tract, Via Natural or Artificial Opening Endoscopic (ICD-10-PCS; 2021-09-12 18:00)
DX: K31.811 Angiodysplasia of stomach and duodenum with bleeding (principal); D62 Acute posthemorrhagic anemia; E87.2 Acidosis; N39.0 Urinary tract infection, site not specified; I78.1 Nevus, non-neoplastic; K70.30 Alcoholic cirrhosis of liver without ascites; K21.9 Gastro-esophageal reflux disease without esophagitis; K44.9 Diaphragmatic hernia without obstruction or gangrene; J45.909 Unspecified asthma, uncomplicated; B96.89 Other specified bacterial agents as the cause of diseases classified elsewhere; D69.59 Other secondary thrombocytopenia; D72.829 Elevated white blood cell count, unspecified; D50.0 Iron deficiency anemia secondary to blood loss (chronic); E78.00 Pure hypercholesterolemia, unspecified; E78.5 Hyperlipidemia, unspecified; I35.0 Nonrheumatic aortic (valve) stenosis; F41.9 Anxiety disorder, unspecified; I12.9 Hypertensive chronic kidney disease with stage 1 through stage 4 chronic kidney disease, or unspecified chronic kidney disease; N18.30 Chronic kidney disease, stage 3 unspecified; F10.10 Alcohol abuse, uncomplicated; Z98.890 Other specified postprocedural states; Z79.899 Other long term (current) drug therapy; Z71.89 Other specified counseling
CPT/HCPCS: 36415; 36430; 80053; 81001; 82140; 82272; 82803; 83690; 83735; 85014; 85018; 85025; 85610; 86850; 86900; 86901; 86923; 87077; 87086; 87186; 93005; 93010; 96374; 97116; 97162; 97165; 97535; 99285-25; A9270; C9113; J0696; J2370; J2704; J3010; J7030; J7120; P9016

== ENCOUNTER 2021-11-05 17:19 | Observation (INO) | payer MEDICARE, OTHER ==
[~2021-11-05] VITALS: Ht 157.5 cm; Wt 60.7 kg
[~2021-11-05 17:19] MED LIST changes: +Cefpodoxime Pr100 MG PO; +GABA100; +SPIR50 PO
[2021-11-05 17:59] LABS: BASOPHILS ABSOLUTE AUTO 0.05 K/mm3 (0.00-0.23); BASOPHILS PERCENT AUTO 1 % (0-2); EOSINOPHILS ABSOLUTE AUTO 0.36 K/mm3 (0.00-0.68); EOSINOPHILS PERCENT AUTO 8 % (0-6); Hematocrit 20.8 % (33.0-51.0); Hemoglobin 6.7 g/dL (11.5-16.0); IMMATURE GRAN ABSOLUTE AUTO 0.01 K/mm3 (0.00-0.10); IMMATURE GRAN PERCENT AUTO 0 % (0-1); LYMPHOCYTES ABSOLUTE AUTO 1.21 K/mm3 (0.84-5.20); LYMPHOCYTES PERCENT AUTO 28 % (21-46); MONOCYTES ABSOLUTE AUTO 0.41 K/mm3 (0.16-1.47); MONOCYTES PERCENT AUTO 9 % (4-13); Mean Corpuscular HGB 35.4 pg (26.0-34.0); Mean Corpuscular HGB Conc 32.2 g/dL (31.5-36.5); Mean Corpuscular Volume 110 fL (80-100); Mean Platelet Volume 10.9 fL (9.1-12.4); NEUTROPHILS ABSOLUTE AUTO 2.31 K/mm3 (1.96-9.15); NEUTROPHILS PERCENT AUTO 53 % (41-73); Platelet Count 79 K/mm3 (150-400); RDW Coefficient Variation 14.8 % (11.7-14.2); RDW Standard Deviation 59.1 fL (35.1-46.3); Red Blood Cell Count 1.89 M/mm3 (3.80-5.20); White Blood Cell Count 4.35 K/mm3 (4.00-11.30)
[2021-11-05 18:14] LABS: Source, Urine Clean Catch
[2021-11-05 18:16] LABS: Albumin, Blood 2.4 g/dL (3.4-5.0); Albumin/Globulin Ratio 0.6 (0.8-1.8); Bilirubin, Direct 0.6 mg/dL (0.0-0.3); Bilirubin, Indirect 0.7 mg/dL (0.1-0.7); Bilirubin, Total 1.3 mg/dL (0.1-1.0); Bun/Creatinine Ratio 23.6 (12.0-20.0); Calcium, Blood 8.5 mg/dL (8.5-10.1); Creatinine, Blood 1.06 mg/dL (0.40-1.00); Globulin, Blood 3.7 g/dL (2.2-4.0); Potassium, Blood 3.8 mmol/L (3.5-5.5); Total Protein, Blood 6.1 g/dL (6.4-8.2)
[2021-11-05 19:29] LABS: Appearance, Urine Clear (Clear); Bilirubin, Urine Neg (Neg); Blood, Urine Neg (Neg); Glucose Qualitative, Urine Neg (Neg); Ketones, Urine 1+ (Neg); Leukocyte Esterase, Urine Neg (Neg); Nitrite, Urine Neg (Neg); Protein, Urine Neg (Neg); Specific Gravity, Urine 1.015 (1.003-1.022); Urobilinogen, Urine NORM (Normal)
[2021-11-05 19:30] LABS: Color, Urine Yellow (P-Yellow)
[2021-11-05 22:12] LABS: Percent Saturation 12.2 % (15.0-50.0)
--- NOTE | 2021-11-06 01:15 | NUR ---
ADMIT NOTE 66 YR OLD FEMALE ADMITTED TO FLOOR FROM THE ED WITH DX OF HEPATIC ENCEPHALOPATHY. HX LIVER FAILURE. ED RN VOICED SOME ATTEMPTS TO GET OUT OF BED AND HAD A SITTER TO WATCH HER. CHARGE NURSE NOTIFIED, WILL ACCEPT PT AND ASSESS IF NEEDS TO GO TO THE SCU FOR CLOSER OBS. PT HAS GOTTEN OUT OF BED MULTIPLE TIMES TO "GO TO THE BATHROM", DIFFIVULT TO REDIRECT. IVF INFUSING. ORIENTED TO USE OF CALL LIGHT, BUT DOES NOT USE IT. ISOLATION PRECAUTIONS MAINTAINED (HX VRE). WILL CALL CHARGE NURSE RE POSSIBLE TRANSFER TO THE SCU. CALL LIGHT IN REEACH. BED ALARM ON
--- NOTE | 2021-11-06 04:54 | NUR ---
SHIFT SUMMARY PT WAS TRANSFERRED FROM 60 DUE TO HER CONSTANTLY GETTING OUT OF BED AND BEING NON REDIRECTABLE. PT HAS BEEN RESTING IN BED. SHE WAS ABLE TO USE THE BEDSIDE COMMODE AND HAVE A BM AND PEE AND HAS FELT "MUCH BETTER". SHE IS AXO2. DENIES PAIN OR SOB. BED IN LOWEST POSITION, BED ALARM ON, AND CALL LIGHT IN REACH.
[2021-11-06 06:23] LABS: BASOPHILS ABSOLUTE AUTO 0.03 K/mm3 (0.00-0.23); BASOPHILS PERCENT AUTO 1 % (0-2); EOSINOPHILS ABSOLUTE AUTO 0.32 K/mm3 (0.00-0.68); EOSINOPHILS PERCENT AUTO 8 % (0-6); Hemoglobin 8.6 g/dL (11.5-16.0); IMMATURE GRAN ABSOLUTE AUTO 0.01 K/mm3 (0.00-0.10); IMMATURE GRAN PERCENT AUTO 0 % (0-1); LYMPHOCYTES ABSOLUTE AUTO 0.86 K/mm3 (0.84-5.20); LYMPHOCYTES PERCENT AUTO 21 % (21-46); MONOCYTES ABSOLUTE AUTO 0.31 K/mm3 (0.16-1.47); MONOCYTES PERCENT AUTO 8 % (4-13); Mean Corpuscular HGB 33.5 pg (26.0-34.0); Mean Corpuscular HGB Conc 33.1 g/dL (31.5-36.5); Mean Platelet Volume 10.3 fL (9.1-12.4); NEUTROPHILS ABSOLUTE AUTO 2.56 K/mm3 (1.96-9.15); NEUTROPHILS PERCENT AUTO 63 % (41-73); Platelet Count 61 K/mm3 (150-400); RDW Coefficient Variation 20.4 % (11.7-14.2); RDW Standard Deviation 75.1 fL (35.1-46.3); Red Blood Cell Count 2.57 M/mm3 (3.80-5.20); White Blood Cell Count 4.09 K/mm3 (4.00-11.30)
[2021-11-06 06:37] LABS: Mean Corpuscular Volume 101 fL (80-100)
[2021-11-06 06:48] LABS: Albumin, Blood 2.4 g/dL (3.4-5.0); Albumin/Globulin Ratio 0.7 (0.8-1.8); Bilirubin, Total 2.1 mg/dL (0.1-1.0); Bun/Creatinine Ratio 20.9 (12.0-20.0); Calcium, Blood 8.5 mg/dL (8.5-10.1); Creatinine, Blood 1.15 mg/dL (0.40-1.00); Globulin, Blood 3.6 g/dL (2.2-4.0); Magnesium, Blood 1.7 mg/dL (1.6-2.4); Phosphorus, Blood 3.3 mg/dL (2.5-4.9)
--- NOTE | 2021-11-06 17:16 | NUR ---
SHIFT SUMMARY PATIENT DENIES PAIN, NAUSEA AND SHORTNESS OF BREATH. PATIENT IS A SBA TO THE BSC. PATIENT WAS A&O X1 MOST OF SHIFT, DOES NOT FOLLOW DIRECTIONS WELL, EASILY REDIRECTED HOWEVER. PATIENT HAD VISITOR IN AFTERNOON. PATIENT PLACED ON CAMERA DUE TO HIGH FALL RISK, PATIENT NOT ABLE TO FOLLOW DIRECTIONS, AND PATIENT BEING UNSTEADY. PATIENT EATING AND DRINKING WELL. NEW ORDERS FOR LACTULOSE TID. DOSE GIVEN IN AFTERNOON, PATIENT HAD 5 LOOSE BMS AFTER. GI CONSULT IN AFTERNOON, NEW ORDERS FOR NPO AFTER MIDNIGHT, EXCEPT FOR MEDS AND ICE CHIPS. SCOPE TOMORROW. PATIENT PLEASANT AND COOPERATIVE WITH CARE.
[2021-11-07 04:59] LABS: Hematocrit 24.9 % (33.0-51.0); Hemoglobin 8.1 g/dL (11.5-16.0); Mean Corpuscular HGB 33.2 pg (26.0-34.0); Mean Corpuscular HGB Conc 32.5 g/dL (31.5-36.5); Mean Corpuscular Volume 102 fL (80-100); Mean Platelet Volume 9.6 fL (9.1-12.4); Platelet Count 61 K/mm3 (150-400); RDW Coefficient Variation 18.8 % (11.7-14.2); RDW Standard Deviation 70.5 fL (35.1-46.3); Red Blood Cell Count 2.44 M/mm3 (3.80-5.20); White Blood Cell Count 3.38 K/mm3 (4.00-11.30)
--- NOTE | 2021-11-07 05:03 | NUR ---
SHIFT SUMMARY PT HAS REMAINED SLEEPING IN HER ROOM ALL NIGHT. SHE HAS NOT GOTTEN OUT OF BED AND HAS USED HER CALL LIGHT APPROPRIATELY. SHE IS AXO X2 AND DOES NOT COMPLAIN OF PAIN. SHE IS COOPERATIVE WITH CARE. NO ACUTE CHANGES THIS SHIFT. BED IN LOWEST POSITION AND CALL LIGHT IN REACH.
[2021-11-07 05:17] LABS: International Normalized Ratio 1.28; Prothrombin Time Results 13.2 Sec (9.7-11.5)
[2021-11-07 05:22] LABS: Albumin, Blood 2.3 g/dL (3.4-5.0); Albumin/Globulin Ratio 0.7 (0.8-1.8); Bilirubin, Total 1.3 mg/dL (0.1-1.0); Bun/Creatinine Ratio 20.3 (12.0-20.0); Calcium, Blood 8.4 mg/dL (8.5-10.1); Creatinine, Blood 1.18 mg/dL (0.40-1.00); Globulin, Blood 3.4 g/dL (2.2-4.0); Magnesium, Blood 1.6 mg/dL (1.6-2.4); Potassium, Blood 3.9 mmol/L (3.5-5.5); Total Protein, Blood 5.7 g/dL (6.4-8.2)
[2021-11-07 05:29] LABS: BASOPHILS ABSOLUTE MAN 0.06 K/mm3 (0.00-0.23); BASOPHILS PERCENT MAN 2 % (0-2); EOSINOPHILS ABSOLUTE MAN 0.54 K/mm3 (0.00-0.68); EOSINOPHILS PERCENT MAN 16 % (0-6); LYMPHOCYTES ABSOLUTE MAN 0.47 K/mm3 (0.84-5.20); LYMPHOCYTES PERCENT MAN 14 % (21-46); MONOCYTES ABSOLUTE MAN 0.06 K/mm3 (0.16-1.47); MONOCYTES PERCENT MAN 2 % (4-13); NEUTROPHILS ABSOLUTE MAN 2.23 K/mm3 (1.96-9.15); SEG NEUTROPHILS PERCENT MAN 66 % (41-73); TOTAL CELLS COUNTED 100
--- NOTE | 2021-11-07 08:00 | NUR ---
pt laying in bed watching tv, she is a/ox2 - 3 this am, pleasant and cooperative with care, follows commands well, denies pain, states she feels fine, lungs are clear in upper rao, a bit of a wheeze in bases, currently on r/a, resp even and unlabored, no cough noted, hrr, loud murmur noted, she reports has been there a long time, btx4, abd round soft nontender, a bit of acites per report, voids without diff, skin c/w/d, toni valladares, steady on her feet this am, takes po meds without diff, will keep npo for possible egd, call light in reach.
--- NOTE | 2021-11-07 18:20 | NUR ---
pt was kept npo for breakfast and lunch waiting on an egd, her family came in and she had a few chocolate raisins, they cancelled the egd for today, came to see her, and rescheduled for tomorrow, will keep npo after mid, she did get to eat dinner, no further changes this shift. call light in reach.
--- NOTE | 2021-11-08 04:51 | NUR ---
MERRY GO ROUND OPERATOR SUMMARY ADMITTED FOR HEPATIC ENCEPHALOPATHY. THE PT IS A DNR. SHE IS TO HAVE AN EGD TODAY AND HAS BEEN NPO SINCE MIDNIGHT. THE PATIENT IS ALERT AND ORIENTED X3-4, SOMETIMES CONFUSED DURING THE NIGHT. SHE IS STEADY ON HER FEET AND HAS BEEN UP TO THE BATHROOM MULTIPLE TIMES THROUGHOUT THE SHIFT DUE TO RECEIVING LACTULOSE. SHE IS IMPULSIVE AND DOES NOT USE HER CALL LIGHT SO BED ALARM HAS BEEN ON. SHE DENIED ANY COMPLAINTS OF ACUTE PAIN AND HAS SLEPT THROUGHOUT THE SHIFT.
[2021-11-08 06:02] LABS: BASOPHILS ABSOLUTE AUTO 0.04 K/mm3 (0.00-0.23); BASOPHILS PERCENT AUTO 1 % (0-2); EOSINOPHILS ABSOLUTE AUTO 0.32 K/mm3 (0.00-0.68); EOSINOPHILS PERCENT AUTO 10 % (0-6); Hematocrit 25.8 % (33.0-51.0); Hemoglobin 8.1 g/dL (11.5-16.0); IMMATURE GRAN ABSOLUTE AUTO 0.01 K/mm3 (0.00-0.10); IMMATURE GRAN PERCENT AUTO 0 % (0-1); LYMPHOCYTES ABSOLUTE AUTO 0.83 K/mm3 (0.84-5.20); LYMPHOCYTES PERCENT AUTO 26 % (21-46); MONOCYTES ABSOLUTE AUTO 0.36 K/mm3 (0.16-1.47); MONOCYTES PERCENT AUTO 11 % (4-13); Mean Corpuscular HGB 33.5 pg (26.0-34.0); Mean Corpuscular HGB Conc 31.4 g/dL (31.5-36.5); Mean Platelet Volume 10.7 fL (9.1-12.4); NEUTROPHILS ABSOLUTE AUTO 1.61 K/mm3 (1.96-9.15); NEUTROPHILS PERCENT AUTO 51 % (41-73); Platelet Count 69 K/mm3 (150-400); RDW Coefficient Variation 18.1 % (11.7-14.2); RDW Standard Deviation 71.3 fL (35.1-46.3); Red Blood Cell Count 2.42 M/mm3 (3.80-5.20); White Blood Cell Count 3.17 K/mm3 (4.00-11.30)
[2021-11-08 06:11] LABS: Mean Corpuscular Volume 107 fL (80-100)
[2021-11-08 06:18] LABS: Albumin, Blood 2.3 g/dL (3.4-5.0); Albumin/Globulin Ratio 0.6 (0.8-1.8); Bilirubin, Total 0.9 mg/dL (0.1-1.0); Bun/Creatinine Ratio 18.5 (12.0-20.0); Calcium, Blood 8.3 mg/dL (8.5-10.1); Creatinine, Blood 1.19 mg/dL (0.40-1.00); Globulin, Blood 3.7 g/dL (2.2-4.0); Potassium, Blood 3.8 mmol/L (3.5-5.5)
[2021-11-08 10:03] LABS: SARS-Cov-2 (COVID-19) PCR, MMC NEGATIVE (NEGATIVE)
--- NOTE | 2021-11-08 14:06 | NUR ---
11/08/21 1406 Akiko Huggins MONITOR INTACT WITH CONTINUOUS PULSE OXIMETRY AND INTERMITTENT BP. O2 VIA N/C INTACT THROUGHOUT SEDATION/PROCEDURE. 3-LEAD EKG REVIEWED WITH PHYSICIAN PRIOR TO START OF PROCEDURE. See Anesthesia record.
--- NOTE | 2021-11-08 17:42 | NUR ---
PATIENT DISCHARGED TO HOME WITH Melissa CERVANTES. IV SALINE LOCK REMOVED WITHOUT INCIDENT. VERBALIZED UNDERSTANDING OF D/C INSTRUCTIONS. HAS PCP APPT ON NOVEMBER 22. OFF UNIT VIA W/C AT 1730. NO PERSONAL BELONGINGS LEFT BEHIND IN ROOM.
== END 2021-11-08 17:32 | disposition home or self-care (01) ==
LOC: ER 17:19 → MEDS 17:20 → ER 21:24 → MEDS 22:58
PROVIDERS: Family Medicine; Hospitalist; Student in an Organized Health Care Education/Training Program; ADMIT Internal Medicine
DX: K70.31 Alcoholic cirrhosis of liver with ascites (principal); K76.6 Portal hypertension; K31.89 Other diseases of stomach and duodenum; K44.9 Diaphragmatic hernia without obstruction or gangrene; K31.819 Angiodysplasia of stomach and duodenum without bleeding; K72.10 Chronic hepatic failure without coma; D63.8 Anemia in other chronic diseases classified elsewhere; E72.20 Disorder of urea cycle metabolism, unspecified; E87.0 Hyperosmolality and hypernatremia; Z66 Do not resuscitate; K21.9 Gastro-esophageal reflux disease without esophagitis; J45.909 Unspecified asthma, uncomplicated; I12.9 Hypertensive chronic kidney disease with stage 1 through stage 4 chronic kidney disease, or unspecified chronic kidney disease; N18.30 Chronic kidney disease, stage 3 unspecified; E78.5 Hyperlipidemia, unspecified; Z87.891 Personal history of nicotine dependence; Z79.899 Other long term (current) drug therapy; Z20.822 Contact with and (suspected) exposure to COVID-19
CPT/HCPCS: 36415; 36430; 76705; 80048; 80053; 80076; 81003; 82140; 82728; 83540; 83550; 83735; 83880; 84100; 85025; 85610; 86850; 86900; 86901; 86923; 93005; 93010; 96365; 96375; 96376; 99285-25; A9270; C9113; G0378; J0696; J1940; J2354; J2704; J7030; J7050; J7120; P9016; P9612; U0004

== ENCOUNTER 2021-11-24 15:47 | Emergency (ER) | payer MEDICARE, OTHER ==
[~2021-11-24] VITALS: Ht 157.5 cm; Wt 61.2 kg
[2021-11-24 16:12] LABS: BASOPHILS ABSOLUTE AUTO 0.06 K/mm3 (0.00-0.23); BASOPHILS PERCENT AUTO 1 % (0-2); EOSINOPHILS ABSOLUTE AUTO 0.36 K/mm3 (0.00-0.68); EOSINOPHILS PERCENT AUTO 7 % (0-6); Hematocrit 28.6 % (33.0-51.0); Hemoglobin 9.3 g/dL (11.5-16.0); IMMATURE GRAN ABSOLUTE AUTO 0.01 K/mm3 (0.00-0.10); IMMATURE GRAN PERCENT AUTO 0 % (0-1); LYMPHOCYTES ABSOLUTE AUTO 1.34 K/mm3 (0.84-5.20); LYMPHOCYTES PERCENT AUTO 25 % (21-46); MONOCYTES PERCENT AUTO 9 % (4-13); Mean Corpuscular HGB 33.8 pg (26.0-34.0); Mean Corpuscular HGB Conc 32.5 g/dL (31.5-36.5); Mean Corpuscular Volume 104 fL (80-100); Mean Platelet Volume 10.5 fL (9.1-12.4); NEUTROPHILS PERCENT AUTO 59 % (41-73); Platelet Count 137 K/mm3 (150-400); RDW Coefficient Variation 17.2 % (11.7-14.2); RDW Standard Deviation 65.4 fL (35.1-46.3); Red Blood Cell Count 2.75 M/mm3 (3.80-5.20); White Blood Cell Count 5.47 K/mm3 (4.00-11.30)
[2021-11-24 16:36] LABS: Albumin, Blood 2.7 g/dL (3.4-5.0); Albumin/Globulin Ratio 0.7 (0.8-1.8); Bilirubin, Total 1.1 mg/dL (0.1-1.0); Bun/Creatinine Ratio 23.4 (12.0-20.0); Calcium, Blood 8.8 mg/dL (8.5-10.1); Creatinine, Blood 1.11 mg/dL (0.40-1.00); Potassium, Blood 4.5 mmol/L (3.5-5.5); Total Protein, Blood 6.7 g/dL (6.4-8.2)
== END 2021-11-24 18:51 | disposition home or self-care (01) ==
LOC: ER 15:47
PROVIDERS: Physician Assistant
DX: K92.1 Melena (principal); Z87.19 Personal history of other diseases of the digestive system; K21.9 Gastro-esophageal reflux disease without esophagitis; J45.909 Unspecified asthma, uncomplicated; I10 Essential (primary) hypertension; E78.5 Hyperlipidemia, unspecified; Z79.899 Other long term (current) drug therapy
CPT/HCPCS: 36415; 80053; 83690; 85025; C9113

== ENCOUNTER 2022-02-27 03:17 | Emergency (ER) | payer MEDICARE, OTHER ==
[~2022-02-27] VITALS: Ht 157.5 cm; Wt 60.3 kg
[~2022-02-27 03:17] MED LIST changes: +PRAHYD1AEA PR
[2022-02-27 03:50] LABS: BASOPHILS ABSOLUTE AUTO 0.05 K/mm3 (0.00-0.23); BASOPHILS PERCENT AUTO 1 % (0-2); EOSINOPHILS ABSOLUTE AUTO 0.35 K/mm3 (0.00-0.68); EOSINOPHILS PERCENT AUTO 8 % (0-6); Hematocrit 19.7 % (33.0-51.0); Mean Corpuscular HGB 30.5 pg (26.0-34.0); Mean Corpuscular HGB Conc 30.5 g/dL (31.5-36.5); Mean Corpuscular Volume 100 fL (80-100); Mean Platelet Volume 10.6 fL (9.1-12.4); Platelet Count 104 K/mm3 (150-400); RDW Coefficient Variation 14.8 % (11.7-14.2); RDW Standard Deviation 53.7 fL (35.1-46.3); Red Blood Cell Count 1.97 M/mm3 (3.80-5.20); White Blood Cell Count 4.33 K/mm3 (4.00-11.30)
[2022-02-27 03:52] LABS: IMMATURE GRAN ABSOLUTE AUTO 0.01 K/mm3 (0.00-0.10); IMMATURE GRAN PERCENT AUTO 0 % (0-1); LYMPHOCYTES ABSOLUTE AUTO 1.42 K/mm3 (0.84-5.20); LYMPHOCYTES PERCENT AUTO 33 % (21-46); MONOCYTES ABSOLUTE AUTO 0.43 K/mm3 (0.16-1.47); MONOCYTES PERCENT AUTO 10 % (4-13); NEUTROPHILS ABSOLUTE AUTO 2.07 K/mm3 (1.96-9.15); NEUTROPHILS PERCENT AUTO 48 % (41-73)
[2022-02-27 04:00] LABS: International Normalized Ratio 1.26
[2022-02-27 04:05] LABS: Albumin, Blood 2.5 g/dL (3.4-5.0); Albumin/Globulin Ratio 0.6 (0.8-1.8); Bun/Creatinine Ratio 22.8 (12.0-20.0); Calcium, Blood 8.5 mg/dL (8.5-10.1); Creatinine, Blood 1.36 mg/dL (0.40-1.00); Globulin, Blood 3.9 g/dL (2.2-4.0); Potassium, Blood 4.2 mmol/L (3.5-5.5); Total Protein, Blood 6.4 g/dL (6.4-8.2)
== END 2022-02-27 08:07 | disposition home or self-care (01) ==
LOC: ER 03:17
PROVIDERS: Emergency Medicine
DX: D64.9 Anemia, unspecified (principal); K74.60 Unspecified cirrhosis of liver; K21.9 Gastro-esophageal reflux disease without esophagitis; J45.909 Unspecified asthma, uncomplicated; I10 Essential (primary) hypertension; E78.5 Hyperlipidemia, unspecified; Z79.899 Other long term (current) drug therapy
CPT/HCPCS: 36415; 80053; 85025; 85610; 86850; 86900; 86901; 86923; 93005; 93010; J7030; P9016

== ENCOUNTER 2022-04-12 06:34 | Inpatient (IN) | payer MEDICARE, OTHER ==
[~2022-04-12] VITALS: Ht 157.5 cm; Wt 71.1 kg
[2022-04-12 07:52] LABS: BASOPHILS ABSOLUTE AUTO 0.07 K/mm3 (0.00-0.23); BASOPHILS PERCENT AUTO 1 % (0-2); EOSINOPHILS ABSOLUTE AUTO 0.42 K/mm3 (0.00-0.68); EOSINOPHILS PERCENT AUTO 8 % (0-6); Hematocrit 19.8 % (33.0-51.0); IMMATURE GRAN ABSOLUTE AUTO 0.07 K/mm3 (0.00-0.10); IMMATURE GRAN PERCENT AUTO 1 % (0-1); LYMPHOCYTES ABSOLUTE AUTO 1.07 K/mm3 (0.84-5.20); LYMPHOCYTES PERCENT AUTO 19 % (21-46); MONOCYTES ABSOLUTE AUTO 0.41 K/mm3 (0.16-1.47); MONOCYTES PERCENT AUTO 7 % (4-13); Mean Corpuscular HGB Conc 30.3 g/dL (31.5-36.5); Mean Corpuscular Volume 99 fL (80-100); Mean Platelet Volume 10.8 fL (9.1-12.4); NEUTROPHILS ABSOLUTE AUTO 3.51 K/mm3 (1.96-9.15); NEUTROPHILS PERCENT AUTO 63 % (41-73); Platelet Count 103 K/mm3 (150-400); RDW Coefficient Variation 20.2 % (11.7-14.2); RDW Standard Deviation 68.4 fL (35.1-46.3); White Blood Cell Count 5.55 K/mm3 (4.00-11.30)
[2022-04-12 07:59] LABS: Albumin, Blood 2.5 g/dL (3.4-5.0); Albumin/Globulin Ratio 0.7 (0.8-1.8); Bilirubin, Total 1.6 mg/dL (0.1-1.0); Bun/Creatinine Ratio 22.4 (12.0-20.0); Calcium, Blood 8.6 mg/dL (8.5-10.1); Creatinine, Blood 1.16 mg/dL (0.40-1.00); Globulin, Blood 3.8 g/dL (2.2-4.0); Potassium, Blood 4.3 mmol/L (3.5-5.5); Total Protein, Blood 6.3 g/dL (6.4-8.2)
[2022-04-12 09:47] LABS: Influenza A, PCR NEGATIVE (NEGATIVE); Influenza B, PCR NEGATIVE (NEGATIVE); Resp Syncytial Virus, PCR NEGATIVE (NEGATIVE); SARS-Cov-2 (COVID-19) PCR, MMC NEGATIVE (NEGATIVE)
[2022-04-12 10:10] LABS: Source, Urine Straight Cath
[2022-04-12 10:14] LABS: Appearance, Urine Clear (Clear); Bilirubin, Urine Neg (Neg); Blood, Urine 1+ (Neg); Color, Urine Yellow (P-Yellow); Glucose Qualitative, Urine Neg (Neg); Ketones, Urine 1+ (Neg); Leukocyte Esterase, Urine Neg (Neg); Nitrite, Urine Neg (Neg); Protein, Urine Neg (Neg); Specific Gravity, Urine 1.015 (1.003-1.022); Urobilinogen, Urine 1+ (Normal)
[2022-04-12 10:25] LABS: U Amphetamine Screen Not Detected; U Barbituate Screen Not Detected; U Benzodiazapine Screen Not Detected; U Buprenorphine Screen Not Detected; U Cannabinoids Screen Not Detected; U Cocaine Screen Not Detected; U Methadone Screen Not Detected; U Methamphetamine Screen Not Detected; U Opiates Screen Not Detected; U Oxycodone Screen Not Detected; U Phencyclidine Screen Not Detected; U Propoxyphene Screen Not Detected
[2022-04-12 10:42] LABS: Bacteria Few /hpf; Red Blood Cells, Urine 0-2 /hpf (0-2); Squamous Epithelial Cells Few /hpf (Few); White Blood Cells, Urine 0-2 /hpf (0-5)
[2022-04-12 12:08] LABS: Hematocrit 16.9 % (33.0-51.0)
[2022-04-12 13:56] LABS: International Normalized Ratio 1.28; Prothrombin Time Results 13.2 Sec (9.7-11.5)
[2022-04-12 15:03] LABS: Anti-Xa UFH, PHA Monitoring <0.10 IU/mL
--- NOTE | 2022-04-12 18:05 | NUR ---
PT WENT TO PARACENTESIS PROCEDURE AND WILL BE TRANSFERRING TO PCU 18 DUE TO HGB DROPPING POST TRANSFUSION AND MULTIPLE IV MEDICATIONS. REPORT GIVEN TO GEOVANNI ALFARO. PT LIFE PARTNER HELEN AND SISTER DANIEL GIVEN UPDATE STATUS AND NOTIFIED OF TRANSFER. PT VITALS HAVE BEEN STABLE, SHE HAS NO COMPLAINTS OF PAIN OR NAUSEA. SHE HAS REMAINED A/O X 1, PLEASANT AND COOPERATIVE WITH CARE. TELE NOTIFIED OF TX.
--- NOTE | 2022-04-12 18:41 | NUR ---
ARRIVAL PCU PT BROUGHT TO PCU-18 BY LISA FROM RADIOLOGY @ 1835. PT A&O TO SELF & PLACE. PT UNABLE TO STATE DATE, THEN STATING YEAR "19..... SOMETHING?" PT NEEDING TO USE BATHROOM UPON ARRIVAL, HAVING DIFFICULTY UNDERSTANDING/FOLLOWING INSTRUCTIONS FOR ASSSISTANCE W/ BEDPAN USE. PT VSS. SPO2 > 92% ON RA. MONITOR SHOWING SR-ST, HR 90s-110. PROTONIX GTT & SANDOSTATIN GTT & NS GTT INFUSING PER ORDERS. WILL GIVE REPORT TO ACCEPTING DISTRIBUTED GENERATION PROJECT MANAGER RN.
[2022-04-12 19:09] LABS: Automated BF WBC Count 0.053 K/mm3 (0-999)
[2022-04-12 19:11] LABS: Body Fluid WBC Count 53 /mm3 (0-999)
[2022-04-12 19:43] LABS: RBC Count, Body Fluid 136 /mm3 (0-0)
[2022-04-12 20:21] LABS: Total Cell Count, Body Fluid 100
[2022-04-12 20:22] LABS: Color, Body Fluid L Yellow (None-Yellow)
[2022-04-12 20:23] LABS: Appearance, Body Fluid Clear (Clear)
[2022-04-12 23:27] LABS: Hematocrit 25.4 % (33.0-51.0); Hemoglobin 8.3 g/dL (11.5-16.0)
--- NOTE | 2022-04-13 04:52 | NUR ---
SHIFT SUMMARY AT THE START OF THE SHIFT THE PT WAS ONLY ORIENTED TO SELF. SHE IS NOW ORIENTED TO SELF, PERSON, TIME, AND EVENTS. SHE STILL HAS SOME CONFUSION AND PULLS AT HER LINES, TELE, AND IVS. SHE PULLED OUT TWO IV'S IN THE NIGHT, AND ONE WAS REPLACED. WE HAVE TRIED DISTRACTION, FIDGET APRON, TUCKING AWAY LINES, BUT SHE STILL IS PULLING AT EVERYTHING WHEN UNATTENDED. SHE FEELS VERY WEAK AND TIRED, BUT WOULD NOT SLEEP TONIGHT. PT HAS BEEN SR 80'S-90'S ON TELEMETRY, SP02>90% ON ROOM AIR, AND PT DENIES ANGINA/SOB/PAIN. SHE HAS MANY WATERY DARK BROWN STOOL'S T/O, BOTH INC AND CONT. SHE RECIEVED 1 UNIT OF BLOOD AND DID NOT HAVE ANY ADVERSE REACTIONS. SHE CURRENTLY HAS SANDOSTATIN, NS, AND PROTONIX INFUSING. BED IS IN LOW, CALL LIGHT IS IN REACH, THREE SIDE RAILS UP. SEE NOTES FOR ANY UPDATES.
[2022-04-13 05:22] LABS: BASOPHILS ABSOLUTE AUTO 0.05 K/mm3 (0.00-0.23); BASOPHILS PERCENT AUTO 1 % (0-2); EOSINOPHILS PERCENT AUTO 7 % (0-6); Hematocrit 25.2 % (33.0-51.0); Hemoglobin 8.2 g/dL (11.5-16.0); IMMATURE GRAN ABSOLUTE AUTO 0.01 K/mm3 (0.00-0.10); IMMATURE GRAN PERCENT AUTO 0 % (0-1); LYMPHOCYTES ABSOLUTE AUTO 0.84 K/mm3 (0.84-5.20); LYMPHOCYTES PERCENT AUTO 19 % (21-46); MONOCYTES ABSOLUTE AUTO 0.38 K/mm3 (0.16-1.47); MONOCYTES PERCENT AUTO 8 % (4-13); Mean Corpuscular HGB 29.9 pg (26.0-34.0); Mean Corpuscular HGB Conc 32.5 g/dL (31.5-36.5); Mean Platelet Volume 10.9 fL (9.1-12.4); NEUTROPHILS ABSOLUTE AUTO 2.92 K/mm3 (1.96-9.15); NEUTROPHILS PERCENT AUTO 65 % (41-73); Platelet Count 72 K/mm3 (150-400); RDW Coefficient Variation 19.7 % (11.7-14.2); RDW Standard Deviation 60.3 fL (35.1-46.3); Red Blood Cell Count 2.74 M/mm3 (3.80-5.20)
[2022-04-13 05:28] LABS: International Normalized Ratio 1.32; Prothrombin Time Results 13.6 Sec (9.7-11.5)
[2022-04-13 05:34] LABS: Mean Corpuscular Volume 92 fL (80-100)
[2022-04-13 05:56] LABS: Albumin, Blood 2.4 g/dL (3.4-5.0); Albumin/Globulin Ratio 0.6 (0.8-1.8); Bilirubin, Total 3.1 mg/dL (0.1-1.0); Bun/Creatinine Ratio 19.5 (12.0-20.0); Calcium, Blood 8.3 mg/dL (8.5-10.1); Creatinine, Blood 1.23 mg/dL (0.40-1.00); Globulin, Blood 3.8 g/dL (2.2-4.0); Magnesium, Blood 1.9 mg/dL (1.6-2.4); Phosphorus, Blood 3.6 mg/dL (2.5-4.9); Total Protein, Blood 6.2 g/dL (6.4-8.2)
--- NOTE | 2022-04-13 08:29 | NUR ---
04/13/22 0829 Brayan Moreira UPDRAFT GIVEN PRIOR TO GOING TO ENDO ROOM PER DR. THIBODEAUX'S ORDER. History, Chart, Medications and Allergies reviewed before start of procedure.MONITOR INTACT WITH CONTINUOUS PULSE OXIMETRY AND INTERMITTENT BP.Bite Block Placed. LIDOCAINE 2% SPRAY TO BACK OF THROAT PRIOR TO PROCEDURE AT 0820
--- NOTE | 2022-04-13 10:19 | NUR ---
ASSUMPTION OF CARE: NEURO: ALERT AND ORIENTED X 3. 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 CURRENLTY IS REORIENTABLE AND IMPROVING MENTATION. CARDIAC: [facility] 112, HAS BEEN ST SINCE ARRIVAL BACK FROM DAY SURGERY. DENIES CHEST PAIN/PRESSURE OR SOB. SLIGHTLY HYPERTENSIVE AT THIS TIME. PULM: ON RA SPO2>98%, RECIEVED DUONEB BY DAY SURG, IMPROVING LUNG SOUNDS AFTER, STILL COARSE IN LEFT UPPER LOBES. GI/: DAY SURG HAD ABLASIONS TO OLD SITES TO PREVENT OOZING, NO NEW BLEEDS/ ACTIVE BLEEDS. PROTONIX AND OCTREOSIDE DC'D. PATIENT WAS REPORTED BY NIGHT RN TO HAVE MULTIPLE BM'S AROUND 4-5 LOOSE STOOLS THAT ARE SOMETIMES INCONTINENT. WILL CONTINUE TO MONITOR UNTIL SHIFT CHANGE. NO CONCERNS CURRENLTY FROM THIS RN.
[2022-04-13 13:33] LABS: Hematocrit 25.2 % (33.0-51.0); Hemoglobin 8.2 g/dL (11.5-16.0)
--- NOTE | 2022-04-13 18:41 | NUR ---
END OF SHIFT: PATIENT ONLY CHANGES FROM ASSUMPTION OF CARE ARE: SHE EXPERIENCED SOME SOB THAT SELF RESOLVED. CXR NEG, AND Hgb MAX 8.2 PATIENT ALSO HAD EKG ON RETURN FROM DAY SURG EGD, WHEN THERE WERE SOME ABLASIONS BUT NO ACTIVE NEW BLEEDS. SOME OLD BLEEDS, THAT POTENTIALLY WERE OOZING. PATIENT SPO2 100 ON RA, HR HAS BEEN SR TO ST NO ACTIVE CHEST PAIN/PRESSURE OR SOB. NO ACUTE RESPIRATORY DISTRESS AT THIS TIME. PATIENT HAS BEEN PLEASANT MORE ORIENTED THAN THIS AM. WILL CONTINUE TO MONITOR UNTIL SHIFT CHANGE. PATIENT ONLY HAD 1 LARGE BM WAS ABLE TO SBA TO CHAIR FOR DINNER AND BACK TO BED AFTERWARDS. PATIENT HAS NO QUESTIONS NO QUESTIONS OR CONCERNS FROM THIS RN AT THIS TIME.
--- NOTE | 2022-04-14 05:05 | NUR ---
SHIFT SUMMARY PT HAS BEEN A&0X4, 1P SBA TO THE BS, SR 70'S-80'S ON TELE, SP02>95% ON ROOM AIR, AND DENIES ANGINA/CHEST PRESSURE, SOB, N/V, AND PAIN. SHE HAS IMPROVED IN HER MENTATION AND IS FOLLOWING COMMANDS/CALLING APPROPRIATELY. PT HAS HAD TWO WATERY DARK BROWN BOWEL MOVEMENTS IN THE NIGHT, AND WAS ABLE TO USE THE BATHROOM APPROPRIATELY. HER BED ALARM IS ON, CALL LIGHT IN REACH, BED IN LOW, AND HAS THREE SIDE RAILS UP. WILL CONTINUE TO MONITOR UNTIL SHIFT REPORT IS GIVEN TO THE ONCOMING SHIFT RN. SEE NOTES FOR ANY UPDATES.
[2022-04-14 11:47] LABS: BASOPHILS ABSOLUTE AUTO 0.06 K/mm3 (0.00-0.23); BASOPHILS PERCENT AUTO 1 % (0-2); EOSINOPHILS ABSOLUTE AUTO 0.42 K/mm3 (0.00-0.68); EOSINOPHILS PERCENT AUTO 5 % (0-6); Hematocrit 27.9 % (33.0-51.0); Hemoglobin 8.9 g/dL (11.5-16.0); IMMATURE GRAN ABSOLUTE AUTO 0.03 K/mm3 (0.00-0.10); IMMATURE GRAN PERCENT AUTO 0 % (0-1); LYMPHOCYTES ABSOLUTE AUTO 0.75 K/mm3 (0.84-5.20); LYMPHOCYTES PERCENT AUTO 9 % (21-46); MONOCYTES ABSOLUTE AUTO 0.58 K/mm3 (0.16-1.47); MONOCYTES PERCENT AUTO 7 % (4-13); Mean Corpuscular HGB 30.1 pg (26.0-34.0); Mean Corpuscular HGB Conc 31.9 g/dL (31.5-36.5); Mean Corpuscular Volume 94 fL (80-100); Mean Platelet Volume 10.4 fL (9.1-12.4); NEUTROPHILS ABSOLUTE AUTO 6.56 K/mm3 (1.96-9.15); NEUTROPHILS PERCENT AUTO 78 % (41-73); Platelet Count 77 K/mm3 (150-400); RDW Coefficient Variation 19.2 % (11.7-14.2); RDW Standard Deviation 63.7 fL (35.1-46.3); Red Blood Cell Count 2.96 M/mm3 (3.80-5.20)
[2022-04-14 12:13] LABS: Albumin, Blood 2.5 g/dL (3.4-5.0); Albumin/Globulin Ratio 0.6 (0.8-1.8); Bilirubin, Total 1.6 mg/dL (0.1-1.0); Bun/Creatinine Ratio 20.5 (12.0-20.0); Calcium, Blood 8.1 mg/dL (8.5-10.1); Creatinine, Blood 1.17 mg/dL (0.40-1.00); Globulin, Blood 4.1 g/dL (2.2-4.0); Total Protein, Blood 6.6 g/dL (6.4-8.2)
--- NOTE | 2022-04-14 16:38 | NUR ---
END OF SHIFT: NEURO: COMPLETLY ALERT AND ORIENTED, PLEASANT ABLE TO MAKE NEEDS KNOWN. CARDIAC: DENIES CHEST PAIN/PRESSURE OR SOB. DID HAVE A SINGULAR EPISODE OD AFIB WITH RVR RESOLVED WITH SINGLE IV PUSH OF 5mg METOPROLOL PROVIDER AWARE CONVERTED MINUTES AFTER ADMINISTRATION OF MEDICATION. PULM: SPO2 ON RA IS 97% OR HIGHER. SLIGHLTY COARSE IN THE AM, DENIED NEED FOR PRN BREATHING TX. GI/: 2BM'S TODAY HELD LACTOLUSE PATIENT HAD LARGE LOOSE BM'S. WILL CONTINUE TO MONITOR UNTIL SHIFT CHANGE.
[2022-04-15 04:26] LABS: BASOPHILS ABSOLUTE AUTO 0.03 K/mm3 (0.00-0.23); BASOPHILS PERCENT AUTO 1 % (0-2); EOSINOPHILS ABSOLUTE AUTO 0.46 K/mm3 (0.00-0.68); EOSINOPHILS PERCENT AUTO 8 % (0-6); Hemoglobin 8.2 g/dL (11.5-16.0); IMMATURE GRAN ABSOLUTE AUTO 0.01 K/mm3 (0.00-0.10); IMMATURE GRAN PERCENT AUTO 0 % (0-1); LYMPHOCYTES ABSOLUTE AUTO 0.84 K/mm3 (0.84-5.20); LYMPHOCYTES PERCENT AUTO 14 % (21-46); MONOCYTES ABSOLUTE AUTO 0.45 K/mm3 (0.16-1.47); MONOCYTES PERCENT AUTO 7 % (4-13); Mean Corpuscular HGB 30.8 pg (26.0-34.0); Mean Corpuscular HGB Conc 32.8 g/dL (31.5-36.5); Mean Corpuscular Volume 94 fL (80-100); Mean Platelet Volume 10.4 fL (9.1-12.4); NEUTROPHILS ABSOLUTE AUTO 4.29 K/mm3 (1.96-9.15); NEUTROPHILS PERCENT AUTO 71 % (41-73); Platelet Count 65 K/mm3 (150-400); RDW Coefficient Variation 18.6 % (11.7-14.2); RDW Standard Deviation 62.2 fL (35.1-46.3); Red Blood Cell Count 2.66 M/mm3 (3.80-5.20); White Blood Cell Count 6.08 K/mm3 (4.00-11.30)
[2022-04-15 05:01] LABS: Albumin, Blood 2.2 g/dL (3.4-5.0); Albumin/Globulin Ratio 0.6 (0.8-1.8); Bilirubin, Total 1.3 mg/dL (0.1-1.0); Bun/Creatinine Ratio 19.6 (12.0-20.0); Calcium, Blood 7.9 mg/dL (8.5-10.1); Creatinine, Blood 1.07 mg/dL (0.40-1.00); Globulin, Blood 3.5 g/dL (2.2-4.0); Potassium, Blood 4.6 mmol/L (3.5-5.5); Total Protein, Blood 5.7 g/dL (6.4-8.2)
--- NOTE | 2022-04-15 06:09 | NUR ---
SHIFT SUMMARY PT A&O X4; PLEASANT AND COOPERATIVE WITH CARE. VSS. NO EPISODES OF AFIB THIS SHIFT. PT HAD 1 EPISODE OF NAUSEA W/EMESIS. MEDICATED PER EMAR, THIS SEEMED TO RELIEVE NAUSEA. PT HAD BM X2; MEDIUM, WATERY AND LOOSE, BROWN IN COLOR. SMALL AMOUNT OF BRIGHT RED BLOOD NOTED ON TOILET PAPER WHEN WIPING. PT DENIES DIZZINESS OR LIGHTHEADNESS. PT DENIES SOB, BUT THIS RN NOTES DYSPNEA W/EXERTION. LUNG SOUNDS WHEEZING AND AUDIBLE WHEEZES HEARD. RT NOTFIED FOR BREATHING TX. THIS SEEMED TO IMPROVE WHEEZING. PT DENIED FEELING SOB OR WHEEZING DURING THIS EPISODE. PT HAS BEEN RESTING OF AND ON THROUGHOUT SHIFT. CALL LIGHT IN REACH, PT DOES NOT CONSISTENTLY USE CALL LIGHT FOR NEEDS. EDUCATION PROVIDED AND THIS RN ENCOURAGED PT TO USE CALL LIGHT WHEN SHE HAS A NEED. PT VERBALIZED UNDERSTANDING.
--- NOTE | 2022-04-15 06:15 | NUR ---
UPDATE DR. LU IN TO SEE PT. ASKED THIS RN ABOUT PARACENTESIS, THIS RN DID NOT SEE NOTE AND HAD NOT BEEN NOTIFIED OF PREVIOUS PARACENTESIS. AFTER VISIT, THIS RN LOOKED INTO CHART FROM DOS; THIS RN SAW NOTE THAT PARACENTESIS WAS COMPLETED ON 04/12 AND 0.6 L REMOVED. CULTURES AND LAB DONE; SEE LABS AND MICRO. EXPRESSED CONCERN ABOUT ASCITES; SEE HIS NOTES. POSSIBLE PARACENTESIS? DR. LU STATES HE WILL PUT IN ANOTHER ORDER FOR THIS. THIS RN UNSURE IF WILL OCCUR SINCE IT WAS PREVIOUSLY DONE ON 04/12 AND THIS WAS UNKNOWN DURING HIS VISIT AT START OF SHIFT ON 04/14
--- NOTE | 2022-04-15 07:32 | NUR ---
AM ASSESSMENT: Pt resting in bed. LS clear. HR reg, murmur noted. BT hyperactive. Abd distended and firm, tender to palpation. Pulses palp. +2 edema in BLE that Pt states is always there. Pt A/O to place, time and situation. Follows directions. Denies needs or questions. VSS. Call light in reach. Will monitor.
--- NOTE | 2022-04-15 17:15 | NUR ---
SHIFT SUMMARY: Pt resting in bed at this time. Has done well this shift. VSS throughout shift. Pt has been up independintly in room and to bathroom. Has had 1 wittnessed liquid BM but pt states that she had 2 more BM's this AM. Pt has remained on RA throguhout shift. Did have some exp wheezing that improved after albuteral nebulizer. Abd has remained distended. Pt states that she is anxious for paracentisis tomorrow. States that she thinks her breathing will improved once the fluid is off her ABD. Plan for paracentisis in AM. Pt denies other needs this shift. Stable at end of shift. Will report to night RN.
--- NOTE | 2022-04-16 00:36 | NUR ---
ASSUMPTION OF CARE ASSUMED CARE OF PT AT 1900. PT A&Ox4, CALLS AND COMMUNICATES NEEDS APPROPRIATELY. VSS, SpO2> 92% RA, DENIES SOB. BP STABLE, SR-ST 80-100's, DENIES CP/PRESSURE. PT IS IND IN ROOM. PT REQUESTING MEDICATION TO HELP HER SLEEP BETTER TONIGHT AND THAT AFTER MEDS ARE ADMINISTERED AND VS ARE DONE THAT THIS RN TURNS OUT THE LIGHTS SO SHE CAN SLEEP. BED IN LOWEST POSITION, CALL LIGHT IN REACH.
--- NOTE | 2022-04-16 06:01 | NUR ---
SHIFT SUMMARY SEE PREVIOUS NOTE. NO ACUTE EVENTS OVER NIGHT. WILL REPORT ON COMING RN.
[2022-04-16 06:28] LABS: BASOPHILS ABSOLUTE AUTO 0.03 K/mm3 (0.00-0.23); BASOPHILS PERCENT AUTO 1 % (0-2); EOSINOPHILS ABSOLUTE AUTO 0.53 K/mm3 (0.00-0.68); EOSINOPHILS PERCENT AUTO 10 % (0-6); Hematocrit 24.5 % (33.0-51.0); Hemoglobin 7.7 g/dL (11.5-16.0); IMMATURE GRAN ABSOLUTE AUTO 0.01 K/mm3 (0.00-0.10); IMMATURE GRAN PERCENT AUTO 0 % (0-1); LYMPHOCYTES ABSOLUTE AUTO 0.82 K/mm3 (0.84-5.20); LYMPHOCYTES PERCENT AUTO 16 % (21-46); MONOCYTES ABSOLUTE AUTO 0.53 K/mm3 (0.16-1.47); MONOCYTES PERCENT AUTO 10 % (4-13); Mean Corpuscular HGB 30.2 pg (26.0-34.0); Mean Corpuscular HGB Conc 31.4 g/dL (31.5-36.5); Mean Corpuscular Volume 96 fL (80-100); Mean Platelet Volume 10.3 fL (9.1-12.4); NEUTROPHILS ABSOLUTE AUTO 3.22 K/mm3 (1.96-9.15); NEUTROPHILS PERCENT AUTO 63 % (41-73); Platelet Count 67 K/mm3 (150-400); RDW Coefficient Variation 18.5 % (11.7-14.2); RDW Standard Deviation 62.6 fL (35.1-46.3); Red Blood Cell Count 2.55 M/mm3 (3.80-5.20); White Blood Cell Count 5.14 K/mm3 (4.00-11.30)
[2022-04-16 06:32] LABS: Albumin, Blood 2.2 g/dL (3.4-5.0); Albumin/Globulin Ratio 0.6 (0.8-1.8); Bilirubin, Total 1.1 mg/dL (0.1-1.0); Bun/Creatinine Ratio 20.4 (12.0-20.0); Calcium, Blood 7.9 mg/dL (8.5-10.1); Creatinine, Blood 1.13 mg/dL (0.40-1.00); Globulin, Blood 3.5 g/dL (2.2-4.0); Potassium, Blood 4.3 mmol/L (3.5-5.5); Total Protein, Blood 5.7 g/dL (6.4-8.2)
--- NOTE | 2022-04-16 09:48 | NUR ---
PARACENTESIS: PT TO IMAGING AT ABOUT 0855. PER FINISHER COLD ROLLING, UNABLE TO DRAIN ANY FLUID. PT TRANSFERED BACK TO ROOM AND COMFORTABLE IN BED AT THIS TIME WITH CALL LIGHT.
--- NOTE | 2022-04-16 10:48 | NUR ---
DR. PEÑA IN PT ROOM AT THIS TIME, MADE AWARE THAT IMAGING UNABLE TO DRAIN ANY FLUID IN PARACENTESIS.
--- NOTE | 2022-04-16 14:01 | NUR ---
DISCHARGE:PACKET PRINTED AND PT EDUCATED. IV DC'D WNL, TIP INTACT. PT LEFT UNIT VIA WHEELCHAIR WITH RICH GAMING AT 1400
== END 2022-04-16 14:00 | disposition home or self-care (01) | DRG 441 ==
LOC: ER 06:34 → SURS 10:58 → PCU 10:58 → MEDS 10:58 → PCU 18:18 → SURS 04-16 07:48
PROVIDERS: Emergency Medicine; Family Medicine; Internal Medicine Gastroenterology; ADMIT Hospitalist
PROC: 30233N1 Transfusion of Nonautologous Red Blood Cells into Peripheral Vein, Percutaneous Approach (ICD-10-PCS; principal; 2022-04-12)
PROC: 0W9G3ZX Drainage of Peritoneal Cavity, Percutaneous Approach, Diagnostic (ICD-10-PCS; 2022-04-13)
PROC: 0W3P8ZZ Control Bleeding in Gastrointestinal Tract, Via Natural or Artificial Opening Endoscopic (ICD-10-PCS; 2022-04-13)
DX: K76.82 Hepatic encephalopathy (principal); K31.811 Angiodysplasia of stomach and duodenum with bleeding; D62 Acute posthemorrhagic anemia; K76.6 Portal hypertension; I85.10 Secondary esophageal varices without bleeding; Q21.12 Patent foramen ovale; I35.0 Nonrheumatic aortic (valve) stenosis; Z66 Do not resuscitate; K70.31 Alcoholic cirrhosis of liver with ascites; K21.9 Gastro-esophageal reflux disease without esophagitis; J45.909 Unspecified asthma, uncomplicated; Z20.822 Contact with and (suspected) exposure to COVID-19; F41.9 Anxiety disorder, unspecified; E78.5 Hyperlipidemia, unspecified; I12.9 Hypertensive chronic kidney disease with stage 1 through stage 4 chronic kidney disease, or unspecified chronic kidney disease; N18.30 Chronic kidney disease, stage 3 unspecified; Z98.890 Other specified postprocedural states; Z79.899 Other long term (current) drug therapy
CPT/HCPCS: 0241U; 36415; 36430; 49083; 71045; 76705; 80053; 81001; 82105; 82140; 82272; 83605; 83735; 84100; 85014; 85018; 85025; 85520; 85610; 85730; 86850; 86900; 86901; 86923; 87040; 87070; 87205; 89051; 93005; 93010; 94640; 94664; 94760; 94762; 96361; 96365; 96376; 99285-25; A9270; C9113; G0480; J0696; J2250; J2354; J2370; J2405; J2704; J3010; J7030; J7050; J7120; P9016; P9612

== ENCOUNTER 2022-06-01 18:48 | Inpatient (IN) | payer MEDICARE, OTHER ==
[~2022-06-01] VITALS: Ht 160 cm; Wt 66.6 kg
[2022-06-01 19:26] LABS: Mean Corpuscular HGB 29.2 pg (26.0-34.0); Mean Corpuscular HGB Conc 31.5 g/dL (31.5-36.5); Mean Corpuscular Volume 93 fL (80-100); Mean Platelet Volume 11.2 fL (9.1-12.4); NRBC ABSOLUTE 0.02 K/mm3 (0.00-0.02); NRBC Auto 0.3 /100 WBC (0.0-0.2); Platelet Count 125 K/mm3 (150-400); RDW Coefficient Variation 17.4 % (11.7-14.2); Red Blood Cell Count 1.61 M/mm3 (3.80-5.20); White Blood Cell Count 6.05 K/mm3 (4.00-11.30)
[2022-06-01 19:31] LABS: Hemoglobin 4.7 g/dL (11.5-16.0)
[2022-06-01 19:32] LABS: Hematocrit 14.9 % (33.0-51.0)
[2022-06-01 19:36] LABS: Albumin, Blood 2.1 g/dL (3.4-5.0); Albumin/Globulin Ratio 0.5 (0.8-1.8); Bilirubin, Total 1.3 mg/dL (0.1-1.0); Bun/Creatinine Ratio 32.8 (12.0-20.0); Calcium, Blood 8.2 mg/dL (8.5-10.1); Creatinine, Blood 1.22 mg/dL (0.40-1.00); Globulin, Blood 4.4 g/dL (2.2-4.0); Potassium, Blood 3.6 mmol/L (3.5-5.5); Total Protein, Blood 6.5 g/dL (6.4-8.2)
[2022-06-01 19:45] LABS: BASOPHILS ABSOLUTE MAN 0.12 K/mm3 (0.00-0.23); BASOPHILS PERCENT MAN 2 % (0-2); EOSINOPHILS ABSOLUTE MAN 0.36 K/mm3 (0.00-0.68); EOSINOPHILS PERCENT MAN 6 % (0-6); LYMPHOCYTES % ATYPICAL MANUAL 1 % (0-0); LYMPHOCYTES ABSOLUTE MAN 1.02 K/mm3 (0.84-5.20); LYMPHOCYTES PERCENT MAN 16 % (21-46); MONOCYTES ABSOLUTE MAN 0.24 K/mm3 (0.16-1.47); MONOCYTES PERCENT MAN 4 % (4-13); NEUTROPHILS ABSOLUTE MAN 4.29 K/mm3 (1.96-9.15); SEG NEUTROPHILS PERCENT MAN 71 % (41-73); TOTAL CELLS COUNTED 100
[2022-06-01 20:03] LABS: International Normalized Ratio 1.31; Prothrombin Time Results 13.5 Sec (9.7-11.5)
[2022-06-01 23:28] LABS: Body Fluid WBC Count 20 /mm3 (0-999); RBC Count, Body Fluid 326 /mm3 (0-0)
[2022-06-01 23:32] LABS: Glucose, Body Fluid 131 mg/dL; Lactate Dehydrogenase, Body Fl 20 U/L; Protein, Body Fluid 0.2 g/dL
[2022-06-02 00:15] LABS: Appearance, Body Fluid Clear (Clear); Color, Body Fluid L Yellow (None-Yellow); Total Cell Count, Body Fluid 100
[2022-06-02 03:21] LABS: BASOPHILS ABSOLUTE AUTO 0.03 K/mm3 (0.00-0.23); BASOPHILS PERCENT AUTO 1 % (0-2); EOSINOPHILS ABSOLUTE AUTO 0.29 K/mm3 (0.00-0.68); EOSINOPHILS PERCENT AUTO 7 % (0-6); Hematocrit 19.5 % (33.0-51.0); Hemoglobin 6.3 g/dL (11.5-16.0); IMMATURE GRAN PERCENT AUTO 0 % (0-1); LYMPHOCYTES ABSOLUTE AUTO 0.85 K/mm3 (0.84-5.20); LYMPHOCYTES PERCENT AUTO 21 % (21-46); MONOCYTES ABSOLUTE AUTO 0.37 K/mm3 (0.16-1.47); MONOCYTES PERCENT AUTO 9 % (4-13); Mean Corpuscular HGB 29.6 pg (26.0-34.0); Mean Corpuscular HGB Conc 32.3 g/dL (31.5-36.5); Mean Corpuscular Volume 92 fL (80-100); NEUTROPHILS ABSOLUTE AUTO 2.46 K/mm3 (1.96-9.15); NEUTROPHILS PERCENT AUTO 61 % (41-73); Platelet Count 74 K/mm3 (150-400); RDW Coefficient Variation 16.3 % (11.7-14.2); RDW Standard Deviation 53.4 fL (35.1-46.3); Red Blood Cell Count 2.13 M/mm3 (3.80-5.20)
[2022-06-02 03:40] LABS: International Normalized Ratio 1.31; Prothrombin Time Results 13.5 Sec (9.7-11.5)
[2022-06-02 03:43] LABS: Bun/Creatinine Ratio 31.5 (12.0-20.0); Creatinine, Blood 1.24 mg/dL (0.40-1.00); Magnesium, Blood 1.8 mg/dL (1.6-2.4); Potassium, Blood 3.5 mmol/L (3.5-5.5)
--- NOTE | 2022-06-02 06:34 | NUR ---
SHIFT SUMMERY PT IS ALERT AND ORIENTED X4, ABLE TO MAKE NEEDS KNOWN. SHE CAN AMBULATE TO BEDSIDE COMMODE W/ ONE PERSON ASSIST. VSS, 3RD UNIT OF PRBC INFUSING. ABDOMEN VERY DISTENDED AND TIGHT DESPITE 1L OF FLUID BEING DRAINED IN ER VIA PARACENTESIS. SHE HAS A HISTORY OF LIVER DISEASE. 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 SHE HAS EDEMA, GENERALIZED. SHE HAS BEEN AFEBRILE THROUGHOUT THE NIGHT AND HAS HAD NO COMPLAINTS OF PAIN. SHE HAS OCTREOTIDE AND PROTONIX GTTS INFUSING PER MD ORDER. SHE HAS HAD NO NAUSEA OR VOMITING OVERNIGHT AND NO BM. REPEAT H&H TO BE DONE AFTER THIS UNIT OF BLOOD INFUSES.
--- NOTE | 2022-06-02 07:40 | NUR ---
ASSUMED CARE: REPORT RECEIVED FROM ANGELA Quinn RN. ASSUMED CARE OF THIS PT AT APPROX 0700. ON ASSESSMENT, THE PT IS A&O TO ALL. SHE IS PLEASANT & COOPERATIVE W/ CARE. DENIES PAIN. LS CLEAR T/O, PT ON RA W/ O2 SATS > 92%. MONITOR SHOWS SR W/ OCCASIONAL PVCs, HR 70-90s, BP STABLE. PT TOLERATING CLEAR LIQUIDS WELL AT THIS TIME, SCHEDULED FOR EGD AT APPROX 1530 THIS AFTERNOON, NPO AT 1100. ABD DISNTENDED, PT STS NORMAL. 1L OFF DURING PARACENTESIS IN ED LAST NIGHT. VOIDS URINE W/O DIFFICULTY. SKIN CONDITION OVERALL INTACT, Q2H REPOSITIONING TO MAINTAIN SKIN INTEGRITY. WILL CONTINUE TO MONITOR & UPDATE NEEDED.
--- NOTE | 2022-06-02 10:31 | NUR ---
Echocardiogram completed.
[2022-06-02 11:59] LABS: Hematocrit 26.6 % (33.0-51.0); Hemoglobin 9.1 g/dL (11.5-16.0)
--- NOTE | 2022-06-02 15:24 | NUR ---
06/02/22 1523 Brayan Moreira IN ICU 14. ANEST[address] PER DR. MADRID. SEE ANESTHESIA RECORDS.
--- NOTE | 2022-06-02 16:16 | NUR ---
ENDOSCOPY: DR ADKINS HAS COMPLETED THIS PT's ENDOSCOPY. NO CURRENT BLEEDING NOTED & PT MAY NOW HAVE A FULL LIQUID DIET. PROVIDER WILL PLACE ORDERS & FEELS THAT SHE MAY DOWNGRADE FROM ICU STATUS WELL.
--- NOTE | 2022-06-02 18:13 | NUR ---
SHIFT SUMMARY: NO ACUTE CHANGES SINCE PRIOR UPDATES. PT REMAINS A&O, PLEASANT & COOPERATIVE. LS WHEEZING AFTER RECEIVING FLUIDS DURING EGD, LASIX PER EMAR. PT ON RA W/ O2 SATS > 92%. MONITOR SHOWS SR W/ HR 80-90s, BP STABLE. PT HAS NO GI COMPLAINTS AT THIS TIME, TOLERATING CLEAR LIQUID DIET WELL. ABD DISTENDED AT BASELINE R/T ASCITES. PT VOIDS URINE W/O DIFFICULTY USING BEDPAN. SKIN OVERALL INTACT & PT ABLE TO REPOSITION SELF IN BED PRN COMFORT. WILL CONTINUE TO MONITOR & REPORT OFF TO ONCOMING RN.
[2022-06-03 04:33] LABS: BASOPHILS ABSOLUTE AUTO 0.03 K/mm3 (0.00-0.23); BASOPHILS PERCENT AUTO 1 % (0-2); EOSINOPHILS ABSOLUTE AUTO 0.32 K/mm3 (0.00-0.68); EOSINOPHILS PERCENT AUTO 9 % (0-6); Hematocrit 25.4 % (33.0-51.0); Hemoglobin 8.6 g/dL (11.5-16.0); IMMATURE GRAN ABSOLUTE AUTO 0.01 K/mm3 (0.00-0.10); IMMATURE GRAN PERCENT AUTO 0 % (0-1); LYMPHOCYTES ABSOLUTE AUTO 0.51 K/mm3 (0.84-5.20); LYMPHOCYTES PERCENT AUTO 14 % (21-46); MONOCYTES ABSOLUTE AUTO 0.33 K/mm3 (0.16-1.47); MONOCYTES PERCENT AUTO 9 % (4-13); Mean Corpuscular HGB 30.1 pg (26.0-34.0); Mean Corpuscular HGB Conc 33.9 g/dL (31.5-36.5); Mean Corpuscular Volume 89 fL (80-100); Mean Platelet Volume 10.3 fL (9.1-12.4); NEUTROPHILS ABSOLUTE AUTO 2.56 K/mm3 (1.96-9.15); NEUTROPHILS PERCENT AUTO 68 % (41-73); Platelet Count 60 K/mm3 (150-400); RDW Coefficient Variation 15.9 % (11.7-14.2); RDW Standard Deviation 52.3 fL (35.1-46.3); Red Blood Cell Count 2.86 M/mm3 (3.80-5.20); White Blood Cell Count 3.76 K/mm3 (4.00-11.30)
[2022-06-03 04:52] LABS: International Normalized Ratio 1.38; Prothrombin Time Results 14.2 Sec (9.7-11.5)
[2022-06-03 04:55] LABS: Calcium, Blood 7.8 mg/dL (8.5-10.1); Creatinine, Blood 1.26 mg/dL (0.40-1.00); Potassium, Blood 3.4 mmol/L (3.5-5.5)
--- NOTE | 2022-06-03 06:04 | NUR ---
SHIFT SUMMERY PT IS ALERT AND ORIENTED X 4. NO N/V OVERNIGHT, PT DID HAVE A NORMAL BM. VSS. AFEBRILE. NO ACUTE CHANGES OVERNIGHT. OCTREOTIDE AND PROTONIX GTT CONTINUE TO INFUSE PER MD ORDER. NO COMPLAINTS OF PAIN.
--- NOTE | 2022-06-03 07:55 | NUR ---
ASSUMED CARE: REPORT RECEIVED FROM ANGELA Quinn RN. ASSUMED CARE OF THIS PT AT APPROX 0700. ON ASSESSMENT, THE PT IS AWAKE, A&O TO ALL. SHE IS PLEASANT & COOPERATIVE W/ CARE. DENIES PAIN THIS AM. LS CLEAR T/O, PT ON RA W/ O2 SATS > 92%. STS FEELING SOB & BELIEVES THAT HER "FULL BELLY" OF ASCITES IS THE CAUSE OF THIS. MONITOR SHOWS SR W/ HR 60-80s, BP STABLE. PT TOLERATING PO INTAKE WELL, NO C/O NAUSEA. VOIDS URINE W/O DIFFICULTY. SKIN CONDITION OVERALL DRY, JAUNDICED, INTACT. PT REPOSITIONS SELF FREQUENTLY FOR COMFORT & REQUESTS ASSISTANCE APPROPRIATELY. PLAN IS FOR PARA & THORACENTESIS PROCEDURES THIS AM. WILL CALL PROVIDER TO CLARIFY LABS FOR DIAGNOSTIC THORACENTESIS. WILL CONTINUE TO MONITOR & UPDATE NEEDED.
--- NOTE | 2022-06-03 09:42 | NUR ---
UPDATE: THORA & PARACENTESIS HAS BEEN COMPLETED. 800 ML FLUID REMOVED VIA THORACENTESIS & 3500 ML FLUID REMOVED VIA PARACENTESIS. THE PT's BREATHING IS NOW LESS LABORED & SHE STS FEELING LESS SOB SINCE PROCEDURE COMPLETED. LILLIE GALEANO, PLACING CXR ORDERS.
--- NOTE | 2022-06-03 10:10 | NUR ---
DR ANDERSON: PROVIDER AT BEDSIDE TO EVAL PT THIS AM. UPDATED HIM ON PARA & THORACENTESIS AMOUNTS. HE WILL PLACE LABS TO BE RUN ON DIAGNOSTIC THORACENTESIS SPECIMEN. PHYSICAL & OCCUPATIONAL THERAPIES ORDERED FOR THIS PT W/ CONTINUED GENERALIZED WEAKNESS. POTASSIUM RECHECK ORDERED FOR 1300, K 3.4 THIS AM. NO OTHER CHANGES AT THIS TIME.
[2022-06-03 10:42] LABS: Automated BF RBC Count 0.002 M/mm3 (0-0); Automated BF WBC Count 0.102 K/mm3 (0-999)
[2022-06-03 10:55] LABS: pH, Body Fluid 7.3
[2022-06-03 11:06] LABS: Glucose, Body Fluid 124 mg/dL; Lactate Dehydrogenase, Body Fl 58 U/L; Protein, Body Fluid 0.7 g/dL
[2022-06-03 11:08] LABS: Total Protein, Blood 5.5 g/dL (6.4-8.2)
[2022-06-03 11:14] LABS: Body Fluid WBC Count 102 /mm3 (0-999); RBC Count, Body Fluid 2000 /mm3 (0-0)
[2022-06-03 11:48] LABS: Appearance, Body Fluid Clear (Clear); Color, Body Fluid L Yellow (None-Yellow); Total Cell Count, Body Fluid 100
[2022-06-03 13:58] LABS: Albumin, Blood 1.9 g/dL (3.4-5.0); Albumin/Globulin Ratio 0.5 (0.8-1.8); Bilirubin, Total 1.4 mg/dL (0.1-1.0); Calcium, Blood 7.5 mg/dL (8.5-10.1); Creatinine, Blood 1.27 mg/dL (0.40-1.00); Globulin, Blood 4.2 g/dL (2.2-4.0); Potassium, Blood 3.4 mmol/L (3.5-5.5); Total Protein, Blood 6.1 g/dL (6.4-8.2)
--- NOTE | 2022-06-03 17:15 | NUR ---
DR ADKINS: PROVIDER AT BEDSIDE THIS EVENING TO EVAL PT. OCTREOTIDE & PROTONIX TO CONTINUE INFUSING, PT TO REMAIN ON FULL LIQUID DIET. DISCUSSED ORDERS FOR FERROUS SULFATE TABS PER DR ANDERSON, HE WOULD PREFER THAT THIS MEDICATION BE GIVEN IN IV FORM THE TABLET FORM IS QUITE CAUSTIC ON THE GI TRACT & THERE IS CONCERN FOR BLEEDING FROM ULCER NOTED DURING UPPER ENDOSCOPY. ORDER D/C'd. THIS RN UNABLE TO ADDRESS W/ EFM PROVIDER IT IS AFTER 1700. WILL NOTIFY ONCOMING SHIFT OF NEED TO ADDRESS IN AM. NO OTHER CHANGES AT THIS TIME.
--- NOTE | 2022-06-03 17:51 | NUR ---
SHIFT SUMMARY / TRANSFER TO PCU: THE PT REMAINS A&O TO ALL, BUT IS INCREASINGLY FORGETFUL. SHE NEEDS REMINDERS TO CALL FOR ASSISTANCE FOR TXs. LS CLEAR, PT ON RA W/ O2 SATS > 92%. MONITOR SHOWS SR W/ PACs, HR 60-70s, BP STABLE. PT TOLERATING PO INTAKE WELL W/ NO C/O NAUSEA. HAVING NUMEROUS BMs THAT ARE LIQUID & BROWN/ ORANGE IN COLOR. VOIDS URINE W/O DIFFICULTY. TX TO BSC W/ 1 STAFF ASSIST FOR CORDS/ LINES. SKIN CONDITION OVERALL INTACT, JAUNDICED & DRY. PT HAS SPENT MOST OF THE AFTERNOON SITTING UP IN THE CHAIR. REPOSITIONS SELF FOR COMFORT IN BED W/ STAFF ASSIST PRN. REPORT HAS BEEN GIVEN TO NESTOR Kraus RN TO ASSUME CARE IN PCU. PT TRANSFERRED OUT VIA AT 1820 BY JOSE TORRES & BECCA SMITH RN. CHART & ALL BELONGINGS TAKEN OUT W/ PT AT THAT TIME.
--- NOTE | 2022-06-03 17:58 | NUR ---
Pt and her sister Yuly requested assist with AD. AD packet given, reviewed with them, and they are going to fill out with witnesses to make it official. Will check in with them tomorrow.
--- NOTE | 2022-06-03 19:34 | NUR ---
1900: Care assumption Received report and assumed patient care. She is resting in bed, AOX3, declines pain or discomfort. IV infusing to R AC and L UA. Patient assisted in repositioning and given extra blankets per her request.
[2022-06-04 05:39] LABS: BASOPHILS ABSOLUTE AUTO 0.05 K/mm3 (0.00-0.23); BASOPHILS PERCENT AUTO 1 % (0-2); EOSINOPHILS ABSOLUTE AUTO 0.28 K/mm3 (0.00-0.68); EOSINOPHILS PERCENT AUTO 7 % (0-6); Hematocrit 31.2 % (33.0-51.0); Hemoglobin 10.3 g/dL (11.5-16.0); IMMATURE GRAN ABSOLUTE AUTO 0.01 K/mm3 (0.00-0.10); IMMATURE GRAN PERCENT AUTO 0 % (0-1); LYMPHOCYTES ABSOLUTE AUTO 0.84 K/mm3 (0.84-5.20); LYMPHOCYTES PERCENT AUTO 21 % (21-46); MONOCYTES ABSOLUTE AUTO 0.44 K/mm3 (0.16-1.47); MONOCYTES PERCENT AUTO 11 % (4-13); Mean Corpuscular Volume 91 fL (80-100); Mean Platelet Volume 10.9 fL (9.1-12.4); NEUTROPHILS ABSOLUTE AUTO 2.36 K/mm3 (1.96-9.15); NEUTROPHILS PERCENT AUTO 59 % (41-73); Platelet Count 70 K/mm3 (150-400); RDW Coefficient Variation 15.8 % (11.7-14.2); RDW Standard Deviation 52.1 fL (35.1-46.3); Red Blood Cell Count 3.43 M/mm3 (3.80-5.20); White Blood Cell Count 3.98 K/mm3 (4.00-11.30)
[2022-06-04 05:58] LABS: Bun/Creatinine Ratio 22.1 (12.0-20.0); Calcium, Blood 7.7 mg/dL (8.5-10.1); Creatinine, Blood 1.22 mg/dL (0.40-1.00); Magnesium, Blood 1.5 mg/dL (1.6-2.4); Potassium, Blood 3.3 mmol/L (3.5-5.5)
--- NOTE | 2022-06-04 06:01 | NUR ---
SHIFT SUMMARY NURSING REPORT Mrs Barbour was admitted for rectal bleed with HGB 4.7. She received 3 units PRBC, her HGB this AM is 8.6, had a BM during the shift and denies bloody or discolored stool. She is alert and oriented through the shift with episodes of forgetfulness. She needs constant reminder to call for assistance to bathroom. Right upper arm midline discontinues d/t leakage. New peripheral inserted to [id number], and blood sent to lab. Octreotide and Protonix gtt infusing continuous. No s/s of alcohol withdrawal noted or reported by patient. Her gait is steady, and able to ambulate to bathroom with standby assist. Will continue to monitor.
--- NOTE | 2022-06-04 19:11 | NUR ---
PT ARRIVED TO ROOM 362 VIA W/C FROM PCU. SETTLED IN TO ROOM AND ASSISTED TO BATHROOM WITH 1 PERSON SBA. REPORT GIVEN TO ONCOMING SHIFT.
--- NOTE | 2022-06-05 04:58 | NUR ---
A&O, PLEASANT, VSS, TOLERATING POS. SBA TO TOILET NEEDED. BED ALARM NEEDED PATIENT FORGETS TO USE CALL LIGHT. NO EVENTS OVER NIGHT. MONITORING CONDITION AND LABS FOR INDICATIONS OF BLOOD LOSS. MOVED FROM ROOM 62 TO 63 DUE TO CALL LIGHT NOT WORKING PROPERLY. SLEPT MOST OF NIGHT.
[2022-06-05 05:29] LABS: BASOPHILS ABSOLUTE AUTO 0.05 K/mm3 (0.00-0.23); BASOPHILS PERCENT AUTO 1 % (0-2); EOSINOPHILS ABSOLUTE AUTO 0.52 K/mm3 (0.00-0.68); EOSINOPHILS PERCENT AUTO 11 % (0-6); Hematocrit 29.1 % (33.0-51.0); Hemoglobin 9.5 g/dL (11.5-16.0); IMMATURE GRAN ABSOLUTE AUTO 0.02 K/mm3 (0.00-0.10); IMMATURE GRAN PERCENT AUTO 0 % (0-1); LYMPHOCYTES ABSOLUTE AUTO 1.13 K/mm3 (0.84-5.20); LYMPHOCYTES PERCENT AUTO 24 % (21-46); MONOCYTES ABSOLUTE AUTO 0.62 K/mm3 (0.16-1.47); MONOCYTES PERCENT AUTO 13 % (4-13); Mean Corpuscular HGB 29.9 pg (26.0-34.0); Mean Corpuscular HGB Conc 32.6 g/dL (31.5-36.5); Mean Corpuscular Volume 92 fL (80-100); Mean Platelet Volume 10.5 fL (9.1-12.4); NEUTROPHILS ABSOLUTE AUTO 2.46 K/mm3 (1.96-9.15); NEUTROPHILS PERCENT AUTO 51 % (41-73); Platelet Count 66 K/mm3 (150-400); RDW Coefficient Variation 15.6 % (11.7-14.2); RDW Standard Deviation 51.8 fL (35.1-46.3); Red Blood Cell Count 3.18 M/mm3 (3.80-5.20)
[2022-06-05 05:43] LABS: Bun/Creatinine Ratio 22.3 (12.0-20.0); Calcium, Blood 7.8 mg/dL (8.5-10.1); Creatinine, Blood 1.21 mg/dL (0.40-1.00); Potassium, Blood 3.9 mmol/L (3.5-5.5)
[2022-06-05] MEDS ORDERED: LACT10SY PO (11:22)
[2022-06-05] MEDS ORDERED: OMEP20ER PO (11:24)
--- NOTE | 2022-06-05 13:05 | NUR ---
DISCHARGE INSTRUCTIONS WRITTEN AND DISCUSSED WITH PT EXPRESSING UNDERSTANDING. SCRIPTS FAXED TO [facility]. TO [facility] VIA W/C.
== END 2022-06-05 12:10 | disposition home health service (06) | DRG 432 ==
LOC: ER 18:48 → ICUW 23:16 → PCU 06-03 17:54 → MEDS 06-04 18:12
PROVIDERS: Internal Medicine; Internal Medicine Gastroenterology; Nurse Practitioner Acute Care; Student in an Organized Health Care Education/Training Program; ADMIT Internal Medicine
PROC: 30233N1 Transfusion of Nonautologous Red Blood Cells into Peripheral Vein, Percutaneous Approach (ICD-10-PCS; principal; 2022-06-01)
PROC: 30233N1 Transfusion of Nonautologous Red Blood Cells into Peripheral Vein, Percutaneous Approach (ICD-10-PCS; 2022-06-02)
PROC: 0DJ08ZZ Inspection of Upper Intestinal Tract, Via Natural or Artificial Opening Endoscopic (ICD-10-PCS; 2022-06-02)
PROC: 0W9G3ZZ Drainage of Peritoneal Cavity, Percutaneous Approach (ICD-10-PCS; 2022-06-03)
PROC: 0W9B30Z Drainage of Left Pleural Cavity with Drainage Device, Percutaneous Approach (ICD-10-PCS; 2022-06-03)
DX: K70.31 Alcoholic cirrhosis of liver with ascites (principal); I85.11 Secondary esophageal varices with bleeding; D61.818 Other pancytopenia; J91.8 Pleural effusion in other conditions classified elsewhere; K76.6 Portal hypertension; K21.9 Gastro-esophageal reflux disease without esophagitis; J45.909 Unspecified asthma, uncomplicated; K44.9 Diaphragmatic hernia without obstruction or gangrene; K31.89 Other diseases of stomach and duodenum; F41.9 Anxiety disorder, unspecified; I12.9 Hypertensive chronic kidney disease with stage 1 through stage 4 chronic kidney disease, or unspecified chronic kidney disease; R01.1 Cardiac murmur, unspecified; N18.30 Chronic kidney disease, stage 3 unspecified; K80.20 Calculus of gallbladder without cholecystitis without obstruction; E87.6 Hypokalemia; I35.0 Nonrheumatic aortic (valve) stenosis; E78.5 Hyperlipidemia, unspecified; Z79.899 Other long term (current) drug therapy
CPT/HCPCS: 32555; 36415; 36430; 49083; 71045; 71046; 76700; 80048; 80053; 82247; 82272; 82945; 83615; 83690; 83735; 83986; 84155; 84157; 85014; 85018; 85025; 85610; 85730; 86850; 86900; 86901; 86923; 87070; 87075; 87205; 88108; 88305; 88342; 89051; 93005; 93010; 93306; 96365; 96366; 96367; 96368; 96376; 97110; 97161; 97165; 97535; 99285-25; A9270; C1751; C9113; J0171; J0696; J1430; J1940; J2001; J2354; J2405; J2704; J3475; J7030; J7050; P9016

== ENCOUNTER 2022-06-18 11:06 | Emergency (ER) | payer MEDICARE, OTHER ==
[~2022-06-18] VITALS: Ht 157.5 cm; Wt 61.2 kg
[2022-06-18 11:34] LABS: BASOPHILS ABSOLUTE AUTO 0.05 K/mm3 (0.00-0.23); BASOPHILS PERCENT AUTO 1 % (0-2); EOSINOPHILS ABSOLUTE AUTO 0.17 K/mm3 (0.00-0.68); EOSINOPHILS PERCENT AUTO 4 % (0-6); Hematocrit 29.6 % (33.0-51.0); Hemoglobin 9.4 g/dL (11.5-16.0); IMMATURE GRAN ABSOLUTE AUTO 0.01 K/mm3 (0.00-0.10); IMMATURE GRAN PERCENT AUTO 0 % (0-1); LYMPHOCYTES PERCENT AUTO 11 % (21-46); MONOCYTES ABSOLUTE AUTO 0.24 K/mm3 (0.16-1.47); MONOCYTES PERCENT AUTO 5 % (4-13); Mean Corpuscular HGB 30.7 pg (26.0-34.0); Mean Corpuscular HGB Conc 31.8 g/dL (31.5-36.5); Mean Corpuscular Volume 97 fL (80-100); Mean Platelet Volume 10.3 fL (9.1-12.4); NEUTROPHILS ABSOLUTE AUTO 3.55 K/mm3 (1.96-9.15); NEUTROPHILS PERCENT AUTO 79 % (41-73); Platelet Count 138 K/mm3 (150-400); RDW Coefficient Variation 19.9 % (11.7-14.2); RDW Standard Deviation 68.4 fL (35.1-46.3); Red Blood Cell Count 3.06 M/mm3 (3.80-5.20); White Blood Cell Count 4.52 K/mm3 (4.00-11.30)
[2022-06-18 12:04] LABS: Influenza A, PCR NEGATIVE (NEGATIVE); Influenza B, PCR NEGATIVE (NEGATIVE); Resp Syncytial Virus, PCR NEGATIVE (NEGATIVE); SARS-Cov-2 (COVID-19) PCR, MMC NEGATIVE (NEGATIVE)
[2022-06-18 12:06] LABS: Albumin, Blood 2.3 g/dL (3.4-5.0); Albumin/Globulin Ratio 0.5 (0.8-1.8); Bilirubin, Total 2.2 mg/dL (0.1-1.0); Calcium, Blood 8.6 mg/dL (8.5-10.1); Creatinine, Blood 1.05 mg/dL (0.40-1.00); Potassium, Blood 4.8 mmol/L (3.5-5.5); Total Protein, Blood 7.3 g/dL (6.4-8.2)
[2022-06-18 15:26] LABS: Source, Urine Clean Catch
[2022-06-18] MEDS ORDERED: ONDA4ODT MM (15:46)
[2022-06-18 15:54] LABS: Appearance, Urine Clear (Clear); Bilirubin, Urine Neg (Neg); Blood, Urine Neg (Neg); Color, Urine Amber (P-Yellow); Glucose Qualitative, Urine Neg (Neg); Ketones, Urine 1+ (Neg); Leukocyte Esterase, Urine Neg (Neg); Nitrite, Urine Neg (Neg); Protein, Urine 1+ (Neg); Specific Gravity, Urine 1.025 (1.003-1.022); Urobilinogen, Urine NORM (Normal)
== END 2022-06-18 16:00 | disposition home or self-care (01) ==
LOC: ER 11:06
PROVIDERS: Physician Assistant
DX: R11.2 Nausea with vomiting, unspecified (principal); J45.909 Unspecified asthma, uncomplicated; K21.9 Gastro-esophageal reflux disease without esophagitis; I10 Essential (primary) hypertension; Z79.899 Other long term (current) drug therapy; Z20.822 Contact with and (suspected) exposure to COVID-19
CPT/HCPCS: 0241U; 36415; 80053; 85025; J7030

== ENCOUNTER 2022-06-22 14:34 | Inpatient (IN) | payer MEDICARE, OTHER ==
[~2022-06-22] VITALS: Ht 157.5 cm; Wt 65.6 kg
[~2022-06-22 14:34] MED LIST changes: -SPIR50 PO
[2022-06-22 15:06] LABS: BASOPHILS ABSOLUTE AUTO 0.05 K/mm3 (0.00-0.23); BASOPHILS PERCENT AUTO 1 % (0-2); EOSINOPHILS ABSOLUTE AUTO 0.12 K/mm3 (0.00-0.68); EOSINOPHILS PERCENT AUTO 2 % (0-6); Hematocrit 23.8 % (33.0-51.0); Hemoglobin 7.9 g/dL (11.5-16.0); IMMATURE GRAN ABSOLUTE AUTO 0.02 K/mm3 (0.00-0.10); IMMATURE GRAN PERCENT AUTO 0 % (0-1); LYMPHOCYTES ABSOLUTE AUTO 1.27 K/mm3 (0.84-5.20); LYMPHOCYTES PERCENT AUTO 17 % (21-46); MONOCYTES ABSOLUTE AUTO 0.53 K/mm3 (0.16-1.47); MONOCYTES PERCENT AUTO 7 % (4-13); Mean Corpuscular HGB 31.5 pg (26.0-34.0); Mean Corpuscular HGB Conc 33.2 g/dL (31.5-36.5); Mean Corpuscular Volume 95 fL (80-100); Mean Platelet Volume 9.7 fL (9.1-12.4); NEUTROPHILS ABSOLUTE AUTO 5.62 K/mm3 (1.96-9.15); NEUTROPHILS PERCENT AUTO 74 % (41-73); Platelet Count 142 K/mm3 (150-400); RDW Coefficient Variation 20.4 % (11.7-14.2); RDW Standard Deviation 69.1 fL (35.1-46.3); Red Blood Cell Count 2.51 M/mm3 (3.80-5.20); White Blood Cell Count 7.61 K/mm3 (4.00-11.30)
[2022-06-22 15:15] LABS: Albumin/Globulin Ratio 0.5 (0.8-1.8); Bilirubin, Total 1.9 mg/dL (0.1-1.0); Calcium, Blood 8.2 mg/dL (8.5-10.1); Creatinine, Blood 0.91 mg/dL (0.40-1.00); Globulin, Blood 4.4 g/dL (2.2-4.0); Potassium, Blood 3.2 mmol/L (3.5-5.5); Total Protein, Blood 6.4 g/dL (6.4-8.2)
[2022-06-22 17:04] LABS: International Normalized Ratio 1.36
--- NOTE | 2022-06-22 19:54 | NUR ---
ASSUMPTION OF CARE: PATIENT IS ALERT AND ORIENTED ABLE TO MAKE NEEDS KNOWN, CAN HAVE YULIYA DIFFICULTY WITH HISTORY, BUT IS MOSTLY CORRECT. PLEASANT, UNSERSTANDS SITUATION WELL. SOME GEN WEAK, 1 PERSON SBA.BSC. PATIENT OXYGENATION WELL ON RA. NOT VISIBLY SOB. DOES ENDORSE SOME MINOR SOB WITH EXERTION. PATIENT IS CURRENLTY SR TO ST, DENIES CHEST PAIN PRESSURE OR SOB. PATIENT ENDORSED TARRY STOOLS AND COFFE GROUND EMESIS. ONCE IN ED. NONE CURRENTLY. ABD BLOATING SEVERE NOT TENDER TO PALPATION, DENIES PAIN AT THIS TIME. NPO AT THIS TIME. NO ISSUES OBSERVED OR ENDORSED AT THIS TIME. DNR/DNI. CONCERNS ARE POTENTIAL NEED FOR K+ REPLACEMENT, AND GI CONSULT.
[2022-06-23 03:37] LABS: BASOPHILS ABSOLUTE AUTO 0.06 K/mm3 (0.00-0.23); BASOPHILS PERCENT AUTO 1 % (0-2); EOSINOPHILS ABSOLUTE AUTO 0.22 K/mm3 (0.00-0.68); EOSINOPHILS PERCENT AUTO 4 % (0-6); Hematocrit 20.7 % (33.0-51.0); Hemoglobin 6.6 g/dL (11.5-16.0); IMMATURE GRAN ABSOLUTE AUTO 0.01 K/mm3 (0.00-0.10); IMMATURE GRAN PERCENT AUTO 0 % (0-1); LYMPHOCYTES PERCENT AUTO 17 % (21-46); MONOCYTES ABSOLUTE AUTO 0.46 K/mm3 (0.16-1.47); MONOCYTES PERCENT AUTO 8 % (4-13); Mean Corpuscular HGB 30.8 pg (26.0-34.0); Mean Corpuscular HGB Conc 31.9 g/dL (31.5-36.5); Mean Corpuscular Volume 97 fL (80-100); Mean Platelet Volume 9.6 fL (9.1-12.4); NEUTROPHILS ABSOLUTE AUTO 4.27 K/mm3 (1.96-9.15); NEUTROPHILS PERCENT AUTO 71 % (41-73); Platelet Count 103 K/mm3 (150-400); RDW Coefficient Variation 20.5 % (11.7-14.2); Red Blood Cell Count 2.14 M/mm3 (3.80-5.20); White Blood Cell Count 6.02 K/mm3 (4.00-11.30)
[2022-06-23 04:09] LABS: Albumin, Blood 1.8 g/dL (3.4-5.0); Albumin/Globulin Ratio 0.5 (0.8-1.8); Bilirubin, Total 1.6 mg/dL (0.1-1.0); Bun/Creatinine Ratio 33.4 (12.0-20.0); Calcium, Blood 7.9 mg/dL (8.5-10.1); Creatinine, Blood 0.96 mg/dL (0.40-1.00); Globulin, Blood 3.7 g/dL (2.2-4.0); Potassium, Blood 3.4 mmol/L (3.5-5.5); Total Protein, Blood 5.5 g/dL (6.4-8.2)
--- NOTE | 2022-06-23 05:09 | NUR ---
ONLY CHANGES FROM ASSUMPTION OF CARE IS THE PATIENT HAS A VERY NUMEROUS AMOUNT OF WATERY STOOLS AFTER THE LACTULOSE. IMPROVING WITH TIME, WOULD NOT RECOMMEND FURTHER LACTULOSE. PATIENT HAS IMPROVED HR.
[2022-06-23 12:19] LABS: Hemoglobin 9.6 g/dL (11.5-16.0)
--- NOTE | 2022-06-23 15:33 | NUR ---
PT TAKEN TO IMAGING AT THIS TIME FOR PARACENTESIS PROCEDURE
--- NOTE | 2022-06-23 16:33 | NUR ---
PT IS NOW TAKEN TO DAY SURGERY FOR UPPER SCOPE, PARACENTESIS WAS NOT DONE PT WAS NOT CONSENTABLE PER RADIOLOGIST, PROVIDER WAS INFORMED AND WAS OKAY TO RE ATTEMPT IN AM.
--- NOTE | 2022-06-23 16:47 | NUR ---
PT BROUGHT FROM FLOOR TO DAY SURGERY FOR PROCEDURE. Pre-Op teaching done. Pt verbalizes understanding.
--- NOTE | 2022-06-23 17:58 | NUR ---
PT SUMMARY: PT ALERT AND ORIENTED X3, FORGETFUL AT TIMES ABLE TO MAKE NEEDS KNOWN. VITALS HRR SR 90-110'S, SBP ELEVATED 140-160'S, AFEBRILE SATS ABOVE 95% ON RA PT C/O SOB WITH EXERTION GETS A LITTLE WHEEZY AT TIMES ALSO HAS PAIN IN THE LOWER ABD WITH AMBULATION WAS DISCUSSED TO DR PAYNE ABOUT PT'S COMPLAIN DECIDED TO GET PARACENTESIS DONE TODAY PT AWARE OF THE PROCEDURE SHES DONE IT BEFORE ORDERED FOR BREATHING TX PER RT WELL, PT WAS TAKEN TO IMAGING TO GET IT DONE APPARENTLY WAS NOT ABLE TO GET IT DONE TODAY PT WAS NOT CONSENTABLE, WILL FF-UP IN AM. PT CURRENTLY GETTING UPPER GI SCOPE DONE. PT HAD 2 EPISODES OF LOOSE BLACK BM, PT REFUSED LACTULOSE. 1UPRBC GIVEN THIS AM FF-UP HGB WENT UP TO 9.6. PT SBA FOR TRANSFERS. NO OTHER ISSUES ENCOUNTERED FOR THE SHIFT WILL REPORT TO ONCOMING SHIFT
--- NOTE | 2022-06-23 18:45 | NUR ---
PT ARRIVED BACK IN THE ROOM FORM DAY SURGERY, .PROCEDURE GOT PUSHED TO GET DONE IN AM. PT STARTED ON CLEAR LIQUID DIET PER INSTRUCTION THEN NPO AFTER BREAKFAST. PT IN BED EATING DINNER NOW, TOLERATING. WILL CONTINUE TO MONITOR
--- NOTE | 2022-06-24 02:07 | NUR ---
PHYSICIAN COMMUNICATION CONTACTED RRT RESIDENT, DR ARMSTRONG, TO NOTIFY HER THAT THE PATIENT IS EXPERIENCING 8/10 R UPPER ABDOMINAL PAIN IN THE RIB AREA. DR ARMSTRONG TO PUT IN ORDERS.
--- NOTE | 2022-06-24 05:15 | NUR ---
SHIFT SUMMARY PATIENT ALERT AND ORIENTED X4. USES CALL LIGHT APPROPRIATELY AND ABLE TO MAKE HER NEEDS KNOWN. PATIENT MEDICATED PER EMAR FOR PAIN IN HER R UPPER ABDOMEN. VITAL SIGNS STABLE. PATIENT WEAK ON FEET BUT ABLE TO AMBULATE TO BATHROOM WITH MINIMAL ASSISTANCE. PATIENT HAD NO COMPLAINTS OF SHORTNESS OF BREATH, SATING IN THE 90'S ON ROOM AIR. TELEMETRY IS NORMAL SINUS RHYTHM. PATIENT'S ABDOMEN DISTENDED AND FIRM, BILATERAL LOWER EXTREMITES HAVE 3+ EDEMA. NO ACUTE ISSUES NOTED OVERNIGHT. CALL LIGHT WITHIN REACH.
--- NOTE | 2022-06-24 07:30 | NUR ---
ASSUMED CARE: PT RESTING QUIETLY AT THIS TIME. NSR ON TELE. ON RA. NO ACUTE NEEDS OR CONCERNS.
--- NOTE | 2022-06-24 08:02 | NUR ---
PT REQUESTED DNR BAND REMOVED AND STATED THAT IF "ANYTHING HAPPENS" SHE WANTS STAFF TO MAKE 1 ATTEMPT TO RESCUSITATE. UPON FURTHER CLARIFICATION PT MEANT THAT 1 ATTEMPT FOR ROSC AND IF ROSC IS GAINED AND LOST, DO NOT ATTEMPT AGAIN. WILL DISCUSS FURTHER WITH
[2022-06-24 08:05] LABS: BASOPHILS ABSOLUTE AUTO 0.04 K/mm3 (0.00-0.23); BASOPHILS PERCENT AUTO 1 % (0-2); EOSINOPHILS ABSOLUTE AUTO 0.23 K/mm3 (0.00-0.68); EOSINOPHILS PERCENT AUTO 8 % (0-6); Hematocrit 21.5 % (33.0-51.0); IMMATURE GRAN ABSOLUTE AUTO 0.01 K/mm3 (0.00-0.10); IMMATURE GRAN PERCENT AUTO 0 % (0-1); LYMPHOCYTES ABSOLUTE AUTO 0.44 K/mm3 (0.84-5.20); LYMPHOCYTES PERCENT AUTO 15 % (21-46); MONOCYTES ABSOLUTE AUTO 0.28 K/mm3 (0.16-1.47); MONOCYTES PERCENT AUTO 9 % (4-13); Mean Corpuscular HGB 30.4 pg (26.0-34.0); Mean Corpuscular HGB Conc 32.6 g/dL (31.5-36.5); Mean Corpuscular Volume 94 fL (80-100); Mean Platelet Volume 9.8 fL (9.1-12.4); NEUTROPHILS PERCENT AUTO 67 % (41-73); Platelet Count 87 K/mm3 (150-400); RDW Coefficient Variation 21.7 % (11.7-14.2); RDW Standard Deviation 73.2 fL (35.1-46.3)
[2022-06-24 08:19] LABS: Albumin, Blood 1.7 g/dL (3.4-5.0); Albumin/Globulin Ratio 0.5 (0.8-1.8); Bilirubin, Total 1.1 mg/dL (0.1-1.0); Bun/Creatinine Ratio 26.1 (12.0-20.0); Calcium, Blood 7.7 mg/dL (8.5-10.1); Creatinine, Blood 1.19 mg/dL (0.40-1.00); Globulin, Blood 3.6 g/dL (2.2-4.0); Potassium, Blood 3.7 mmol/L (3.5-5.5); Total Protein, Blood 5.3 g/dL (6.4-8.2)
--- NOTE | 2022-06-24 10:00 | NUR ---
PT TAKEN TO PARACENTESIS AT THIS TIME VIA WHEELCHAIR BY IMAGING STAFF
--- NOTE | 2022-06-24 11:07 | NUR ---
PT RETURNED FROM IMAGING VIA WHEEL CHAIR. NO ACUTE NEEDS OR CONCERNS.
--- NOTE | 2022-06-24 11:25 | NUR ---
DR PAYNE CAME TO BEDSIDE TO SEE PT. DISCUSSED CODE STATUS AND STATED HE WOULD CHANGE FOR PT. CALL TO ULTRASOUND TO VERIFY AMOUNT OF FLUID REMOVED IN PARACENTESIS. 2L REMOVED. CALL TO PHARMACY TO MAKE THEM AWARE FOR ALBUMIN ORDER.
[2022-06-24 11:33] LABS: Albumin, Body Fluid 0.1 g/dL
[2022-06-24 11:36] LABS: Protein, Body Fluid 0.2 g/dL
[2022-06-24 11:48] LABS: Automated BF WBC Count 0.032 K/mm3 (0-999)
[2022-06-24 11:54] LABS: Body Fluid WBC Count 32 /mm3 (0-999)
[2022-06-24 12:04] LABS: RBC Count, Body Fluid 43 /mm3 (0-0)
--- NOTE | 2022-06-24 12:10 | NUR ---
PT RETURNED FROM PARACENTESIS AND THIS RN INFORMED HER THAT SHE IS STILL NPO FOR EGD THIS AFTERNOON. AFTER A FEW MINUTES PT POINTED TO NAHUM BARS ON TABLE AND ASKED IF SHE COULD HAVE SOME. REMINDED HER THAT SHE IS NPO AND REMOVED CANDY TO OTHER SIDE OF BED.
[2022-06-24 12:22] LABS: Total Cell Count, Body Fluid 100
[2022-06-24 12:23] LABS: Appearance, Body Fluid Clear (Clear); Color, Body Fluid L Yellow (None-Yellow)
--- NOTE | 2022-06-24 17:10 | NUR ---
PT TAKEN TO DAY SURGERY VIA [facility] BY STAFF MEMBER
--- NOTE | 2022-06-24 17:20 | NUR ---
SHIFT SUMMARY: PT CURRENTLY IN DAY SURGERY GETTING EGD DONE AT THIS TIME. PARACENTESIS DONE AND 2L REMOVED OF FLUID. UP TO RESTROOM SEVERAL TIMES WITH MINIMAL ASSISTANCE. BED ALARM ON DUE TO OCCASIONAL CONFUSION. SANDOSTATIN RUNNING UPON TRANSFER TO DAY SURGERY
--- NOTE | 2022-06-24 17:20 | NUR ---
History, Chart, Medications and Allergies reviewed before start of procedure. Lungs clear T/O to Auscultation. Patient confirms NPO status and agrees with scheduled surgery. Pre-Op teaching done. Pt verbalizes understanding. PT WITH ASCITES BUT ABD IS SOFT. DENIES PAIN OR SOB.
--- NOTE | 2022-06-24 17:42 | NUR ---
06/24/22 1742 Josette Zamarripa History, Chart, Medications and Allergies reviewed before start of procedure. MONITOR INTACT WITH CONTINUOUS PULSE OXIMETRY AND INTERMITTENT BP. 3-LEAD EKG REVIEWED WITH PHYSICIAN PRIOR TO START OF PROCEDURE. Bite Block Placed O2 VIA N/C INTACT THROUGHOUT SEDATION/PROCEDURE. See Anesthesia record FOR DR. HANLEY
--- NOTE | 2022-06-24 17:58 | NUR ---
REPORT TO PCU 2 NURSE. PT IN NO ACUTE DISTRESS.
--- NOTE | 2022-06-25 05:12 | NUR ---
SHIFT SUMMARY PT REMAINS ALERT AND ORIENTED X4, ABLE TO FOLLOW COMMANDS AND MAKE NEEDS KNOWN. FORGETFUL AT TIMES, ASKS REPEATED QUESTIONS. BP AND HR STABLE, AFEBRILE, SATS >98% ON ROOM AIR. OCTREOTIDE GTT IN R AC. PT REMAINS ON CLEAR LIQUID DIET. SBA TO AND FROM BATHROOM. NO EPISODES OF BLOODY STOOLS THIS SHIFT, NO COMPLAINTS OF NAUSEA/VOMITING. PT SLEPT WELL THROUGHOUT THE NIGHT. BED IN LOW, CALL LIGHT IN REACH, ALARM ON, WILL REPORT TO ONCOMING RN.
[2022-06-25 05:51] LABS: BASOPHILS ABSOLUTE AUTO 0.04 K/mm3 (0.00-0.23); BASOPHILS PERCENT AUTO 2 % (0-2); EOSINOPHILS ABSOLUTE AUTO 0.26 K/mm3 (0.00-0.68); EOSINOPHILS PERCENT AUTO 10 % (0-6); Hematocrit 27.1 % (33.0-51.0); Hemoglobin 9.1 g/dL (11.5-16.0); IMMATURE GRAN PERCENT AUTO 0 % (0-1); LYMPHOCYTES ABSOLUTE AUTO 0.59 K/mm3 (0.84-5.20); LYMPHOCYTES PERCENT AUTO 23 % (21-46); MONOCYTES ABSOLUTE AUTO 0.29 K/mm3 (0.16-1.47); MONOCYTES PERCENT AUTO 11 % (4-13); Mean Corpuscular HGB 30.6 pg (26.0-34.0); Mean Corpuscular HGB Conc 33.6 g/dL (31.5-36.5); Mean Corpuscular Volume 91 fL (80-100); Mean Platelet Volume 10.1 fL (9.1-12.4); NEUTROPHILS ABSOLUTE AUTO 1.44 K/mm3 (1.96-9.15); NEUTROPHILS PERCENT AUTO 55 % (41-73); Platelet Count 78 K/mm3 (150-400); RDW Coefficient Variation 20.3 % (11.7-14.2); RDW Standard Deviation 65.8 fL (35.1-46.3); Red Blood Cell Count 2.97 M/mm3 (3.80-5.20); White Blood Cell Count 2.62 K/mm3 (4.00-11.30)
[2022-06-25 06:56] LABS: Albumin, Blood 1.7 g/dL (3.4-5.0); Albumin/Globulin Ratio 0.5 (0.8-1.8); Bilirubin, Total 1.1 mg/dL (0.1-1.0); Bun/Creatinine Ratio 23.5 (12.0-20.0); Calcium, Blood 7.6 mg/dL (8.5-10.1); Creatinine, Blood 1.15 mg/dL (0.40-1.00); Globulin, Blood 3.5 g/dL (2.2-4.0); Potassium, Blood 3.5 mmol/L (3.5-5.5); Total Protein, Blood 5.2 g/dL (6.4-8.2)
[2022-06-25] MEDS ORDERED: Carafate1 GM/10 ML PO (12:47)
== END 2022-06-25 13:14 | disposition home or self-care (01) | DRG 369 ==
LOC: ER 14:34 → PCU 17:33
PROVIDERS: Internal Medicine; Internal Medicine Gastroenterology; Student in an Organized Health Care Education/Training Program; ADMIT Family Medicine
PROC: 30233N1 Transfusion of Nonautologous Red Blood Cells into Peripheral Vein, Percutaneous Approach (ICD-10-PCS; 2022-06-22)
PROC: 0W9G3ZZ Drainage of Peritoneal Cavity, Percutaneous Approach (ICD-10-PCS; 2022-06-24)
PROC: 0DJ08ZZ Inspection of Upper Intestinal Tract, Via Natural or Artificial Opening Endoscopic (ICD-10-PCS; principal; 2022-06-24 17:00)
DX: K20.91 Esophagitis, unspecified with bleeding (principal); D61.818 Other pancytopenia; K76.6 Portal hypertension; I85.10 Secondary esophageal varices without bleeding; K70.31 Alcoholic cirrhosis of liver with ascites; K31.89 Other diseases of stomach and duodenum; Z66 Do not resuscitate; N18.30 Chronic kidney disease, stage 3 unspecified; D63.1 Anemia in chronic kidney disease; K31.819 Angiodysplasia of stomach and duodenum without bleeding; K44.9 Diaphragmatic hernia without obstruction or gangrene; K21.9 Gastro-esophageal reflux disease without esophagitis; J45.909 Unspecified asthma, uncomplicated; E87.6 Hypokalemia; I12.9 Hypertensive chronic kidney disease with stage 1 through stage 4 chronic kidney disease, or unspecified chronic kidney disease; F41.9 Anxiety disorder, unspecified; E78.5 Hyperlipidemia, unspecified; I35.0 Nonrheumatic aortic (valve) stenosis; Z98.890 Other specified postprocedural states; Z79.899 Other long term (current) drug therapy; Z79.01 Long term (current) use of anticoagulants
CPT/HCPCS: 36415; 36430; 49083; 71045; 76705; 80053; 82042; 83690; 84157; 85014; 85018; 85025; 85610; 86850; 86900; 86901; 86923; 87070; 87205; 89051; 93005; 93010; 94760; 96365; 96375; 99285-25; A9270; C9113; J0696; J2354; J2405; J2704; J3480; J7030; J7040; J7050; J7120; P9016

== ENCOUNTER 2022-07-08 02:28 | Inpatient (IN) | payer MEDICARE, OTHER ==
[~2022-07-08] VITALS: Ht 157.5 cm; Wt 60.3 kg
[~2022-07-08 02:28] MED LIST changes: +Carafate1 GM/10 ML PO
[2022-07-08 03:00] LABS: BASOPHILS ABSOLUTE AUTO 0.05 K/mm3 (0.00-0.23); BASOPHILS PERCENT AUTO 1 % (0-2); EOSINOPHILS ABSOLUTE AUTO 0.19 K/mm3 (0.00-0.68); EOSINOPHILS PERCENT AUTO 4 % (0-6); Hematocrit 24.3 % (33.0-51.0); Hemoglobin 8.1 g/dL (11.5-16.0); IMMATURE GRAN ABSOLUTE AUTO 0.02 K/mm3 (0.00-0.10); IMMATURE GRAN PERCENT AUTO 0 % (0-1); LYMPHOCYTES ABSOLUTE AUTO 0.85 K/mm3 (0.84-5.20); LYMPHOCYTES PERCENT AUTO 16 % (21-46); MONOCYTES ABSOLUTE AUTO 0.41 K/mm3 (0.16-1.47); MONOCYTES PERCENT AUTO 8 % (4-13); Mean Corpuscular HGB 31.3 pg (26.0-34.0); Mean Corpuscular HGB Conc 33.3 g/dL (31.5-36.5); Mean Corpuscular Volume 94 fL (80-100); Mean Platelet Volume 9.2 fL (9.1-12.4); NEUTROPHILS PERCENT AUTO 71 % (41-73); Platelet Count 123 K/mm3 (150-400); RDW Coefficient Variation 21.9 % (11.7-14.2); RDW Standard Deviation 72.9 fL (35.1-46.3); Red Blood Cell Count 2.59 M/mm3 (3.80-5.20); White Blood Cell Count 5.32 K/mm3 (4.00-11.30)
[2022-07-08 03:18] LABS: Albumin, Blood 2.1 g/dL (3.4-5.0); Albumin/Globulin Ratio 0.5 (0.8-1.8); Bilirubin, Total 1.2 mg/dL (0.1-1.0); Bun/Creatinine Ratio 28.7 (12.0-20.0); Calcium, Blood 8.1 mg/dL (8.5-10.1); Creatinine, Blood 1.29 mg/dL (0.40-1.00); Globulin, Blood 4.2 g/dL (2.2-4.0); Potassium, Blood 3.8 mmol/L (3.5-5.5); Total Protein, Blood 6.3 g/dL (6.4-8.2)
[2022-07-08 07:56] LABS: International Normalized Ratio 1.26
[2022-07-08] MEDS ORDERED: HYDPAM50 PO (10:46)
[2022-07-08] MEDS ORDERED: RIFA550T2 PO (10:48)
[2022-07-08] MEDS ORDERED: Inderal 20 mg T20 MG PO (10:48)
--- NOTE | 2022-07-08 11:36 | NUR ---
STOOL PT HAD A SMALL, GELATENIOUS MAROON STOOL. PROTONIX and SANDOSTATIN INFUSING PER ORDER. CONTINUE POC.
--- NOTE | 2022-07-08 17:09 | NUR ---
EVENING NOTE PT AWAKE WATCHING THE SNOW FALL. SINCE TRANSFER TO FROM ER SHE HAS HAD 1 MAROON, SMALL STOOL. PROTONIX GTT AT 10 ML/HR AND SANDOSTATIN AT 25 ML/HR INFUSING. VSS. SHE DENIES DISCOMFORT, BLOATING, CRAMPING OR PAIN. AMBULATING WITH SBA D/T PUMPS. TOLERATING CLEAR LIQUID WELL. MOSTLY SIPPING ON ICE WATER. CONTINUE POC.
--- NOTE | 2022-07-09 04:24 | NUR ---
CONSTRUCTION PLUMBER SUMMARY NO ACUTE EVENTS THROUGHOUT THE NIGHT. A&OX4. PATIENT EFFECTIVELY COMMUNICATES NEEDS. VSS. RR EVEN AND UNLABORED ON RA. SANDROSTATIN AND PROTONIX INFUSING PER EMAR. NO PAIN, NAUSEA, OR VOMITING REPORTED THIS SHIFT. LAST REPORTED BM WAS ON DAY SHIFT, 07/08. BED LOW AND LOCKED. CALL LIGHT WITHIN REACH. THIS RN WILL CONTINUE TO MONITOR.
[2022-07-09 05:11] LABS: BASOPHILS ABSOLUTE AUTO 0.05 K/mm3 (0.00-0.23); BASOPHILS PERCENT AUTO 1 % (0-2); EOSINOPHILS ABSOLUTE AUTO 0.28 K/mm3 (0.00-0.68); EOSINOPHILS PERCENT AUTO 8 % (0-6); Hematocrit 20.7 % (33.0-51.0); Hemoglobin 6.9 g/dL (11.5-16.0); IMMATURE GRAN ABSOLUTE AUTO 0.01 K/mm3 (0.00-0.10); IMMATURE GRAN PERCENT AUTO 0 % (0-1); LYMPHOCYTES ABSOLUTE AUTO 0.57 K/mm3 (0.84-5.20); LYMPHOCYTES PERCENT AUTO 16 % (21-46); MONOCYTES ABSOLUTE AUTO 0.33 K/mm3 (0.16-1.47); MONOCYTES PERCENT AUTO 9 % (4-13); Mean Corpuscular HGB 31.4 pg (26.0-34.0); Mean Corpuscular HGB Conc 33.3 g/dL (31.5-36.5); Mean Corpuscular Volume 94 fL (80-100); Mean Platelet Volume 9.1 fL (9.1-12.4); NEUTROPHILS PERCENT AUTO 65 % (41-73); Platelet Count 83 K/mm3 (150-400); RDW Coefficient Variation 22.3 % (11.7-14.2); RDW Standard Deviation 73.8 fL (35.1-46.3); White Blood Cell Count 3.54 K/mm3 (4.00-11.30)
[2022-07-09 05:37] LABS: Albumin, Blood 1.7 g/dL (3.4-5.0); Albumin/Globulin Ratio 0.5 (0.8-1.8); Bilirubin, Total 1.2 mg/dL (0.1-1.0); Bun/Creatinine Ratio 26.6 (12.0-20.0); Calcium, Blood 7.8 mg/dL (8.5-10.1); Creatinine, Blood 1.39 mg/dL (0.40-1.00); Globulin, Blood 3.7 g/dL (2.2-4.0); Potassium, Blood 3.6 mmol/L (3.5-5.5); Total Protein, Blood 5.4 g/dL (6.4-8.2)
--- NOTE | 2022-07-09 10:41 | NUR ---
PRBC #1 PT 1 ORDERED PRBC INFUSING. TOLERATING WELL. VSS. SHE IS UP TO BSC WITH 1 ASSIST D/T LINES. 1 LOOSE BM. BROWN IN COLOR. NO MAROON/RED NOTED. CONTINUE POC.
--- NOTE | 2022-07-09 12:21 | NUR ---
PRBC PRBC #1 COMPLETED WITHOUT ISSUE. NO S/S OF TRANSFUSION REACTION. CONTINUE POC.
[2022-07-09 13:30] LABS: Hematocrit 27.1 % (33.0-51.0); Hemoglobin 8.9 g/dL (11.5-16.0)
--- NOTE | 2022-07-09 17:23 | NUR ---
07/09/22 [address] WILLIAM; SEE ANESTHESIA RECORDS.
--- NOTE | 2022-07-09 17:56 | NUR ---
UPPER ENDO PT TAKEN TO DAY SURGERY FOR UPPER ENDOSCOPY. SHE WAS TRANSPORTED WITH PROTONIX AND SANDOSATIN INFUSING. CONTINUE POC.
--- NOTE | 2022-07-09 18:15 | NUR ---
EVENIN NOTE PT TRANSFERED TO DAY SURGERY FOR UPPER SCOPE. PT RECEIVED 1 UNIT PRBC. TOLERATED WELL. NO S/S OF TRANSFUSION REACTION. MULTIPLE LOOSE, ORANGE MUCOID STOOLS. PT ABLE TO TRANSFER SELF TO [facility] [place]. NO DIZZINESS. NO OBVIOUS MAROON BLOOD OR BLACK NOTED. DENIED NAUSEA OR VOMITING. PROTONIX GTT INFUSING AT 10 ML/HR AND SANDOSTATIN 25 ML/HR. RIGHT AC IV STARTED LEAKING. REMOVED WITH CANNULA INTACT. PRESSURE DRESSING APPLIED. PT ASKED FOR BREATHING TX FOR HER ASTHMA. DR PAYNE CALLED. ORDER RECEIVED. EDEMA BLE STABLE. LEGS ELEVATED. ABD ASCITES STABLE. CONTINUE POC.
--- NOTE | 2022-07-09 18:22 | NUR ---
EGD REPORT RECEIVED FROM DAY SURGERY NURSE. REALYED THAT STOPPING PROTONIX AND SANDOSTATIN PER DR SAMANIEGO. CONTINUE POC.
--- NOTE | 2022-07-09 18:47 | NUR ---
return endoscopy Pt arrived via [facility] accompanied by RN. Pt alert and smiling. IV gtt stopped. Pt able to transfer herself back to bed. vss. PT NPO until her gag returns. Continue POC>
[2022-07-09 21:06] LABS: Hematocrit 26.1 % (33.0-51.0); Hemoglobin 8.8 g/dL (11.5-16.0)
--- NOTE | 2022-07-10 04:26 | NUR ---
SENIOR HEALTH PHYSICS TECHNICIAN SUMMARY NO ACUTE EVENTS THROUGHOUT THE NIGHT. A&OX4. VSS. RR EVEN AND UNLABORED ON 2L O2 DUE TO DESATURATION DURING SLEEP. NO PAIN REPORTED THIS SHIFT. BED LOW AND LOCKED. CALL LIGHT WITHIN REACH. THIS RN WILL CONTINUE TO MONITOR. GAG REFLEX TESTED AND IS INTACT.
[2022-07-10 05:52] LABS: BASOPHILS ABSOLUTE AUTO 0.06 K/mm3 (0.00-0.23); BASOPHILS PERCENT AUTO 2 % (0-2); EOSINOPHILS PERCENT AUTO 9 % (0-6); Hematocrit 26.8 % (33.0-51.0); Hemoglobin 8.9 g/dL (11.5-16.0); IMMATURE GRAN ABSOLUTE AUTO 0.01 K/mm3 (0.00-0.10); IMMATURE GRAN PERCENT AUTO 0 % (0-1); LYMPHOCYTES ABSOLUTE AUTO 0.63 K/mm3 (0.84-5.20); LYMPHOCYTES PERCENT AUTO 18 % (21-46); MONOCYTES ABSOLUTE AUTO 0.29 K/mm3 (0.16-1.47); MONOCYTES PERCENT AUTO 8 % (4-13); Mean Corpuscular HGB 31.6 pg (26.0-34.0); Mean Corpuscular HGB Conc 33.2 g/dL (31.5-36.5); Mean Corpuscular Volume 95 fL (80-100); Mean Platelet Volume 9.1 fL (9.1-12.4); NEUTROPHILS ABSOLUTE AUTO 2.21 K/mm3 (1.96-9.15); NEUTROPHILS PERCENT AUTO 63 % (41-73); Platelet Count 82 K/mm3 (150-400); RDW Coefficient Variation 20.9 % (11.7-14.2); RDW Standard Deviation 70.5 fL (35.1-46.3); Red Blood Cell Count 2.82 M/mm3 (3.80-5.20)
[2022-07-10 09:29] LABS: Test Name CHEM PROF
[2022-07-10 12:39] LABS: Result SEE SEPERATE REPORT
[2022-07-10] MEDS ORDERED: PANT40 PO (13:09)
--- NOTE | 2022-07-10 14:46 | NUR ---
DISCHARGE SUMMARY PATIENT IS ALERT AND ORIENTED. PATIENT HAS HAD NO ACUTE EVENTS THIS SHIFT. VITAL SIGNS REVIEWED. PATIENT IS BEING DISCHARGED HOME AFTER EGD RESULTS CAME BACK WITH POSITIVE RESULTS. PATIENT IS BEING TRANSPORTED BY FRIEND HOME.
== END 2022-07-10 14:38 | disposition home or self-care (01) | DRG 432 ==
LOC: ER 02:28 → ERHOLD 02:29 → MEDS 07:06
PROVIDERS: Student in an Organized Health Care Education/Training Program; ADMIT Internal Medicine
PROC: 30233N1 Transfusion of Nonautologous Red Blood Cells into Peripheral Vein, Percutaneous Approach (ICD-10-PCS; 2022-07-09)
PROC: 0DJ08ZZ Inspection of Upper Intestinal Tract, Via Natural or Artificial Opening Endoscopic (ICD-10-PCS; principal; 2022-07-09 11:15)
DX: K70.31 Alcoholic cirrhosis of liver with ascites (principal); I85.11 Secondary esophageal varices with bleeding; K22.11 Ulcer of esophagus with bleeding; K31.811 Angiodysplasia of stomach and duodenum with bleeding; D61.818 Other pancytopenia; K76.6 Portal hypertension; J90 Pleural effusion, not elsewhere classified; N17.9 Acute kidney failure, unspecified; N18.30 Chronic kidney disease, stage 3 unspecified; D63.1 Anemia in chronic kidney disease; K44.9 Diaphragmatic hernia without obstruction or gangrene; K31.89 Other diseases of stomach and duodenum; E11.22 Type 2 diabetes mellitus with diabetic chronic kidney disease; K21.9 Gastro-esophageal reflux disease without esophagitis; I12.9 Hypertensive chronic kidney disease with stage 1 through stage 4 chronic kidney disease, or unspecified chronic kidney disease; J45.909 Unspecified asthma, uncomplicated; F41.9 Anxiety disorder, unspecified; K72.10 Chronic hepatic failure without coma; I35.0 Nonrheumatic aortic (valve) stenosis; E78.5 Hyperlipidemia, unspecified; Z98.890 Other specified postprocedural states; Z79.899 Other long term (current) drug therapy; Z79.01 Long term (current) use of anticoagulants
CPT/HCPCS: 36415; 36430; 74177; 80053; 85014; 85018; 85025; 85610; 86850; 86900; 86901; 86923; 94640; 94664; 94760; 96365-59; 96375; 96376; 99285-25; A9270; C9113; J0696; J2001; J2250; J2354; J2405; J2704; J2765; J7050; J7120; P9016; Q9967

== ENCOUNTER 2022-07-19 12:41 | Emergency (ER) | payer MEDICARE, OTHER ==
[~2022-07-19] VITALS: Ht 157.5 cm; Wt 62.6 kg
[~2022-07-19 12:41] MED LIST changes: +HYDPAM50 PO
[2022-07-19 13:13] LABS: BASOPHILS ABSOLUTE AUTO 0.05 K/mm3 (0.00-0.23); BASOPHILS PERCENT AUTO 1 % (0-2); EOSINOPHILS ABSOLUTE AUTO 0.29 K/mm3 (0.00-0.68); EOSINOPHILS PERCENT AUTO 6 % (0-6); Hematocrit 30.2 % (33.0-51.0); Hemoglobin 9.6 g/dL (11.5-16.0); IMMATURE GRAN ABSOLUTE AUTO 0.01 K/mm3 (0.00-0.10); IMMATURE GRAN PERCENT AUTO 0 % (0-1); LYMPHOCYTES ABSOLUTE AUTO 1.09 K/mm3 (0.84-5.20); LYMPHOCYTES PERCENT AUTO 23 % (21-46); MONOCYTES ABSOLUTE AUTO 0.49 K/mm3 (0.16-1.47); MONOCYTES PERCENT AUTO 11 % (4-13); Mean Corpuscular HGB 31.5 pg (26.0-34.0); Mean Corpuscular HGB Conc 31.8 g/dL (31.5-36.5); Mean Corpuscular Volume 99 fL (80-100); Mean Platelet Volume 9.3 fL (9.1-12.4); NEUTROPHILS ABSOLUTE AUTO 2.73 K/mm3 (1.96-9.15); NEUTROPHILS PERCENT AUTO 59 % (41-73); Platelet Count 113 K/mm3 (150-400); RDW Coefficient Variation 21.3 % (11.7-14.2); RDW Standard Deviation 77.6 fL (35.1-46.3); Red Blood Cell Count 3.05 M/mm3 (3.80-5.20); White Blood Cell Count 4.66 K/mm3 (4.00-11.30)
[2022-07-19 13:26] LABS: Albumin, Blood 2.1 g/dL (3.4-5.0); Albumin/Globulin Ratio 0.4 (0.8-1.8); Bilirubin, Total 1.2 mg/dL (0.1-1.0); Bun/Creatinine Ratio 22.4 (12.0-20.0); Calcium, Blood 8.2 mg/dL (8.5-10.1); Creatinine, Blood 1.07 mg/dL (0.40-1.00); Globulin, Blood 4.7 g/dL (2.2-4.0); Potassium, Blood 4.1 mmol/L (3.5-5.5); Total Protein, Blood 6.8 g/dL (6.4-8.2)
[2022-07-19 13:39] LABS: International Normalized Ratio 1.18; Prothrombin Time Results 12.3 Sec (9.7-11.5)
== END 2022-07-19 18:15 | disposition home or self-care (01) ==
LOC: ER 12:41
PROVIDERS: Emergency Medicine
DX: K70.31 Alcoholic cirrhosis of liver with ascites (principal); K21.9 Gastro-esophageal reflux disease without esophagitis; J45.909 Unspecified asthma, uncomplicated; I10 Essential (primary) hypertension; Z79.899 Other long term (current) drug therapy
CPT/HCPCS: 71045; 80053; 83880; 84484; 85025; 85610; 85730

== ENCOUNTER 2022-07-29 09:56 | Emergency (ER) | payer MEDICARE, OTHER ==
[~2022-07-29] VITALS: Ht 157.5 cm; Wt 62.1 kg
[2022-07-29 10:56] LABS: BASOPHILS ABSOLUTE AUTO 0.09 K/mm3 (0.00-0.23); BASOPHILS PERCENT AUTO 2 % (0-2); EOSINOPHILS ABSOLUTE AUTO 0.41 K/mm3 (0.00-0.68); EOSINOPHILS PERCENT AUTO 8 % (0-6); Hemoglobin 11.3 g/dL (11.5-16.0); IMMATURE GRAN ABSOLUTE AUTO 0.01 K/mm3 (0.00-0.10); IMMATURE GRAN PERCENT AUTO 0 % (0-1); LYMPHOCYTES ABSOLUTE AUTO 1.12 K/mm3 (0.84-5.20); LYMPHOCYTES PERCENT AUTO 21 % (21-46); MONOCYTES ABSOLUTE AUTO 0.41 K/mm3 (0.16-1.47); MONOCYTES PERCENT AUTO 8 % (4-13); Mean Corpuscular HGB 31.4 pg (26.0-34.0); Mean Corpuscular HGB Conc 33.2 g/dL (31.5-36.5); Mean Corpuscular Volume 94 fL (80-100); Mean Platelet Volume 9.2 fL (9.1-12.4); NEUTROPHILS ABSOLUTE AUTO 3.24 K/mm3 (1.96-9.15); NEUTROPHILS PERCENT AUTO 61 % (41-73); Platelet Count 115 K/mm3 (150-400); RDW Coefficient Variation 19.5 % (11.7-14.2); RDW Standard Deviation 68.6 fL (35.1-46.3); White Blood Cell Count 5.28 K/mm3 (4.00-11.30)
[2022-07-29 11:13] LABS: Albumin, Blood 2.5 g/dL (3.4-5.0); Albumin/Globulin Ratio 0.5 (0.8-1.8); Bun/Creatinine Ratio 21.2 (12.0-20.0); Creatinine, Blood 1.04 mg/dL (0.40-1.00); Globulin, Blood 5.3 g/dL (2.2-4.0); Potassium, Blood 3.6 mmol/L (3.5-5.5); Total Protein, Blood 7.8 g/dL (6.4-8.2)
[2022-07-29 12:04] LABS: International Normalized Ratio 1.21; Prothrombin Time Results 12.5 Sec (9.7-11.5)
[2022-07-29] MEDS ORDERED: SUCR1 PO (14:17)
== END 2022-07-29 16:35 | disposition home or self-care (01) ==
LOC: ER 09:56
PROVIDERS: Physician Assistant
DX: R18.8 Other ascites (principal); J90 Pleural effusion, not elsewhere classified; Z79.899 Other long term (current) drug therapy
CPT/HCPCS: 36415; 49083; 71045; 80053; 85025; 85610; 85730

== ENCOUNTER 2022-08-03 08:48 | Inpatient (IN) | payer MEDICARE, OTHER ==
[~2022-08-03] VITALS: Ht 154.9 cm; Wt 57.3 kg
[2022-08-03 09:35] LABS: BASOPHILS ABSOLUTE AUTO 0.09 K/mm3 (0.00-0.23); BASOPHILS PERCENT AUTO 1 % (0-2); EOSINOPHILS ABSOLUTE AUTO 0.34 K/mm3 (0.00-0.68); EOSINOPHILS PERCENT AUTO 5 % (0-6); Hematocrit 31.4 % (33.0-51.0); Hemoglobin 10.7 g/dL (11.5-16.0); IMMATURE GRAN ABSOLUTE AUTO 0.05 K/mm3 (0.00-0.10); IMMATURE GRAN PERCENT AUTO 1 % (0-1); LYMPHOCYTES PERCENT AUTO 28 % (21-46); MONOCYTES ABSOLUTE AUTO 0.55 K/mm3 (0.16-1.47); MONOCYTES PERCENT AUTO 8 % (4-13); Mean Corpuscular HGB 31.6 pg (26.0-34.0); Mean Corpuscular HGB Conc 34.1 g/dL (31.5-36.5); Mean Corpuscular Volume 93 fL (80-100); NEUTROPHILS ABSOLUTE AUTO 4.12 K/mm3 (1.96-9.15); NEUTROPHILS PERCENT AUTO 58 % (41-73); RDW Coefficient Variation 18.8 % (11.7-14.2); RDW Standard Deviation 63.3 fL (35.1-46.3); Red Blood Cell Count 3.39 M/mm3 (3.80-5.20); White Blood Cell Count 7.15 K/mm3 (4.00-11.30)
[2022-08-03 09:42] LABS: Alanine Aminotransfer (ALT/SGP 31 U/L (12-78); Albumin, Blood 2.1 g/dL (3.4-5.0); Albumin/Globulin Ratio 0.4 (0.8-1.8); Alk Phos 206 U/L (50-136); Anion Gap 3 mmol/L (6-16); Aspartate Aminotrans (AST/SGOT 67 U/L (12-37); Bilirubin, Total 1.2 mg/dL (0.1-1.0); Blood Urea Nitrogen 33 mg/dL (8-24); Bun/Creatinine Ratio 29.5 (12.0-20.0); CO2, Blood 23 mmol/L (21-32); Calcium, Blood 8.5 mg/dL (8.5-10.1); Chloride, Blood 113 mmol/L (98-108); Creatinine, Blood 1.12 mg/dL (0.40-1.00); Ethanol (Alcohol), Blood, Med <3 mg/dL; Globulin, Blood 4.9 g/dL (2.2-4.0); Glomerular Filtration Rate 54 (60-); Glucose, Blood 119 mg/dL (70-99); Potassium, Blood 4.2 mmol/L (3.5-5.5); Sodium, Blood 139 mmol/L (136-145)
[2022-08-03 10:09] LABS: Protein, Body Fluid 0.3 g/dL
[2022-08-03 10:09] LABS: Base Excess Venous -2.9 mmol/L; Bicarbonate Venous 21.7 mmol/L (24.0-30.0); PCO2 Venous 42.2 mmHg (38-42); pH Blood Venous 7.34 (7.34-7.37)
[2022-08-03 10:10] LABS: Automated BF WBC Count 0.036 K/mm3 (0-999)
[2022-08-03 10:26] LABS: International Normalized Ratio 1.17; Prothrombin Time Results 12.2 Sec (9.7-11.5)
[2022-08-03 10:49] LABS: RBC Count, Body Fluid 52 /mm3 (0-0)
[2022-08-03 10:50] LABS: Body Fluid WBC Count 36 /mm3 (0-999)
[2022-08-03 10:51] LABS: Appearance, Body Fluid Hazy (Clear); Color, Body Fluid No color (None-Yellow)
[2022-08-03 11:04] LABS: Total Cell Count, Body Fluid 100
[2022-08-03 12:17] LABS: Mean Platelet Volume 9.5 fL (9.1-12.4); Platelet Count 105 K/mm3 (150-400)
[2022-08-04 05:02] LABS: BASOPHILS ABSOLUTE AUTO 0.07 K/mm3 (0.00-0.23); BASOPHILS PERCENT AUTO 1 % (0-2); EOSINOPHILS ABSOLUTE AUTO 0.27 K/mm3 (0.00-0.68); EOSINOPHILS PERCENT AUTO 5 % (0-6); Hematocrit 31.3 % (33.0-51.0); Hemoglobin 10.2 g/dL (11.5-16.0); IMMATURE GRAN ABSOLUTE AUTO 0.02 K/mm3 (0.00-0.10); IMMATURE GRAN PERCENT AUTO 0 % (0-1); LYMPHOCYTES ABSOLUTE AUTO 0.93 K/mm3 (0.84-5.20); LYMPHOCYTES PERCENT AUTO 15 % (21-46); MONOCYTES ABSOLUTE AUTO 0.41 K/mm3 (0.16-1.47); MONOCYTES PERCENT AUTO 7 % (4-13); Mean Corpuscular HGB 31.2 pg (26.0-34.0); Mean Corpuscular HGB Conc 32.6 g/dL (31.5-36.5); Mean Corpuscular Volume 96 fL (80-100); Mean Platelet Volume 9.3 fL (9.1-12.4); NEUTROPHILS ABSOLUTE AUTO 4.34 K/mm3 (1.96-9.15); NEUTROPHILS PERCENT AUTO 72 % (41-73); Platelet Count 103 K/mm3 (150-400); RDW Coefficient Variation 19.1 % (11.7-14.2); RDW Standard Deviation 66.4 fL (35.1-46.3); Red Blood Cell Count 3.27 M/mm3 (3.80-5.20); White Blood Cell Count 6.04 K/mm3 (4.00-11.30)
[2022-08-04 05:39] LABS: Albumin, Blood 2.2 g/dL (3.4-5.0); Albumin/Globulin Ratio 0.4 (0.8-1.8); Bilirubin, Total 1.5 mg/dL (0.1-1.0); Bun/Creatinine Ratio 31.2 (12.0-20.0); Calcium, Blood 8.9 mg/dL (8.5-10.1); Creatinine, Blood 1.12 mg/dL (0.40-1.00); Globulin, Blood 4.9 g/dL (2.2-4.0); Magnesium, Blood 1.7 mg/dL (1.6-2.4); Phosphorus, Blood 3.3 mg/dL (2.5-4.9); Potassium, Blood 3.9 mmol/L (3.5-5.5); Total Protein, Blood 7.1 g/dL (6.4-8.2)
[2022-08-05 05:24] LABS: BASOPHILS ABSOLUTE AUTO 0.07 K/mm3 (0.00-0.23); BASOPHILS PERCENT AUTO 1 % (0-2); EOSINOPHILS ABSOLUTE AUTO 0.34 K/mm3 (0.00-0.68); EOSINOPHILS PERCENT AUTO 5 % (0-6); Hematocrit 27.8 % (33.0-51.0); Hemoglobin 9.1 g/dL (11.5-16.0); IMMATURE GRAN ABSOLUTE AUTO 0.01 K/mm3 (0.00-0.10); IMMATURE GRAN PERCENT AUTO 0 % (0-1); LYMPHOCYTES PERCENT AUTO 21 % (21-46); MONOCYTES ABSOLUTE AUTO 0.65 K/mm3 (0.16-1.47); MONOCYTES PERCENT AUTO 10 % (4-13); Mean Corpuscular HGB 31.6 pg (26.0-34.0); Mean Corpuscular HGB Conc 32.7 g/dL (31.5-36.5); Mean Corpuscular Volume 97 fL (80-100); Mean Platelet Volume 8.9 fL (9.1-12.4); NEUTROPHILS ABSOLUTE AUTO 3.91 K/mm3 (1.96-9.15); NEUTROPHILS PERCENT AUTO 62 % (41-73); Platelet Count 82 K/mm3 (150-400); RDW Coefficient Variation 19.3 % (11.7-14.2); RDW Standard Deviation 68.3 fL (35.1-46.3); Red Blood Cell Count 2.88 M/mm3 (3.80-5.20); White Blood Cell Count 6.28 K/mm3 (4.00-11.30)
[2022-08-05 05:43] LABS: Albumin, Blood 1.8 g/dL (3.4-5.0); Albumin/Globulin Ratio 0.4 (0.8-1.8); Bilirubin, Total 0.9 mg/dL (0.1-1.0); Bun/Creatinine Ratio 29.1 (12.0-20.0); Calcium, Blood 8.4 mg/dL (8.5-10.1); Creatinine, Blood 1.17 mg/dL (0.40-1.00); Globulin, Blood 4.3 g/dL (2.2-4.0); Magnesium, Blood 1.6 mg/dL (1.6-2.4); Potassium, Blood 3.4 mmol/L (3.5-5.5); Total Protein, Blood 6.1 g/dL (6.4-8.2)
[2022-08-06 05:58] LABS: BASOPHILS ABSOLUTE AUTO 0.05 K/mm3 (0.00-0.23); BASOPHILS PERCENT AUTO 1 % (0-2); EOSINOPHILS ABSOLUTE AUTO 0.44 K/mm3 (0.00-0.68); EOSINOPHILS PERCENT AUTO 9 % (0-6); Hematocrit 27.8 % (33.0-51.0); Hemoglobin 9.2 g/dL (11.5-16.0); IMMATURE GRAN ABSOLUTE AUTO 0.02 K/mm3 (0.00-0.10); IMMATURE GRAN PERCENT AUTO 0 % (0-1); LYMPHOCYTES ABSOLUTE AUTO 0.97 K/mm3 (0.84-5.20); LYMPHOCYTES PERCENT AUTO 19 % (21-46); MONOCYTES ABSOLUTE AUTO 0.61 K/mm3 (0.16-1.47); MONOCYTES PERCENT AUTO 12 % (4-13); Mean Corpuscular HGB 32.1 pg (26.0-34.0); Mean Corpuscular HGB Conc 33.1 g/dL (31.5-36.5); Mean Corpuscular Volume 97 fL (80-100); Mean Platelet Volume 9.8 fL (9.1-12.4); NEUTROPHILS PERCENT AUTO 58 % (41-73); Platelet Count 82 K/mm3 (150-400); RDW Standard Deviation 67.1 fL (35.1-46.3); Red Blood Cell Count 2.87 M/mm3 (3.80-5.20); White Blood Cell Count 4.99 K/mm3 (4.00-11.30)
[2022-08-06 06:23] LABS: Albumin, Blood 1.8 g/dL (3.4-5.0); Albumin/Globulin Ratio 0.4 (0.8-1.8); Bilirubin, Total 0.7 mg/dL (0.1-1.0); Bun/Creatinine Ratio 27.7 (12.0-20.0); Creatinine, Blood 1.12 mg/dL (0.40-1.00); Globulin, Blood 4.4 g/dL (2.2-4.0); Potassium, Blood 3.3 mmol/L (3.5-5.5); Total Protein, Blood 6.2 g/dL (6.4-8.2)
[2022-08-06] MEDS ORDERED: LACT10SY PO (12:14)
== END 2022-08-06 13:05 | disposition home or self-care (01) | DRG 441 ==
LOC: ER 08:48 → PCU 12:29
PROVIDERS: Family Medicine; Student in an Organized Health Care Education/Training Program; ADMIT Family Medicine
PROC: 0W9B3ZZ Drainage of Left Pleural Cavity, Percutaneous Approach (ICD-10-PCS; principal; 2022-08-04)
PROC: 0W9G3ZZ Drainage of Peritoneal Cavity, Percutaneous Approach (ICD-10-PCS; 2022-08-06)
DX: K76.82 Hepatic encephalopathy (principal); K65.2 Spontaneous bacterial peritonitis; I85.10 Secondary esophageal varices without bleeding; J90 Pleural effusion, not elsewhere classified; K76.6 Portal hypertension; D69.6 Thrombocytopenia, unspecified; F41.9 Anxiety disorder, unspecified; E87.70 Fluid overload, unspecified; Z51.5 Encounter for palliative care; Z66 Do not resuscitate; K70.31 Alcoholic cirrhosis of liver with ascites; K21.9 Gastro-esophageal reflux disease without esophagitis; J45.909 Unspecified asthma, uncomplicated; I35.0 Nonrheumatic aortic (valve) stenosis; E78.5 Hyperlipidemia, unspecified; N18.30 Chronic kidney disease, stage 3 unspecified; D63.1 Anemia in chronic kidney disease; I12.9 Hypertensive chronic kidney disease with stage 1 through stage 4 chronic kidney disease, or unspecified chronic kidney disease; Z98.890 Other specified postprocedural states; Z79.899 Other long term (current) drug therapy; Z79.01 Long term (current) use of anticoagulants
CPT/HCPCS: 32555; 36415; 49083; 71045; 80053; 82140; 82803; 83735; 84100; 84157; 85025; 85049; 85610; 87070; 87075; 87205; 89051; 92610; 93005; 93010; 94644; 94664; 97129; 97165; 97535; 99285-25; A9270; C9113; G0480; J0696; J1644; J1940

== ENCOUNTER 2022-08-21 11:37 | Emergency (ER) | payer MEDICARE, OTHER ==
[~2022-08-21] VITALS: Ht 157.5 cm; Wt 62.1 kg
[2022-08-21 12:40] LABS: BASOPHILS ABSOLUTE AUTO 0.03 K/mm3 (0.00-0.23); BASOPHILS PERCENT AUTO 1 % (0-2); EOSINOPHILS ABSOLUTE AUTO 0.22 K/mm3 (0.00-0.68); EOSINOPHILS PERCENT AUTO 5 % (0-6); Hematocrit 29.7 % (33.0-51.0); Hemoglobin 9.7 g/dL (11.5-16.0); IMMATURE GRAN ABSOLUTE AUTO 0.01 K/mm3 (0.00-0.10); IMMATURE GRAN PERCENT AUTO 0 % (0-1); LYMPHOCYTES ABSOLUTE AUTO 0.75 K/mm3 (0.84-5.20); LYMPHOCYTES PERCENT AUTO 18 % (21-46); MONOCYTES ABSOLUTE AUTO 0.32 K/mm3 (0.16-1.47); MONOCYTES PERCENT AUTO 8 % (4-13); Mean Corpuscular HGB 32.9 pg (26.0-34.0); Mean Corpuscular HGB Conc 32.7 g/dL (31.5-36.5); Mean Corpuscular Volume 101 fL (80-100); NEUTROPHILS ABSOLUTE AUTO 2.88 K/mm3 (1.96-9.15); NEUTROPHILS PERCENT AUTO 69 % (41-73); Platelet Count 108 K/mm3 (150-400); RDW Coefficient Variation 18.7 % (11.7-14.2); RDW Standard Deviation 69.4 fL (35.1-46.3); Red Blood Cell Count 2.95 M/mm3 (3.80-5.20); White Blood Cell Count 4.21 K/mm3 (4.00-11.30)
[2022-08-21 13:14] LABS: Albumin, Blood 2.3 g/dL (3.4-5.0); Albumin/Globulin Ratio 0.5 (0.8-1.8); Bilirubin, Total 1.1 mg/dL (0.1-1.0); Bun/Creatinine Ratio 22.7 (12.0-20.0); Calcium, Blood 8.6 mg/dL (8.5-10.1); Creatinine, Blood 1.1 mg/dL (0.40-1.00); Globulin, Blood 4.8 g/dL (2.2-4.0); Potassium, Blood 4.5 mmol/L (3.5-5.5); Total Protein, Blood 7.1 g/dL (6.4-8.2)
[2022-08-21 13:25] LABS: International Normalized Ratio 1.08; Prothrombin Time Results 11.3 Sec (9.7-11.5)
[2022-08-21 16:00] VITALS: BP 138/66
== END 2022-08-21 16:19 | disposition home or self-care (01) ==
LOC: ER 11:37
PROVIDERS: Student in an Organized Health Care Education/Training Program
DX: R18.8 Other ascites (principal); Z79.899 Other long term (current) drug therapy; K21.9 Gastro-esophageal reflux disease without esophagitis; J45.909 Unspecified asthma, uncomplicated; I10 Essential (primary) hypertension; E78.5 Hyperlipidemia, unspecified
CPT/HCPCS: 36415; 49083; 71046; 80053; 85025; 85610; 85730; 99285-25

== ENCOUNTER 2022-09-28 06:36 | Inpatient (IN) | payer MEDICARE, OTHER ==
[2022-09-28] VITALS (46 sets, daily range): BP systolic 80–191; BP diastolic 47–163
[~2022-09-28] VITALS: Ht 162.6 cm; Wt 65.1 kg
[2022-09-28 06:53] LABS: BASOPHILS ABSOLUTE AUTO 0.03 K/mm3 (0.00-0.23); BASOPHILS PERCENT AUTO 0 % (0-2); EOSINOPHILS ABSOLUTE AUTO 0.02 K/mm3 (0.00-0.68); EOSINOPHILS PERCENT AUTO 0 % (0-6); Hematocrit 21.8 % (33.0-51.0); Hemoglobin 7.2 g/dL (11.5-16.0); IMMATURE GRAN ABSOLUTE AUTO 0.03 K/mm3 (0.00-0.10); IMMATURE GRAN PERCENT AUTO 0 % (0-1); LYMPHOCYTES ABSOLUTE AUTO 0.96 K/mm3 (0.84-5.20); LYMPHOCYTES PERCENT AUTO 10 % (21-46); MONOCYTES ABSOLUTE AUTO 0.49 K/mm3 (0.16-1.47); MONOCYTES PERCENT AUTO 5 % (4-13); Mean Corpuscular HGB 32.4 pg (26.0-34.0); Mean Corpuscular Volume 98 fL (80-100); Mean Platelet Volume 9.3 fL (9.1-12.4); NEUTROPHILS PERCENT AUTO 84 % (41-73); Platelet Count 235 K/mm3 (150-400); RDW Coefficient Variation 15.8 % (11.7-14.2); RDW Standard Deviation 56.3 fL (35.1-46.3); Red Blood Cell Count 2.22 M/mm3 (3.80-5.20); White Blood Cell Count 9.23 K/mm3 (4.00-11.30)
[2022-09-28 06:55] LABS: Calcium, Ionized (POC) 1.05 mmol/L (1.10-1.46); Chloride (POC) 102 mmol/L (98-108); Creatinine (POC) 1.6 mg/dL (0.6-1.0); Glucose (ISTAT POC) 153 mg/dL (70-99); Hemoglobin (POC) 8.2 g/dL (12.0-16.0); Potassium (POC) 3.8 mmol/L (3.5-5.5); Sodium (POC) 135 mmol/L (135-148); Total CO2 (POC) 21 mmol/L (21-32)
[2022-09-28 06:59] LABS: Base Excess Venous -3.3 mmol/L; PCO2 Venous 32.3 mmHg (38-42); pH Blood Venous 7.42 (7.34-7.37)
[2022-09-28 07:13] LABS: International Normalized Ratio 1.23; Prothrombin Time Results 12.8 Sec (9.7-11.5)
[2022-09-28 07:21] LABS: Albumin, Blood 2.2 g/dL (3.4-5.0); Albumin/Globulin Ratio 0.5 (0.8-1.8); Bilirubin, Total 1.6 mg/dL (0.1-1.0); Bun/Creatinine Ratio 21.3 (12.0-20.0); Calcium, Blood 8.2 mg/dL (8.5-10.1); Creatinine, Blood 1.5 mg/dL (0.40-1.00); Globulin, Blood 4.5 g/dL (2.2-4.0); Potassium, Blood 3.9 mmol/L (3.5-5.5); Total Protein, Blood 6.7 g/dL (6.4-8.2)
[2022-09-28 08:15] LABS: Base Excess Venous -7.9 mmol/L; Bicarbonate Venous 18.4 mmol/L (24.0-30.0); PCO2 Venous 39.1 mmHg (38-42); pH Blood Venous 7.29 (7.34-7.37)
[2022-09-28 08:29] LABS: Source, Urine Foley catheter
[2022-09-28 08:46] LABS: Bilirubin, Urine Neg (Neg); Blood, Urine 1+ (Neg); Color, Urine Yellow (P-Yellow); Glucose Qualitative, Urine Neg (Neg); Ketones, Urine Neg (Neg); Leukocyte Esterase, Urine Neg (Neg); Nitrite, Urine Neg (Neg); Protein, Urine 2+ (Neg); Specific Gravity, Urine 1.015 (1.003-1.022); Urobilinogen, Urine 1+ (Normal)
[2022-09-28 08:56] LABS: Appearance, Urine Hazy (Clear)
[2022-09-28 09:04] LABS: Red Blood Cells, Urine 0-2 /hpf (0-2); White Blood Cells, Urine 0-2 /hpf (0-5)
[2022-09-28 09:05] LABS: Bacteria Mod /hpf; Mucus Light (0-Heavy); Squamous Epithelial Cells Few /hpf (Few)
[2022-09-28 09:06] LABS: Renal Epithelial Few /hpf (0-Rare); Transitional Epithelial Cells Rare /hpf (0-Rare)
[2022-09-28 10:39] LABS: Hematocrit 24.9 % (33.0-51.0); Hemoglobin 7.5 g/dL (11.5-16.0)
--- NOTE | 2022-09-28 11:15 | NUR ---
PT ARRIVES TO ICU 7 INTUBATED AND ON PROPOFOL. PROPOFOL STOPPED FOR NEURO ASSESSMENT. PROTONIX AND SANDOSTATIN GTT RUNNING. OGT HAS SMALL AMT OF BLOOD IN TUBING AND SMALL AMT OF BLOOD OOZING FROM MOUTH. SMALL AMT OF RECATAL BLOOD WELL. NO FAMILY ACCOMPANIES BUT DR. MILLER HAS SPOKEN WITH THEM.
--- NOTE | 2022-09-28 15:48 | NUR ---
09/28/22 1548 Teo Curry History, Chart, Medications and Allergies reviewed before start of procedure.MONITOR INTACT WITH CONTINUOUS PULSE OXIMETRY, CONTINUOUS END TITAL CO2, AND INTERMITTENT BLOOD PRESSURE.3-LEAD EKG REVIEWED WITH PHYSICIAN PRIOR TO START OF PROCEDURE. PATIENT INTUBATED WITH PROPOFOL SEDATION.
[2022-09-28 16:07] LABS: Hematocrit 23.7 % (33.0-51.0); Hemoglobin 7.4 g/dL (11.5-16.0)
--- NOTE | 2022-09-28 18:13 | NUR ---
SUMMARY PT ADMITTED TO ICU 7 TODAY. INTUBATED, NO SEDATION MOST OF THE DAY EXCEPT DURING EGD. DR. SAMANIEGO DID EGD, NO ACTIVE BLEEDING FOUND. OGT REPLACED BY DR. SAMANIEGO AND VERIFIED WITH ENDOSCOPE. OGT TO LIS NOW HAS PINK OUTPUT RATHER THAN RED. AFTER EGD, DR. MILLER DID BRONCHOSCOPY AND DIDN'T FIND ANY ACTIVE BLEEDING IN AIRWAY. THERE WAS CONCERN SINCE PT HAD CARLOS BLOOD SUCTIONED FROM ETT BUT THAT HAS CLEARED UP NOW WELL AND IS BACK TO [facility] [place]. GETTING A BOLUS NOW PT ONLY HAD 50ML OF OUTPUT AND HAS BEEN TACHYCARDIC. NO PURPOSEFUL MOVEMENT. PICC LINE PLACED PT IS VERY DIFFICULT IV START AND 2 IV'S HAVE ALREADY BEEN REMOVED SINCE ARRIVAL TO ICU. BP HAS BEEN LABILE AND THERE WAS CONCERN VASOPRESSORS MAY BE NEEDED WELL. NO FAMILY AT BEDSIDE, BOTH DR. MILLER AND DR. SAMANIEGO SPOKE WITH THEM VIA PHONE.
--- NOTE | 2022-09-28 19:10 | NUR ---
ASSUMED CARE PATIENT INTUBATED. NO FAMILY AT BEDSIDE. LR INFUSING. HOLLINS TO GRAVITY
[2022-09-28 22:11] LABS: Hematocrit 19.9 % (33.0-51.0); Hemoglobin 6.1 g/dL (11.5-16.0)
--- NOTE | 2022-09-28 22:33 | NUR ---
NOTIFIED DR. MILLER OF LOW URINE OUTPUT AND HBG OF 6.1
[2022-09-29] VITALS (74 sets, daily range): BP systolic 83–147; BP diastolic 32–119
[2022-09-29 04:16] LABS: Mean Corpuscular HGB 31.3 pg (26.0-34.0); Mean Corpuscular HGB Conc 31.8 g/dL (31.5-36.5); Mean Corpuscular Volume 98 fL (80-100); Mean Platelet Volume 10.4 fL (9.1-12.4); NRBC Auto 1.2 /100 WBC (0.0-0.2); Platelet Count 100 K/mm3 (150-400); RDW Coefficient Variation 18.5 % (11.7-14.2); RDW Standard Deviation 65.8 fL (35.1-46.3); Red Blood Cell Count 2.24 M/mm3 (3.80-5.20); White Blood Cell Count 8.54 K/mm3 (4.00-11.30)
[2022-09-29 04:30] LABS: International Normalized Ratio 1.89; Prothrombin Time Results 19.1 Sec (9.7-11.5)
[2022-09-29 04:36] LABS: Magnesium, Blood 1.7 mg/dL (1.6-2.4)
[2022-09-29 04:39] LABS: Albumin, Blood 2.9 g/dL (3.4-5.0); Albumin/Globulin Ratio 1.2 (0.8-1.8); Bilirubin, Total 2.9 mg/dL (0.1-1.0); Bun/Creatinine Ratio 18.2 (12.0-20.0); Calcium, Blood 8.6 mg/dL (8.5-10.1); Creatinine, Blood 2.03 mg/dL (0.40-1.00); Globulin, Blood 2.4 g/dL (2.2-4.0); Potassium, Blood 3.5 mmol/L (3.5-5.5); Total Protein, Blood 5.3 g/dL (6.4-8.2)
[2022-09-29 04:50] LABS: BAND PERCENT MAN 46 % (0-8); BASOPHILS PERCENT MAN 0 % (0-2); EOSINOPHILS ABSOLUTE MAN 0.08 K/mm3 (0.00-0.68); EOSINOPHILS PERCENT MAN 1 % (0-6); LYMPHOCYTES ABSOLUTE MAN 0.51 K/mm3 (0.84-5.20); LYMPHOCYTES PERCENT MAN 6 % (21-46); MONOCYTES ABSOLUTE MAN 0.17 K/mm3 (0.16-1.47); MONOCYTES PERCENT MAN 2 % (4-13); MYELOCYTE ABSOLUTE MAN 0.08 K/mm3 (0.00-0.00); MYELOCYTE PERCENT MAN 1 % (0-0); NEUTROPHILS ABSOLUTE MAN 7.68 K/mm3 (1.96-9.15); SEG NEUTROPHILS PERCENT MAN 44 % (41-73); TOTAL CELLS COUNTED 100
--- NOTE | 2022-09-29 05:13 | NUR ---
ANGELINE MILLER PATIENT GLUCOSE 40 ON AM LABS. 1AMP D50 GIVEN. ORDERS GIVEN
--- NOTE | 2022-09-29 06:44 | NUR ---
SHIFT SUMMARY PATIENT CONTINUES TO BE INTUBATED. NO SEDATION THIS SHIFT. PATIENT WITHDRAWS TO PAIN. NO GAG MINIMAL COUGH. X1 UNIT OF PRBC'S TRANFUSED. 1 AMP D50 GIVEN FOR HYPOGLYCEMIA. LEVOPHED STARTED FOR HYPOTENSION. PATIENT OLIGURIC, HOLLINS IN PLACE TO GRAVITY
--- NOTE | 2022-09-29 07:02 | NUR ---
SPUTUM CULTURE ORDER FAILED PK INTERFACE, ENTERED AT THIS TIME.
--- NOTE | 2022-09-29 08:39 | NUR ---
CANDY PT'S SIGNIFICANT OTHER HAS THE PATIENT'S RINGS TODAY AND TOLD ME THAT HE TOOK HER [place] HOME YESTERDAY.
[2022-09-29 10:46] LABS: Hematocrit 20.8 % (33.0-51.0); Hemoglobin 6.8 g/dL (11.5-16.0)
--- NOTE | 2022-09-29 11:57 | NUR ---
ASSUMED CARE CARE WAS ASSUMED AT 0700. PT INTUBATED, AC/PC PEEP 7.0, PRESSURE 8.0, Fi02 40% AT 0700. ON CONTINUOUS CARDIAC MONITORING. SINUS TACH NOTED AT 0700. BP STABLE, LEVOPHED PUT ON STANDBY AT 0730. COARSE CRACKLES HEARD T/O LUNG JOEL ON EXPIRATION. HOLLINS PATENT, DRAINING TO GRAVITY. PT UNRESPONSIVE, NO SEDATION INFUSING.
--- NOTE | 2022-09-29 12:01 | NUR ---
SHIFT UPDATE AT 0835 THE PATIENT'S SP02 BEGAN SUSTAINING BETWEEN 85-88%, Fi02 WAS INCREASED TO 50%, AND AGAIN TO 55% AT 0945. PT HAVING MINIMAL SECRETIONS WHEN SUCTIONED. AT 1000 THE PT'S CARDIAC MONITORED SHOWED THE PATIENT WAS IN AFIB W/ RVR WITH A RATE THAT WAS BETWEEN 140-180. DR. CHRISTIANSON AND DR. ZELAYA WERE CALLED BY JUANI ALFARO. DR. CHRISTIANSON ORDERED 5 MG DILTIAZEM IV PUSH, WHICH JUANI ALFARO GAVE. THE PT'S HEART RATE DROPPED DOWN SLIGHTLY TO THE 130S. DR. ZELAYA ORDERED A DIGOXIN INFUSION, WHICH JUANI ALFARO ADMINISTERED. SINCE BOTH MEDICATIONS GIVEN, CALENDER SUPERVISOR SHOWS SINUS TACH W/ PACS WITH A RATE UNDER 120.
--- NOTE | 2022-09-29 12:13 | NUR ---
AND HAVE BOTH COME TO SEE THE PATIENT SINCE THE INITIAL CHANGE IN HER RHYTHM. THE DIGOXIN HAVING BEEN THE ONE TO KEEP HER HR <120.
--- NOTE | 2022-09-29 12:40 | NUR ---
HALINA'S SIGNIFICANT OTHER, HELEN GUPTA WAS JUST IN. HE SAID THAT A NIECE AND A SISTER WERE COMING TOMORROW AND IF THERE WERE NO IMPROVEMENTS, THEY "WERE GOING TO PULL THE PLUG". WILLIAM AND I ENCOURAGED HIM TO TALK WITH HER AND HOLD HER HAND FOR A BIT, HE DECLINED, SAYING THAT SHE HAD NO RESPONSE TO HIM EARLIER, "SO IT WOULDN'T DO ANY GOOD". ALSO GAVE HIM INFORMATION ABOUT "WHEN YOUR LOVED ONE IS ON A VENTILATOR". HE TOOK THE INFORMATION AND SAID HE WOULD BE BACK TOMORROW.
[2022-09-29 16:44] LABS: Hematocrit 24.5 % (33.0-51.0); Hemoglobin 7.9 g/dL (11.5-16.0)
--- NOTE | 2022-09-29 17:18 | NUR ---
Pt remains on the ventilator and a full code, according to her wishes. Her sister is currently her decisionmaker. Sister states she will be here in 2 days. The pt is a
--- NOTE | 2022-09-29 17:58 | NUR ---
SHIFT ROXANNE MEADE REMAINS TO BE UNRESPONSIVE. NEUROLOGICALLY, SHE HAS SHOWN MINIMAL SIGNS THAT INDICATE A POSITIVE CHANGE. THE PT AT TIMES RESEMBLES A GAG REFLEX. THE PT HAS A POSITIVE BABINKSI REFLEX WITH ANY TOUCH OR PALPATION TO HER FEET. THE PT HAS NO MEANINGFUL RESPONSES TO PAIN SENSATION EVERYWHERE ELSE T/O HER BODY. SINCE THE PT'S EPISODE OF AFIB W/ RVR THIS MORNING THAT WAS TREATED SHE HAS REMAINED IN SINUS TACH W/ PACS WITH A HEART RATE STAYING BELOW 120. LEVOPHED WAS PUT ON STANDBY THIS MORNING AND HAS REMAINED OFF. THE PATIENT REMAINS INTUBATED, AT THIS TIME AC/PC PEEP OF 7.0, PRESSURE 8, Fi02 75%. THE PT'S Fi02 REQUIREMENTS HAVE CONSISTENTLY GONE UP ALL SHIFT. AT THE BEGINNING OF THE SHIFT SHE WAS AT 40%. IT WAS NOTED THAT THERE WAS A YELLOW/CHARLOTTE FLUID IN HER EXPIRATORY TUBING CONNECTED TO THE VENTILATOR. LUNG JOEL REMAIN COARSE T/O. PT'S URINE OUTPUT HAS BEEN SCANT, 125 OUT FOR THIS SHIFT. THE PATIENT WAS STARTED ON PROPOFOL THIS AFTERNOON PER VERBAL ORDERS D/T HER INCREASINGLY BECOMING MORE LABORED WITH RESPIRATIONS. THE PT RECIEVED 1 UNIT PRBCS TO CORRECT HER HGB OF 6.8, WHICH WAS 7.9 AT 1630. THE PT'S ABDOMEN IS STILL SEVERELY DISTENDED. AN IAP WAS PERFORMED TODAY, WITH A PRESSURE OF 28. CURRENTLY D5 NS RUNNING @ 50 ML/HR WHICH IS ABLE TO MAINTAIN HER BLOOD SUGAR ABOVE 90. PROPOFOL @ 30 MCG/MIN. WILL CONTINUE TO MONITOR UNTIL CARE IS TRANSITIONED TO NOC SHIFT.
--- NOTE | 2022-09-29 18:27 | NUR ---
HALINA'S CARE WAS PERFORMED BY THE STUDENT NURSE WILLIAM AND BY THIS RN. PT DOES NOT ILLICIT PURPOSEFUL MOVEMENT OR WITHDRAW TO PAINFUL STIMULI. SEE HER NOTES AND ASSESSMENT FOR FURTHER DETAILS.
[2022-09-29 22:16] LABS: Hematocrit 23.5 % (33.0-51.0); Hemoglobin 7.7 g/dL (11.5-16.0)
[2022-09-30] VITALS (46 sets, daily range): BP systolic 95–135; BP diastolic 38–63
[2022-09-30 03:54] LABS: Hematocrit 22.3 % (33.0-51.0); Hemoglobin 7.2 g/dL (11.5-16.0); Mean Corpuscular HGB Conc 32.3 g/dL (31.5-36.5); Mean Corpuscular Volume 96 fL (80-100); Mean Platelet Volume 10.2 fL (9.1-12.4); NRBC ABSOLUTE 0.12 K/mm3 (0.00-0.02); NRBC Auto 0.5 /100 WBC (0.0-0.2); Platelet Count 85 K/mm3 (150-400); RDW Coefficient Variation 19.3 % (11.7-14.2); RDW Standard Deviation 65.6 fL (35.1-46.3); Red Blood Cell Count 2.32 M/mm3 (3.80-5.20); White Blood Cell Count 22.19 K/mm3 (4.00-11.30)
[2022-09-30 04:13] LABS: International Normalized Ratio 2.53; Prothrombin Time Results 25.2 Sec (9.7-11.5)
[2022-09-30 04:44] LABS: Albumin, Blood 3.6 g/dL (3.4-5.0); Albumin/Globulin Ratio 1.8 (0.8-1.8); Bun/Creatinine Ratio 19.9 (12.0-20.0); Calcium, Blood 8.6 mg/dL (8.5-10.1); Creatinine, Blood 2.21 mg/dL (0.40-1.00); Potassium, Blood 4.2 mmol/L (3.5-5.5); Total Protein, Blood 5.6 g/dL (6.4-8.2)
[2022-09-30 05:42] LABS: BAND PERCENT MAN 21 % (0-8); BASOPHILS PERCENT MAN 0 % (0-2); EOSINOPHILS PERCENT MAN 0 % (0-6); LYMPHOCYTES ABSOLUTE MAN 0.22 K/mm3 (0.84-5.20); LYMPHOCYTES PERCENT MAN 1 % (21-46); METAMYELOCYTE ABSOLUTE MAN 0.88 K/mm3 (0.00-0.00); METAMYELOCYTE PERCENT MAN 4 % (0-0); MONOCYTES ABSOLUTE MAN 0.22 K/mm3 (0.16-1.47); MONOCYTES PERCENT MAN 1 % (4-13); NEUTROPHILS ABSOLUTE MAN 20.85 K/mm3 (1.96-9.15); SEG NEUTROPHILS PERCENT MAN 73 % (41-73); TOTAL CELLS COUNTED 100
--- NOTE | 2022-09-30 05:49 | NUR ---
SHIFT SUMMARY PATIETN REMAINS INTUBATED/SEDATED. NO COUGH, NO GAG, WITHDRAWS TO PAIN. LUNGS SOUND COURSE, WITH INCREASING FIO2 NEEDS. VENT AC/PC 12/8/90%/10. GENERALIZED EDEMA 3+ - 4+. ABD REMAINS DISTENDED, FIRM. HOLLINS IN PLACE, PATIENT OLIGURIC. OG TUBE IN PLACE. OUTPUT BROWN, THIS AM OUTPUT PINK/RED
--- NOTE | 2022-09-30 07:58 | NUR ---
ASSUMED CARE REPORT FROM PACO ALFARO AT 0700. PT INTUBATED AND SEDATED. VENT SETTINGS PC 12/8/10/90%. LUNGS COARSE THROUGHOUT. SCANT PINK/WHITE SECRETIONS FROM ETT. NO COUGH/GAG/SWALLOW/CORNEAL REFLEX. WITHDRAWS BLE TO PAIN, SPONT MOVEMENT TO BLE, NO MOVEMENT NOTED TO UPPER EXT. BREATHING OVER VENT. PUPILS 4 MM, SLUGGISH. PROPOFOL GTT FOR VENT COMPLIANCE. SR, RATE 90'S. BP STABLE. SKIN JAUNDICE. 3+ EDEMA BLE, 1+ BUE. PETECHIA OVER BODY. ABD FIRM, DISTENDED, HYPOACTIVE BT. TYMPANIC. HOLLINS PATENT, SCANT TEA COLORED URINE TO GRAVITY. PICC TO LUE, DRESSING C/D/I. WILL CONTINUE TO MONITOR.
--- NOTE | 2022-09-30 17:56 | NUR ---
SHIFT SUMMARY PT REMAINS INTUBATED AND SEDATED, VENT SETTINGS UNCHANGED, 12/8/10/90%. LUNGS COARSE. MINIMAL SECRETIONS. OCCASIONAL AIR LEAK RESOLVED c REPOSITIONING. PROPOFOL GTT AT 15 MG/KG/MIN. PT HAS WEAK COUGH/SWALLOW, NO GAG/CORNEAL REFLEX. WITHDRAWS BLE TO PAIN. NO PURPOSEFUL MOVEMENT TO BUE, OCCASIONALLY SHRUGS SHOULDERS. PUPILS 4MM, SLUGGISH. SR, RATE 90'S. BP STABLE. OGT TO LIS, SCANT RED/BROWN EMESIS OUT. ABD FIRM, DISTENDED. HYPOACTIVE BT. TEMP PROBE HOLLINS PATENT, DRAINED 15ML TEA COLOR URINE OUT. PLAN FOR DIURESIS NOC SHIFT. EDEMA CONTINUES. SISTER CHANGED CODE STATUS TO DNR THIS SHIFT, WILL BE HERE TOMORROW AM. SO REPORTS PLAN IS TO WITHDRAW CARE IF NO IMPROVEMENTS. WILL CONTINUE TO MONITOR UNTIL REPORT TO ONCOMING NURSE.
--- NOTE | 2022-09-30 19:46 | NUR ---
ASSUMED CARE AT 1900 PATIENT IS INTUBATED AND SEDATED ON PROPOFOL. SEDATION TITRATED OFF AT APPROX 1930. PATIENT HAS GAG AND COUGH, MOVES BLE SPONTANEOUSLY. SHOULDER MOVEMENT WHEN STIMULATED. PUPILS EQUAL AND SLUGGISH. 02 SATS 96% ON VENT, RR 20s, SCANT AMOUNT OF THIN WHITE SUCTIONED FROM ETT. LS COARSE. OG TO LIS, BROWN/GREEN OUTPUT. HR SR-ST 90s-105, BP STABLE. EDEMA T/O. ABD DISTENDED AND FIRM. TEMP HOLLINS PATENT AND DRAINING TO GRAVITY, MINIMAL TEA COLORED OUTPUT. PATIENT REPOSTIONED.
--- NOTE | 2022-09-30 21:15 | NUR ---
RESP RATE INCREASED, PATIENT COUGHING AND 02 SATS DOWN TO 88%. RESTARTED ON PROPOFOL.
[2022-10-01] VITALS (32 sets, daily range): BP systolic 88–118; BP diastolic 39–62
[2022-10-01 04:22] LABS: Hematocrit 24.3 % (33.0-51.0); Hemoglobin 7.5 g/dL (11.5-16.0); Mean Corpuscular HGB 30.7 pg (26.0-34.0); Mean Corpuscular HGB Conc 30.9 g/dL (31.5-36.5); Mean Corpuscular Volume 100 fL (80-100); Mean Platelet Volume 10.8 fL (9.1-12.4); NRBC ABSOLUTE 0.13 K/mm3 (0.00-0.02); NRBC Auto 0.4 /100 WBC (0.0-0.2); Platelet Count 92 K/mm3 (150-400); RDW Coefficient Variation 19.4 % (11.7-14.2); RDW Standard Deviation 71.7 fL (35.1-46.3); Red Blood Cell Count 2.44 M/mm3 (3.80-5.20); White Blood Cell Count 29.45 K/mm3 (4.00-11.30)
[2022-10-01 04:47] LABS: Albumin, Blood 3.6 g/dL (3.4-5.0); Albumin/Globulin Ratio 1.5 (0.8-1.8); Bilirubin, Total 4.1 mg/dL (0.1-1.0); Bun/Creatinine Ratio 21.3 (12.0-20.0); Calcium, Blood 8.4 mg/dL (8.5-10.1); Creatinine, Blood 2.68 mg/dL (0.40-1.00); Globulin, Blood 2.4 g/dL (2.2-4.0); Potassium, Blood 4.4 mmol/L (3.5-5.5)
[2022-10-01 04:49] LABS: International Normalized Ratio 2.11; Prothrombin Time Results 21.2 Sec (9.7-11.5)
[2022-10-01 05:55] LABS: BAND PERCENT MAN 11 % (0-8); BASOPHILS PERCENT MAN 0 % (0-2); EOSINOPHILS PERCENT MAN 0 % (0-6); LYMPHOCYTES ABSOLUTE MAN 0.58 K/mm3 (0.84-5.20); LYMPHOCYTES PERCENT MAN 2 % (21-46); METAMYELOCYTE ABSOLUTE MAN 0.29 K/mm3 (0.00-0.00); METAMYELOCYTE PERCENT MAN 1 % (0-0); MONOCYTES ABSOLUTE MAN 0.88 K/mm3 (0.16-1.47); MONOCYTES PERCENT MAN 3 % (4-13); NEUTROPHILS ABSOLUTE MAN 27.68 K/mm3 (1.96-9.15); SEG NEUTROPHILS PERCENT MAN 83 % (41-73); TOTAL CELLS COUNTED 100
--- NOTE | 2022-10-01 06:16 | NUR ---
SHIFT SUMMARY PATIENT REMAINS INTUBATED AND SEDATED ON PROPOFOL. GAG AND COUGH REMAINS PRESENT, PATIENT NOT MOVING UPPER EXTREMITIES OR ABLE TO FOLLOW COMMANDS. 02 SATS 89% ON VENT 12/8 PEEP 14, FI02 100%., CONTINUES TO DESAT, SEDATION TITRATED UP FOR VENT COMPLIANCE. HR A.FIB 100-120, BP HYPOTENSIVE, LEVOPHED STRATED. HOLLINS PATENT, DARK BROWN SCANT AMOUNT OF OUTPUT. PATIENT REPOSITIONED AND CALL LIGHT IN REACH
--- NOTE | 2022-10-01 08:01 | NUR ---
AM NOTE... ASSUMED CARE OF PT AT 0700, PT IS INTUBATED AND SEDATED WITH PROPOFOL RUNNING AT 25MCG/KG. SHE HAS A 7.5 ETT 22 AT THE TEETH. VENT SETTINGS ARE AC/PC: 04/29//100% WITH O2 SATS IN THE LOW 90'S. L/S COARSE T/O. SECRETIONS SUCTIONED VIA THE ET TUBE ARE THIN AND ORANGE/RED IN COLOR. OG TUBE IS PATENT AND SET TO LOW INT WALL SUCTION. GASTRIC FLUID IS DARK BROWN/RED/ORANGE IN COLOR. SHE IS IN SR/ST 90'S-100'S, LEVOPHED WAS RUNNING AT 7MCG/MIN TO KEEP MAPS >65 THIS WAS INCREASED TO 10MCG/MIN DURING THIS ASSESSMENT TO KEEP MAPS >65. SHE HAS 2+ ANASARCA AND 3+ TO HER BLE. BT PRESENT AND HYPOACTIVE, ABD HAS SEVERE DISTENTION AND IS FIRM TO PALPATION. TEMP HOLLINS IS PATENT AND DRAINING A SCANT AMOUNT OF DARK [place] CONCENTRATED URINE. WILL CONTINUE TO MONITOR.
--- NOTE | 2022-10-01 10:42 | NUR ---
PT UPDATE.... PT'S SISTER LINN AND SO CAME TO THE BEDSIDE AT 0900, THEY DECIDED TO MAKE THE PT COMFORT CARE. AT 0930 DR. CHRISTIANSON AT THE BEDSIDE AND SPOKE WITH THE PT'S FAMILY. ORDERS FOR COMFORT CARE WERE GIVEN, PLAN TO EXTUBATE TO COMFORT WHEN RT IS AVAILABLE.
--- NOTE | 2022-10-01 10:45 | NUR ---
Comfort care Received a call from nursing earlier this am that pt has transitioned to comfort care. Macy's sister, Yuly, is at the bedside currently. This display card writer introduced herself to Yuly and established rapport. Macy is currently still on the vent, waiting for RT to come and extubate her. Emotional support provided to Yuly. Yuly reports that Macy will be the third sister she has lost. Yuly reports she feels that staff have kept her informed and have answered her questions. Yuly has no requests at this time. PC to follow.
--- NOTE | 2022-10-01 11:24 | NUR ---
"Spiritual Care | EOL Visit. - [place] Pt. is intubated and not responsive. Pts. sister is present and welcomes my visit. Sister is pleasant and I facilitated a life review. While present pt. is extubated. With sister at bedside, an end of life blessing is given. Pt. declined quickly after extubation with TOD approx. 11:16. Family has chosen [facility] for home services."
--- NOTE | 2022-10-01 12:44 | NUR ---
PT EXTUBTAED TO COMFORT CARE.... PT WAS EXTUBATED TO COMFORT AT 1103, SISTER MAXINE AT THE BEDSIDE WITH PASTOR WATKINS. PT WAS PRE-MEDICATED PRIOR TO EXTUBATION PER EMAR, PT PASSED AT 1116. PT'S YELLOW EARRINGS WITH A SMALL CLEAR STONE WERE REMOVED FROM THE PT'S EAR LOBES AND GIVEN TO THE SISTER PER MAXINE'S REQUEST NO OTHER PERSONAL BELONGINGS WERE PRESENT IN THE ROOM. 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
== END 2022-10-01 11:16 | DRG 64 ==
LOC: ER 06:36 → ICUW 06:37 → ICUE 10:34
PROVIDERS: Emergency Medicine; Internal Medicine Critical Care Medicine; Student in an Organized Health Care Education/Training Program; ADMIT Internal Medicine
PROC: 30233N1 Transfusion of Nonautologous Red Blood Cells into Peripheral Vein, Percutaneous Approach (ICD-10-PCS; 2022-09-28)
PROC: 5A1945Z Respiratory Ventilation, 24-96 Consecutive Hours (ICD-10-PCS; 2022-09-28)
PROC: 0D9680Z Drainage of Stomach with Drainage Device, Via Natural or Artificial Opening Endoscopic (ICD-10-PCS; 2022-09-28)
PROC: 0BJ08ZZ Inspection of Tracheobronchial Tree, Via Natural or Artificial Opening Endoscopic (ICD-10-PCS; 2022-09-28)
PROC: 3E033XZ Introduction of Vasopressor into Peripheral Vein, Percutaneous Approach (ICD-10-PCS; 2022-09-28)
PROC: 0BH17EZ Insertion of Endotracheal Airway into Trachea, Via Natural or Artificial Opening (ICD-10-PCS; principal; 2022-09-28 14:30)
PROC: 0T9B70Z Drainage of Bladder with Drainage Device, Via Natural or Artificial Opening (ICD-10-PCS; 2022-09-30)
DX: I63.532 Cerebral infarction due to unspecified occlusion or stenosis of left posterior cerebral artery (principal); J69.0 Pneumonitis due to inhalation of food and vomit; J80 Acute respiratory distress syndrome; K72.11 Chronic hepatic failure with coma; Z51.5 Encounter for palliative care; Z66 Do not resuscitate; D62 Acute posthemorrhagic anemia; N17.9 Acute kidney failure, unspecified; D68.4 Acquired coagulation factor deficiency; E72.20 Disorder of urea cycle metabolism, unspecified; J90 Pleural effusion, not elsewhere classified; K76.6 Portal hypertension; I85.10 Secondary esophageal varices without bleeding; K92.0 Hematemesis; G81.91 Hemiplegia, unspecified affecting right dominant side; K31.819 Angiodysplasia of stomach and duodenum without bleeding; K44.9 Diaphragmatic hernia without obstruction or gangrene; I95.9 Hypotension, unspecified; I65.21 Occlusion and stenosis of right carotid artery; K76.82 Hepatic encephalopathy; K72.10 Chronic hepatic failure without coma; I48.0 Paroxysmal atrial fibrillation; K21.9 Gastro-esophageal reflux disease without esophagitis; J45.909 Unspecified asthma, uncomplicated; F41.9 Anxiety disorder, unspecified; D69.6 Thrombocytopenia, unspecified; I35.0 Nonrheumatic aortic (valve) stenosis; K70.31 Alcoholic cirrhosis of liver with ascites; E78.5 Hyperlipidemia, unspecified; I12.9 Hypertensive chronic kidney disease with stage 1 through stage 4 chronic kidney disease, or unspecified chronic kidney disease; N18.9 Chronic kidney disease, unspecified; Z98.890 Other specified postprocedural states; Z79.899 Other long term (current) drug therapy
CPT/HCPCS: 36415; 36430; 36569; 51702; 70450; 70496; 70498; 71045; 80047; 80053; 81001; 82140; 82803; 82947; 83735; 83880; 84484; 85014; 85018; 85025; 85610; 85730; 86850; 86900; 86901; 86923; 87070; 87075; 87076; 87086; 87205; 93005; 93010; 93306; 94003; 94640; 94644; 94664; 94762; 96365-59; 96368; 96375; 96375-59; 96376-59; 99291-25; A9270; C1751; C9113; G0378; J0171; J0330; J0696; J1160; J1430; J1940; J2060; J2270; J2354; J2704; J2765; J2930; J3010; J3475; J3480; J7030; J7040; J7042; J7050; J7060; J7120; P9016; P9047; Q9967